=== PATIENT | female | born 1955 | race Caucasian/White ===

== ENCOUNTER 2017-11-11 14:47 | Emergency (ER) | payer MEDICARE, OTHER ==
[~2017-11-11] VITALS: Ht 172.7 cm; Wt 92.0 kg
[2017-11-11 14:53] VITALS: BP 141/62; PULSE 76; RESP 16; TEMP 98.4; O2SAT 98
--- NOTE | 2017-11-11 15:15 | PD ---
HPI . Ear foreign body Chief Complaint: Foreign Body Time Seen by Provider: 15:10 Travel History International Travel<30 days: No Contact w/Intl Traveler<30days: No Traveled to known affect area: No History of Present Illness HPI Patient presents with chief complaint of a bug in her left ear. This started just prior to presentation. She states that she was swimming in the pool when the bug flew in her ear. Symptoms are moderate to severe. PFSH Social History Tobacco Use: No Allergies-Medications (Allergen,Severity, Reaction): Coded Allergies: No Known Allergies (Unverified , 11/11/17) Review of Systems Except as stated in HPI: all other systems reviewed are Neg Physical Exam Narrative GENERAL: Awake and alert and in no acute distress. SKIN: Warm and dry. Normal color and turgor. HEAD: Normocephalic/atraumatic. EYES: Pupils are equal. Extraocular movements are intact. ENT: The bulb was successfully removed by the triage nurse. The patient's TMs are shiny blank with good light reflexes bilaterally. NECK: Normal range of motion. Supple. CARDIOVASCULAR: Regular rate and rhythm. RESPIRATORY: Nonlabored respirations. Normal sats. MUSCULOSKELETAL: Atraumatic. Normal muscle tone. NEUROLOGICAL: A and O 3. Nonfocal. PSYCHIATRIC: Appropriate mood and affect. Data Data Last Documented VS Vital Signs Date Time Temp Pulse Resp B/P (MAP) Pulse Ox O2 Delivery O2 Flow Rate FiO2 11/11/17 14:53 98.4 76 16 141/62 (88) 98 Orders Orders Ed Discharge Order (11/11/17 15:11) [facility] Medical Decision Making Medical Screen Exam Complete: Yes Emergency Medical Condition: Yes Differential Diagnosis Differential diagnosis includes foreign body, ruptured TM, cerumen impaction Narrative Course This patient presents with a bug in her left ear. The back has been successfully removed. Diagnosis Primary Impression: Foreign body of ear, left Qualified Codes: T16.2XXA - Foreign body in left ear, initial encounter Patient Instructions: General Instructions, Ear Foreign Body (ED) Departure Forms: Tests/Procedures Disposition: 01 DISCHARGE HOME Condition: Stable Hilary Bejarano MD Nov 11, 2017 15:15
== END 2017-11-11 15:33 | disposition home or self-care (01) ==
LOC: NEPD 14:47
DX: T16.2XXA Foreign body in left ear, initial encounter (principal)
CPT/HCPCS: 99282

== ENCOUNTER 2017-11-24 17:53 | Observation (INO) | payer MEDICARE, OTHER ==
[~2017-11-24] VITALS: Ht 172.7 cm; Wt 91.0 kg
[2017-11-24 17:56] VITALS: BP 168/67; PULSE 67; RESP 17; TEMP 97.9; O2SAT 99
[2017-11-24] MEDS ORDERED: SODIUM CHLORID 0.9% 500 ML INJ 500 ML IV ONE (18:15)
[2017-11-24] MEDS ORDERED: ASPIRIN 325 MG TAB PO ONE (18:15)
[2017-11-24] MEDS ORDERED: NITROGLYCERIN 0.4 MG SL 25 TABS/BTL SL ONE (18:15)
[2017-11-24] MEDS ORDERED: METOCLOPRAMIDE HCL 10 MG/2 ML VIAL IV PUSH ONE (18:15)
[2017-11-24] MEDS ORDERED: MORPHINE SULFATE 4 MG/ML INJ IV PUSH ONE (18:15)
[2017-11-24 18:19] VITALS: RESP 18; O2SAT 99
[2017-11-24 18:20] VITALS: BP_SYST 124; BP_SYST 168; BP_DIAS 59; BP_DIAS 67; PULSE 56; RESP 18; O2SAT 99
[2017-11-24] MEDS ORDERED: LEVO.1 PO (18:22)
[2017-11-24] MEDS ORDERED: OMEP20TA93 PO (18:22)
[2017-11-24 18:43] LABS: AUTOMATED NEUTROPHIL # 4.4 TH/MM3 (1.8-7.7); BASOPHIL % 0.3 % (0.0-2.0); EOSINOPHIL # 0.1 TH/MM3 (0-0.4); EOSINOPHIL % 1.5 % (0.0-4.0); HEMATOCRIT 37.6 % (35.0-46.0); HEMOGLOBIN 12.1 GM/DL (11.6-15.3); LYMPH % 17.3 % (9.0-44.0); LYMPHOCYTE # 1.1 TH/MM3 (1.0-4.8); MEAN CELL VOLUME 82.4 FL (80.0-100.0); MEAN CORPUSCULAR HEMOGLOBIN 26.5 PG (27.0-34.0); MEAN CORPUSCULAR HGB CONC 32.1 % (32.0-36.0); MEAN PLATELET VOLUME 10.7 FL (7.0-11.0); MONO % 9.7 % (0.0-8.0); MONOCYTE # 0.6 TH/MM3 (0-0.9); NEUT % 71.2 % (16.0-70.0); PLATELET COUNT 170 TH/MM3 (150-450); RED BLOOD COUNT 4.56 MIL/MM3 (4.00-5.30); RED CELL DISTRIBUTION WIDTH 14.3 % (11.6-17.2); WHITE BLOOD COUNT 6.1 TH/MM3 (4.0-11.0)
[2017-11-24 19:01] LABS: PROTHROMBIN TIME - PATIENT 10.1 SEC (9.8-11.6)
[2017-11-24 19:11] LABS: ALT (GPT) 174 U/L (10-53)
--- NOTE | 2017-11-24 19:11 | RADRPT ---
EXAM DATE: 11/24/2017 6:41 PM EDT AGE/SEX: 62 years / Female INDICATIONS: Chest pain. CLINICAL DATA: This is the patient's initial encounter. Patient reports that signs and symptoms have been present for 1 day and indicates a pain score of 9/10. MEDICAL/SURGICAL HISTORY: None. None. COMPARISON: No prior exams available for comparison. FINDINGS: A single AP view of the chest demonstrates the lungs to be symmetrically aerated without evidence of mass, infiltrate or effusion. Mild basilar atelectasis. The cardiomediastinal contours are unremarka ble. Osseous structures are intact. CONCLUSION: Mild basilar atelectasis. No effusion or pneumothorax. Electronically signed by: Kirill Guerra MD 11/24/2017 7:09 PM EDT
[2017-11-24 19:20] LABS: ALBUMIN 3.7 GM/DL (3.4-5.0); ALKALINE PHOSPHATASE 242 U/L (45-117); AST (GOT) 299 U/L (15-37); BICARBONATE 22.7 MEQ/L (21.0-32.0); BLOOD UREA NITROGEN 12 MG/DL (7-18); CALCIUM 8.6 MG/DL (8.5-10.1); CHLORIDE 110 MEQ/L (98-107); GLOMERULAR FILTRATION RATE 50 ML/MIN (>89); GLUCOSE,RANDOM 118 MG/DL (74-106); SODIUM (NA) 142 MEQ/L (136-145); TOTAL BILIRUBIN ADULT 1.1 MG/DL (0.2-1.0); TOTAL PROTEIN 6.8 GM/DL (6.4-8.2); TROPONIN I LESS THAN 0.02 NG/ML (0.02-0.05)
--- NOTE | 2017-11-24 19:28 | PD ---
Physical Exam Date Seen by Provider: Nov 24, 2017 Time Seen by Provider: 18:40 Narrative I, Dr. Izaguirre, have reviewed the advance practice practitioner's documentation and am in agreement, met with the patient face to face, made the diagnosis, and the medical decision making was done by me. *My assessment and Findings: Patient seen and evaluated with PA, please see PA notes for further details. She is here with chest pains that started on its own , accompanied by nausea. She has not had any shortness of breath, vomiting, fevers, or other symptoms. Cardiac exam was fairly unremarkable. Abdomen is fairly nontender without guarding or rebound. EKG shows NSR, no ST elevation or depression, and no arrhythmias. No significant T-wave inversions. Laboratory Tests Test 11/24/17 18:20 Mean Corpuscular Hemoglobin 26.5 PG (27.0-34.0) Neutrophils (%) (Auto) 71.2 % (16.0-70.0) Monocytes (%) (Auto) 9.7 % (0.0-8.0) Activated Partial Thromboplast Time 23.8 SEC (24.3-30.1) Creatinine 1.10 MG/DL (0.50-1.00) Random Glucose 118 MG/DL (74-106) Alkaline Phosphatase 242 U/L (45-117) Aspartate Amino Transf (AST/SGOT) 299 U/L (15-37) Alanine Aminotransferase (ALT/SGPT) 174 U/L (10-53) Total Bilirubin 1.1 MG/DL (0.2-1.0) Chloride Level 110 MEQ/L (98-107) Estimat Glomerular Filtration Rate 50 ML/MIN (>89) Troponin I LESS THAN 0.02 NG/ML Initial chest x-ray and cardiac enzymes were unremarkable. EKG did not show any signs of dysrhythmias. Her lab work did show elevated liver enzymes and ultrasound was ordered for further evaluation. At this point, we are awaiting ultrasound for further disposition. Data Data Last Documented VS Vital Signs Date Time Temp Pulse Resp B/P (MAP) Pulse Ox O2 Delivery O2 Flow Rate FiO2 11/24/17 18:29 18 11/24/17 18:20 56 168/67 (100) 99 Room Air 124/59 (80) 11/24/17 17:56 97.9 Orders Orders Electrocardiogram (11/24/17 18:15) Ckmb (Isoenzyme) Profile (11/24/17 18:15) Complete Blood Count With Diff (11/24/17 18:15) Comprehensive Metabolic Panel (11/24/17 18:15) Magnesium (Mg) (11/24/17 18:15) Prothrombin Time / Inr (Pt) (11/24/17 18:15) Act Partial Throm Time (Ptt) (11/24/17 18:15) Troponin I (11/24/17 18:15) Lipase (11/24/17 18:15) Chest, Single Ap (11/24/17 18:15) Ecg Monitoring (11/24/17 18:15) Bilateral Bp Monitoring (11/24/17 18:15) Iv Access Insert/Monitor (11/24/17 18:15) Oximetry (11/24/17 18:15) Oxygen Administration (11/24/17 18:15) Aspirin (Aspirin) (11/24/17 18:15) Morphine Inj (Morphine Inj) (11/24/17 18:15) Nitroglycerin Sl (Nitrostat Sl) (11/24/17 18:15) Sodium Chlorid 0.9% 500 Ml Inj (Ns 500 M (11/24/17 18:15) Metoclopramide Inj (Reglan Inj) (11/24/17 18:15) CKMB (11/24/17 18:20) CKMB% (11/24/17 18:20) Us Abdomen Gallbladder (11/24/17 ) Labs Laboratory Tests Test 11/24/17 18:20 White Blood Count 6.1 TH/MM3 Red Blood Count 4.56 MIL/MM3 Hemoglobin 12.1 GM/DL Hematocrit 37.6 % Mean Corpuscular Volume 82.4 FL Mean Corpuscular Hemoglobin 26.5 PG Mean Corpuscular Hemoglobin Concent 32.1 % Red Cell Distribution Width 14.3 % Platelet Count 170 TH/MM3 Mean Platelet Volume 10.7 FL Neutrophils (%) (Auto) 71.2 % Lymphocytes (%) (Auto) 17.3 % Monocytes (%) (Auto) 9.7 % Eosinophils (%) (Auto) 1.5 % Basophils (%) (Auto) 0.3 % Neutrophils # (Auto) 4.4 TH/MM3 Lymphocytes # (Auto) 1.1 TH/MM3 Monocytes # (Auto) 0.6 TH/MM3 Eosinophils # (Auto) 0.1 TH/MM3 Basophils # (Auto) 0.0 TH/MM3 CBC Comment DIFF FINAL Differential Comment Prothrombin Time 10.1 SEC Prothromb Time International Ratio 1.0 RATIO Activated Partial Thromboplast Time 23.8 SEC Blood Urea Nitrogen 12 MG/DL Creatinine 1.10 MG/DL Random Glucose 118 MG/DL Total Protein 6.8 GM/DL Albumin 3.7 GM/DL Calcium Level 8.6 MG/DL Magnesium Level 2.0 MG/DL Alkaline Phosphatase 242 U/L Aspartate Amino Transf (AST/SGOT) 299 U/L Alanine Aminotransferase (ALT/SGPT) 174 U/L Total Bilirubin 1.1 MG/DL Sodium Level 142 MEQ/L Potassium Level 4.2 MEQ/L Chloride Level 110 MEQ/L Carbon Dioxide Level 22.7 MEQ/L Anion Gap 9 MEQ/L Estimat Glomerular Filtration Rate 50 ML/MIN Total Creatine Kinase 109 U/L Troponin I LESS THAN 0.02 NG/ML Lipase 248 U/L [facility] Medical Record Reviewed: Yes Supervised Visit with ELVER: Yes Diagnosis Primary Impression: Atypical chest pain Condition: Stable Samson Izaguirre MD Nov 24, 2017 19:28
--- NOTE | 2017-11-24 21:39 | RADRPT ---
EXAM DATE: 11/24/2017 9:08 PM EDT AGE/SEX: 62 years / Female INDICATIONS: RUQ pain. CLINICAL DATA: This is the patient's initial encounter. Patient reports that signs and/or symptoms h ave been present for 1 day and indicates a pain score of 7/10. MEDICAL/SURGICAL HISTORY: Gastroesophageal reflux disease. RUQ pain. Thyroid disease. Hysterectomy . Gastric bypass. COMPARISON: No prior exams available for comparison. MEASUREMENTS (cm x cm x cm): Liver:__ 20.2 cm length Common Bile Duct:__ 5mm FINDINGS: Liver: Increased echotexture without focal lesion or ductal dilation. Portal Vein: Hepatopedal flow seen in portal vein. Common Duct: No intraluminal mass or stone visualized. Gallbladder: Demonstrates no wall thickening or pericholecystic fluid. Stones visualized. Pancreas: Not well visualized. Right Kidney: Normal echotexture and cortical thickness. No mass or hydronephrosis. Other: None. CONCLUSION: 1. Positive for gallstones. No biliary ductal dilatation. Fatty liver, mildly enlarged to 20 cm. Electronically signed by: Kirill Guerra MD 11/24/2017 9:38 PM EDT
[2017-11-24 22:00] VITALS: BP 141/64; PULSE 84; RESP 16; O2SAT 100
[2017-11-24] MEDS ORDERED: ONDANSETRON HCL 4 MG/2 ML VIAL IV PUSH PRN (22:00)
[2017-11-24] MEDS ORDERED: SODIUM CHLORIDE 0.9% FLUSH 10 ML FLUSH IV FLUSH PRN (22:00)
[2017-11-24] MEDS ORDERED: ACETAMINOPHEN 500 MG CPLT PO PRN (22:00)
[2017-11-24 22:46] VITALS: BP 141/71; PULSE 86; RESP 18; TEMP 98.6; O2SAT 99
[2017-11-24] MEDS: ACETAMINOPHEN/HYDROcodone 325 MG/7.5 MG TAB PO PRN (23:17)
[2017-11-24 23:19] LABS: TROPONIN I LESS THAN 0.02 NG/ML (0.02-0.05)
[2017-11-25 00:53] VITALS: PULSE 87
[2017-11-25 01:27] LABS: TROPONIN I LESS THAN 0.02 NG/ML (0.02-0.05)
[2017-11-25 03:20] VITALS: BP 137/60; PULSE 97; RESP 17; TEMP 97.9; O2SAT 97
[2017-11-25] MEDS: ACETAMINOPHEN/HYDROcodone 325 MG/7.5 MG TAB PO PRN ×2 (03:26→08:24)
[2017-11-25 07:37] VITALS: O2SAT 97
[2017-11-25 08:27] VITALS: BP 154/65; PULSE 76; RESP 20; TEMP 98.6; O2SAT 98
[2017-11-25] MEDS ORDERED: SODIUM CHLORIDE 0.9% FLUSH 10 ML FLUSH IV FLUSH SCH (09:00)
--- NOTE | 2017-11-25 09:29 | HHI.HP ---
HPI Service Chest pain center Primary Care Physician Scheduled to see a new primary care physician Sunday a.m. but does not remember the name Chief Complaint Epigastric and chest pain History of Present Illness Very pleasant 62-year-old lady recently retired here from [place] with a history of systemic lupus Anny's thyroiditis fibromyalgia gastric bypass and spinal stenosis. Yesterday after visiting her who has been in the hospital here for several weeks she went home had a hamburger and within a couple of hours developed excruciating pain in the subxiphoid area radiating up into her chest and through into her back. This pain was the most severe she has ever experienced. It was so severe that it precipitated vomiting with no nausea. This began about 3 in the afternoon was described as greater than 10 out of 10 and was relieved only after she came to the hospital at about 730 or 8 :30 at night. She had no other associated symptoms. Review of Systems Cardiovascular: COMPLAINS OF: See HPI Gastrointestinal: COMPLAINS OF: Vomiting Psychiatric: COMPLAINS OF: Anxiety, Depression, Sleep disturbances Endocrine: COMPLAINS OF: Thyroid disease Past Family Social History Allergies: Coded Allergies: No Known Allergies (Unverified , 11/11/17) Past Medical History Systemic lupus treated with Plaquenil but in remission for the last 8 years Anny's thyroiditis in remission Spinal stenosis Fibromyalgia Past Surgical History Hysterectomy in 1990 Gastric bypass in 2009 Reported Medications Reported Meds & Active Scripts Active Reported Synthroid (Levothyroxine Sodium) 100 Mcg Tab 100 Mcg PO DAILY Omeprazole 20 Mg Tab 40 Mg PO DAILY Active Ordered Medications Current Medications Medications (Trade) Dose Ordered Sig/Bert Route Start Time Stop Time Status Last Admin (NS Flush) 2 ml UNSCH PRN IV FLUSH 11/24/17 22:00 (NS Flush) 2 ml BID IV FLUSH 11/25/17 09:00 11/25/17 08:24 (Tylenol) 500 mg Q4H PRN PO 11/24/17 22:00 ([place] 7.5-325 Mg) 1 tab Q4H PRN PO 11/24/17 22:00 11/25/17 08:24 (Zofran Inj) 4 mg Q6H PRN IV PUSH 11/24/17 22:00 Family History Mother age 69 complications from a fall Father age 77 of cancer of the pancreas liver Social History No alcohol or tobacco Retired living here with her who is currently in the hospital in quite ill precipitating considerable stress Physical Exam Vital Signs Vital Signs Date Time Temp Pulse Resp B/P (MAP) Pulse Ox O2 Delivery O2 Flow Rate FiO2 11/25/17 08:27 98.6 76 20 154/65 (94) 98 11/25/17 07:37 97 21 11/25/17 03:20 97.9 97 17 137/60 (85) 97 11/25/17 00:53 87 11/25/17 00:45 21 11/24/17 22:46 98.6 86 18 141/71 (94) 99 11/24/17 22:30 11/24/17 22:00 84 16 141/64 (89) 100 Room Air 11/24/17 18:29 18 11/24/17 18:29 18 11/24/17 18:20 56 18 168/67 (100) 99 Room Air 124/59 (80) 11/24/17 18:19 99 Room Air 11/24/17 18:19 18 99 Room Air 11/24/17 17:57 69 18 99 Room Air 11/24/17 17:56 97.9 67 17 168/67 (100) 99 Physical Exam Alert cooperative lady in minimal pain at the time of this exam she is obese Skin warm and dry and Head normocephalic atraumatic care short but normal distribution Eyes PERRLA EOMI sclera clear Mouth mucous membranes moist and well papillated no lesions Neck supple no JVD masses nodes or bruits thyroid is not palpable Chest tender at the subxiphoid process with good breath sounds no rales wheezes or rhonchi Cardiovascular regular sinus rhythm no gallops or rubs a very soft 1/6 murmur is noted Abdomen tender in the epigastric area but no masses no guarding or rebound Extremities no clubbing cyanosis or edema Neurologic cranial nerves are intact gross motor movements are intact all 4 extremities Laboratory Laboratory Tests Test 11/24/17 18:20 11/24/17 22:14 11/25/17 00:40 White Blood Count 6.1 Red Blood Count 4.56 Hemoglobin 12.1 Hematocrit 37.6 Mean Corpuscular Volume 82.4 Mean Corpuscular Hemoglobin 26.5 Mean Corpuscular Hemoglobin Concent 32.1 Red Cell Distribution Width 14.3 Platelet Count 170 Mean Platelet Volume 10.7 Neutrophils (%) (Auto) 71.2 Lymphocytes (%) (Auto) 17.3 Monocytes (%) (Auto) 9.7 Eosinophils (%) (Auto) 1.5 Basophils (%) (Auto) 0.3 Neutrophils # (Auto) 4.4 Lymphocytes # (Auto) 1.1 Monocytes # (Auto) 0.6 Eosinophils # (Auto) 0.1 Basophils # (Auto) 0.0 CBC Comment DIFF FINAL Differential Comment Prothrombin Time 10.1 Prothromb Time International Ratio 1.0 Activated Partial Thromboplast Time 23.8 Blood Urea Nitrogen 12 Creatinine 1.10 Random Glucose 118 Total Protein 6.8 Albumin 3.7 Calcium Level 8.6 Magnesium Level 2.0 Alkaline Phosphatase 242 Aspartate Amino Transf (AST/SGOT) 299 Alanine Aminotransferase (ALT/SGPT) 174 Total Bilirubin 1.1 Sodium Level 142 Potassium Level 4.2 Chloride Level 110 Carbon Dioxide Level 22.7 Anion Gap 9 Estimat Glomerular Filtration Rate 50 Total Creatine Kinase 109 77 71 Creatine Kinase MB 0.6 Troponin I LESS THAN 0.02 LESS THAN 0.02 LESS THAN 0.02 Lipase 248 Result Diagram: 11/24/17 18211/24/17 182 Imaging Chest x-ray unremarkable Gallbladder shows gallstones Course Patient is ruled out for ACS with negative enzymes and EKGs. However she has mildly elevated liver functions and alk phos set for TACE with documented gallstones. Her episode is most likely related to an attack of cholecystitis. She is stable at this time and scheduled to see her new primary care physician in the morning. She strongly declines either a walking stress test or a nuclear stress test and therefore is discharged with information regarding her hospitalization to discuss with her primary care physician in the morning. Caprini VTE Risk Assessment Caprini VTE Risk Assessment: No/Low Risk (score <= 1) Caprini Risk Assessment Model Point Value = 1 Point Value = 2 Point Value = 3 Point Value = 5 Age 41-60 Minor surgery BMI > 25 kg/m2 Swollen legs Varicose veins or History of unexplained or recurrent spontaneous Oral contraceptives or hormone replacement Sepsis (< 1 month) Serious lung disease, including pneumonia (< 1 month) Abnormal pulmonary function Acute myocardial infarction Congestive heart failure (< 1 month) History of inflammatory bowel disease Medical patient at bed rest Age 61-74 Arthroscopic surgery Major open surgery (> 45 min) Laparoscopic surgery (> 45 min) Malignancy Confined to bed (> 72 hours) Immobilizing plaster cast Central venous access Age >= 75 History of VTE Family history of VTE Factor V Leiden Prothrombin [id number] Lupus anticoagulant Anticardiolipin antibodies Elevated serum homocysteine Heparin-induced thrombocytopenia Other congenital or acquired thrombophilia Stroke (< 1 month) Elective arthroplasty Hip, pelvis, or leg fracture Acute spinal cord injury (< 1 month) Prophylaxis Regimen Total Risk Factor Score Risk Level Prophylaxis Regimen 0-1 Low Early ambulation 2 Moderate Order ONE of the following: *Sequential Compression Device (SCD) *Heparin 5000 units SQ BID 3-4 Higher Order ONE of the following medications: *Heparin 5000 units SQ TID *Enoxaparin/Lovenox 40 mg SQ daily (WT < 150 kg, CrCl > 30 mL/min) *Enoxaparin/Lovenox 30 mg SQ daily (WT < 150 kg, CrCl > 10-29 mL/min) *Enoxaparin/Lovenox 30 mg SQ BID (WT < 150 kg, CrCl > 30 mL/min) AND/OR *Sequential Compression Device (SCD) 5 or more Highest Order ONE of the following medications: *Heparin 5000 units SQ TID (Preferred with Epidurals) *Enoxaparin/Lovenox 40 mg SQ daily (WT < 150 kg, CrCl > 30 mL/min) *Enoxaparin/Lovenox 30 mg SQ daily (WT < 150 kg, CrCl > 10-29 mL/min) *Enoxaparin/Lovenox 30 mg SQ BID (WT < 150 kg, CrCl > 30 mL/min) AND *Sequential Compression Device (SCD) Assessment and Plan Problem List: (1) Gastric bypass status for obesity ICD Codes: Z98.84 - Bariatric surgery status Status: Chronic (2) Gall bladder disease ICD Codes: K82.9 - Disease of gallbladder, unspecified Status: Acute Plan: Patient has a positive scan for gallstones with positive alk phos slightly elevated LFTs. She is referred to follow-up with her primary care physician in the morning (3) Chest pain of uncertain etiology ICD Codes: R07.89 - Other chest pain Status: Acute Plan: Patient ruled out for ACS by chest pain center protocol. She declined further stress testing either by exercise or nuclear scan (4) Lupus (systemic lupus erythematosus) ICD Codes: M32.9 - Systemic lupus erythematosus, unspecified Status: Chronic (5) Thyroiditis, chronic ICD Codes: E06.5 - Other chronic thyroiditis Status: Resolved (6) Fibromyalgia ICD Codes: M79.7 - Fibromyalgia Status: Chronic Problem Qualifiers (1) Lupus (systemic lupus erythematosus): Wilian Eisenberg MD Nov 25, 2017 09:29
--- NOTE | 2017-11-25 09:44 | HHI.DCPOC ---
Discharge Care Plan Diagnosis: (1) Chest pain of uncertain etiology (2) Gall bladder disease (3) Lupus (systemic lupus erythematosus) (4) Thyroiditis, chronic (5) Fibromyalgia (6) Gastric bypass status for obesity Goals to Promote Your Health * To prevent worsening of your condition and complications * To maintain your health at the optimal level Directions to Meet Your Goals Take your medications as prescribed Follow your dietary instruction Follow activity as directed Keep your appointments as scheduled Take your immunizations and boosters as scheduled If your symptoms worsen call your PCP, if no PCP go to Urgent Care Center or Emergency Room Smoking is Dangerous to Your Health. Avoid second hand smoke Call the 24-hour hour crisis hotline for domestic abuse at [facility] Nov 25, 2017 09:44
--- NOTE | 2017-11-25 13:47 | EKG ---
Date Performed: 11/24/2017 Time Performed: 22:04:57 PTAGE: 62 years EKG: Sinus rhythm POSSIBLE LEFT ATRIAL ENLARGEMENT LOW QRS VOLTAGE IN PRECORDIAL LEADS BORDERLINE ECG PREVIOUS TRACING : 11/24/2017 17.56 Since the previous tracing, no significant change noted DOCTOR: Wilian Eisenberg Interpretating Date/Time 11/25/2017 13:44:11
--- NOTE | 2017-11-25 13:58 | EKG ---
Date Performed: 11/24/2017 Time Performed: 17:56:51 PTAGE: 62 years EKG: Sinus rhythm POSSIBLE LEFT ATRIAL ENLARGEMENT BORDERLINE ECG NO PREVIOUS TRACING DOCTOR: Wilian Eisenberg Interpretating Date/Time 11/25/2017 13:48:53
--- NOTE | 2017-11-26 13:24 | EKG ---
Date Performed: 11/25/2017 Time Performed: 00:25:39 PTAGE: 62 years EKG: Sinus rhythm WITH FIRST DEGREE AV BLOCK LOW QRS VOLTAGE IN PRECORDIAL LEADS ABNORMAL ECG PREVIOUS TRACING : 11/24/2017 22.04 Since the previous tracing, no significant change noted DOCTOR: Wilian Eisenberg Interpretating Date/Time 11/26/2017 13:22:58
--- NOTE | 2017-11-29 11:16 | PD ---
HPI Chief Complaint: Chest Pain Time Seen by Provider: 19:28 Travel History International Travel<30 days: No Contact w/Intl Traveler<30days: No Traveled to known affect area: No History of Present Illness HPI 62-year-old female that presents to the ED for evaluation of chest pain with nausea and vomiting. Patient started with pain for about 3 hours before coming. Patient apparently developed this pain will trying to visit her significant other. Apparently her is recently admitted to the hospital here. Patient has been having this pain since it feels like a pressure. She states that the pain stays in the mid chest and causes nausea. Feels like a pressure. Does not radiate. She does state that she has a history of ACS as well as Anny thyroiditis, fibromyalgia, lupus, as well as spinal stenosis. Has no allergies to medication. No other medical issues. No urinary or bowel movement issues. Pain per patient is 7 out of 10. She did not took anything for this. No recent injury. PFSH Past Medical History Heart Rhythm Problems: No (heart murmur) Cardiac Catheterization: Yes High Cholesterol: No Congestive Heart Failure: No Diabetes: No Patient Takes Glucophage: No Diminished Hearing: No GERD: Yes Genitourinary: Yes Medical other: Yes Thyroid Disease: Yes Tetanus Vaccination: > 5 Years Influenza Vaccination: No ?: Not : 2 Para: 2 Past Surgical History Abdominal Surgery: Yes Coronary Artery Bypass Graft: No Gynecologic Surgery: Yes Hysterectomy: Yes Social History Alcohol Use: Yes (ocassionally) Tobacco Use: No Substance Use: Yes (marianna) Allergies-Medications (Allergen,Severity, Reaction): Coded Allergies: No Known Allergies (Unverified , 11/26/17) Reported Meds & Prescriptions Reported Meds & Active Scripts Active Reported Synthroid (Levothyroxine Sodium) 100 Mcg Tab 100 Mcg PO DAILY Omeprazole 20 Mg Tab 40 Mg PO DAILY Review of Systems Except as stated in HPI: all other systems reviewed are Neg Physical Exam Narrative GENERAL: SKIN: Warm and dry. HEAD: Atraumatic. Normocephalic. EYES: Pupils equal and round. No scleral icterus. No injection or drainage. ENT: No nasal bleeding or discharge. Mucous membranes pink and moist. Tongue is midline. No uvula deviation NECK: Trachea midline. No JVD. CARDIOVASCULAR: Regular rate and rhythm. No murmurs, S3, S4. RESPIRATORY: No accessory muscle use. Clear to auscultation. Breath sounds equal bilaterally. GASTROINTESTINAL: Abdomen soft, non-tender, nondistended. Hepatic and splenic margins not palpable. MUSCULOSKELETAL: Extremities without clubbing, cyanosis, or edema. No obvious deformities. Full range of motion of the upper and lower extremities bilaterally. 2+ pulses bilaterally. NEUROLOGICAL: Awake and alert. No obvious cranial nerve deficits. Motor grossly within normal limits. Five out of 5 muscle strength in the arms and legs. Normal speech. PSYCHIATRIC: Appropriate mood and affect; insight and judgment normal. Data Data Orders Orders Electrocardiogram (11/24/17 18:15) Ckmb (Isoenzyme) Profile (11/24/17 18:15) Complete Blood Count With Diff (11/24/17 18:15) Comprehensive Metabolic Panel (11/24/17 18:15) Magnesium (Mg) (11/24/17 18:15) Prothrombin Time / Inr (Pt) (11/24/17 18:15) Act Partial Throm Time (Ptt) (11/24/17 18:15) Troponin I (11/24/17 18:15) Lipase (11/24/17 18:15) Chest, Single Ap (11/24/17 18:15) Ecg Monitoring (11/24/17 18:15) Bilateral Bp Monitoring (11/24/17 18:15) Iv Access Insert/Monitor (11/24/17 18:15) Oximetry (11/24/17 18:15) Oxygen Administration (11/24/17 18:15) Aspirin (Aspirin) (11/24/17 18:15) Morphine Inj (Morphine Inj) (11/24/17 18:15) Nitroglycerin Sl (Nitrostat Sl) (11/24/17 18:15) Sodium Chlorid 0.9% 500 Ml Inj (Ns 500 M (11/24/17 18:15) Metoclopramide Inj (Reglan Inj) (11/24/17 18:15) CKMB (11/24/17 18:20) CKMB% (11/24/17 18:20) Us Abdomen Gallbladder (11/24/17 ) Admit Order (Ed Use Only) (11/24/17 21:47) Activity Bed Rest With Brp (11/24/17 21:47) Vital Signs (Adult) Q4H (11/24/17 21:47) Cardiac Rhythm .As Directed (11/24/17 21:47) Notify Dr: Other .PRN (11/24/17 21:47) Notify Dr. Parameters (11/24/17 21:47) Resp Oxygen Nasal Cannula (11/24/17 ) Ckmb (Isoenzyme) Profile (11/24/17 21:47) Ckmb (Isoenzyme) Profile (11/25/17 00:47) Troponin I (11/24/17 21:47) Troponin I (11/25/17 00:47) Electrocardiogram (11/24/17 21:47) Electrocardiogram (11/25/17 00:47) ^ Obtain (11/24/17 21:47) Sodium Chloride 0.9% Flush (Ns Flush) (11/24/17 22:00) Sodium Chloride 0.9% Flush (Ns Flush) (11/25/17 09:00) Acetaminophen (Tylenol) (11/24/17 22:00) Acetamin-Hydrocod 325-7.5 Mg ([place]isle 7.5 (11/24/17 22:00) Ondansetron Inj (Zofran Inj) (11/24/17 22:00) Fiberglass Model Maker / Telemetry ADINA.Q8H (11/24/17 21:47) Labs Laboratory Tests Test 11/24/17 18:20 White Blood Count 6.1 TH/MM3 Red Blood Count 4.56 MIL/MM3 Hemoglobin 12.1 GM/DL Hematocrit 37.6 % Mean Corpuscular Volume 82.4 FL Mean Corpuscular Hemoglobin 26.5 PG Mean Corpuscular Hemoglobin Concent 32.1 % Red Cell Distribution Width 14.3 % Platelet Count 170 TH/MM3 Mean Platelet Volume 10.7 FL Neutrophils (%) (Auto) 71.2 % Lymphocytes (%) (Auto) 17.3 % Monocytes (%) (Auto) 9.7 % Eosinophils (%) (Auto) 1.5 % Basophils (%) (Auto) 0.3 % Neutrophils # (Auto) 4.4 TH/MM3 Lymphocytes # (Auto) 1.1 TH/MM3 Monocytes # (Auto) 0.6 TH/MM3 Eosinophils # (Auto) 0.1 TH/MM3 Basophils # (Auto) 0.0 TH/MM3 CBC Comment DIFF FINAL Differential Comment Prothrombin Time 10.1 SEC Prothromb Time International Ratio 1.0 RATIO Activated Partial Thromboplast Time 23.8 SEC Blood Urea Nitrogen 12 MG/DL Creatinine 1.10 MG/DL Random Glucose 118 MG/DL Total Protein 6.8 GM/DL Albumin 3.7 GM/DL Calcium Level 8.6 MG/DL Magnesium Level 2.0 MG/DL Alkaline Phosphatase 242 U/L Aspartate Amino Transf (AST/SGOT) 299 U/L Alanine Aminotransferase (ALT/SGPT) 174 U/L Total Bilirubin 1.1 MG/DL Sodium Level 142 MEQ/L Potassium Level 4.2 MEQ/L Chloride Level 110 MEQ/L Carbon Dioxide Level 22.7 MEQ/L Anion Gap 9 MEQ/L Estimat Glomerular Filtration Rate 50 ML/MIN Total Creatine Kinase 109 U/L Creatine Kinase MB 0.6 NG/ML Troponin I LESS THAN 0.02 NG/ML Lipase 248 U/L MDM Medical Decision Making Medical Screen Exam Complete: Yes Emergency Medical Condition: Yes Medical Record Reviewed: Yes Interpretation(s) CBC & BMP Diagram 11/24/17 18:20 Total Protein 6.8, Albumin 3.7, Calcium Level 8.6, Magnesium Level 2.0, Alkaline Phosphatase 242 H, Aspartate Amino Transf (AST/SGOT) 299 H, Alanine Aminotransferase (ALT/SGPT) 174 H, Total Bilirubin 1.1 H Last Impressions Chest X-Ray 11/24/17 1815 Signed Impressions: CONCLUSION: Mild basilar atelectasis. No effusion or pneumothorax. Gall Bladder Ultrasound 11/24/17 0000 Signed Impressions: CONCLUSION: 1. Positive for gallstones. No biliary ductal dilatation. Fatty liver, mildly enlarged to 20 cm. EKG showed sinus rhythm with no sign of acute ischemia or arrythmia read by me and attending. troponin and CKMB negative Differential Diagnosis Chest pain versus a typical chest pain versus chronic pain versus gallbladder disease Narrative Course 62-year-old female that presents to the ED for evaluation of chest pain. Patient was properly examined and was found to have signs and symptoms consistent with appears to be chest pain. Unclear etiology at this time. She does have risk factors for ACS. Labs and imaging order. Labs and imaging unremarcable other than elevated liver enzymes. US ordered and showed gallstones but no sign of cholecystitis. My attending Dr. Contreras evaluated the patient and recommends admission to the chest pain center. Patient agrees with this. Patient was admitted to the chest pain center by me. Diagnosis Primary Impression: Atypical chest pain Admitting Information Admitting Physician Requests: Observation Patient Instructions: Chest Pain (DC), Heart Healthy Diet (DC) Condition: Stable Simone Connolly Nov 29, 2017 11:16
== END 2017-11-25 13:14 | disposition home or self-care (01) ==
LOC: NEPE 17:53 → NEDA 21:49 → NEPHCDU 22:36
PROVIDERS: ADMIT Internal Medicine Interventional Cardiology; ATTEND Internal Medicine Interventional Cardiology
DX: R07.89 Other chest pain (principal); K82.9 Disease of gallbladder, unspecified; M32.9 Systemic lupus erythematosus, unspecified; E06.5 Other chronic thyroiditis; M79.7 Fibromyalgia; Z98.84 Bariatric surgery status; E06.3 Autoimmune thyroiditis; R11.2 Nausea with vomiting, unspecified; R94.31 Abnormal electrocardiogram [ECG] [EKG]
CPT/HCPCS: 71045; 76705; 80053; 82550; 82552; 83690; 83735; 84484; 85025; 85610; 85730; 93005; 96361; 96374; 96375; 99285; G0378; J2270; J2765; J7040

== ENCOUNTER 2017-11-26 17:00 | Inpatient (IN) | payer MEDICARE, OTHER ==
[~2017-11-26] VITALS: Ht 172.7 cm; Wt 90.0 kg
[~2017-11-26 17:00] MED LIST: LEVO.1 PO; OMEP20TA93 PO
[2017-11-26 17:30] VITALS: BP 140/64; PULSE 79; RESP 16; TEMP 99.5; O2SAT 99
[2017-11-26] MEDS ORDERED: SODIUM CHLOR 0.9% 1000 ML INJ 1,000 ML IV SCH (19:40)
--- NOTE | 2017-11-26 19:44 | PD ---
HPI Chief Complaint: GI Complaint Time Seen by Provider: 19:32 Travel History International Travel<30 days: No Contact w/Intl Traveler<30days: No Traveled to known affect area: No History of Present Illness HPI 62-year-old female presents for evaluation of abdominal pain, nausea and vomiting. Symptoms initially started 4-5 days ago after eating hamburger. Initially the pain radiated into the chest and into her back. She was seen here and admitted him to the chest pain center. She was ruled out for ACS. She had a right upper quadrant ultrasound which was positive for gallstones and the metals analyst felt that her pain was related to her gallbladder. She followed up with the primary care physician today who is trying to refer her to a surgeon but cannot get an appointment until January. In meanwhile she has been having persistent and worsening abdominal pain as well as persistent nausea and vomiting which prompted reevaluation today. The pain is an aching pain in the right upper and left upper quadrants, constant, currently no aggravating or relieving factors. She reports that she has been able to keep down a little bit of fluid intermittently but has not had any solid foods 3 days. She reports that she has had chills and myalgias but no objective fevers. Denies dysuria, flank pain, chest pain, shortness of breath. No other complaints at this time. PFSH Past Medical History Heart Rhythm Problems: No (heart murmur) Cardiac Catheterization: Yes High Cholesterol: No Congestive Heart Failure: No Diabetes: No Diminished Hearing: No GERD: Yes Genitourinary: Yes Heparin Induced Thrombocytopen: No Hypertension: No Immunizations Current: Yes Thyroid Disease: Yes Tetanus Vaccination: Unknown Influenza Vaccination: No ?: Not : 2 Para: 2 Past Surgical History Abdominal Surgery: Yes Coronary Artery Bypass Graft: No Gynecologic Surgery: Yes Hysterectomy: Yes Family History Family Myocardial Infarction: Yes (grandfathers: both of [place]) Social History Alcohol Use: Yes (ocassionally) Tobacco Use: No Substance Use: Yes ([facility]) Allergies-Medications (Allergen,Severity, Reaction): Coded Allergies: No Known Allergies (Unverified , 11/26/17) Reported Meds & Prescriptions Reported Meds & Active Scripts Active Reported Synthroid (Levothyroxine Sodium) 100 Mcg Tab 100 Mcg PO DAILY Omeprazole 20 Mg Tab 40 Mg PO DAILY Review of Systems Except as stated in HPI: all other systems reviewed are Neg Physical Exam Narrative GENERAL: Well-developed well-nourished female no acute distress vital signs reviewed SKIN: Warm and dry. HEAD: Atraumatic. Normocephalic. EYES: Pupils equal and round. No scleral icterus. No injection or drainage. ENT: No nasal bleeding or discharge. Mucous membranes pink and moist. NECK: Trachea midline. No JVD. CARDIOVASCULAR: Regular rate and rhythm. No murmur appreciated. RESPIRATORY: No accessory muscle use. Clear to auscultation. Breath sounds equal bilaterally. GASTROINTESTINAL: Abdomen soft, tender to palpation right upper quadrant left upper quadrant without guarding. MUSCULOSKELETAL: No obvious deformities. No clubbing. No cyanosis. No edema. NEUROLOGICAL: Awake and alert. No obvious cranial nerve deficits. Motor grossly within normal limits. Normal speech. PSYCHIATRIC: Appropriate mood and affect; insight and judgment normal. Data Data Last Documented VS Vital Signs Date Time Temp Pulse Resp B/P (MAP) Pulse Ox O2 Delivery O2 Flow Rate FiO2 11/26/17 21:24 16 11/26/17 17:30 99.5 79 140/64 (89) 99 Orders Orders Complete Blood Count With Diff (11/26/17 19:40) Comprehensive Metabolic Panel (11/26/17 19:40) Lipase (11/26/17 19:40) Prothrombin Time / Inr (Pt) (11/26/17 19:40) Act Partial Throm Time (Ptt) (11/26/17 19:40) Urinalysis - C+S If Indicated (11/26/17 19:40) Us Abdomen Gallbladder (11/26/17 ) Iv Access Insert/Monitor (11/26/17 19:40) Morphine Inj (Morphine Inj) (11/26/17 19:45) Pantoprazole Inj (Protonix Inj) (11/26/17 19:45) Sodium Chlor 0.9% 1000 Ml Inj (Ns 1000 M (11/26/17 19:40) Metoclopramide Inj (Reglan Inj) (11/26/17 19:45) Lactic Acid (11/26/17 19:40) Electrocardiogram (11/26/17 19:40) Piperacil-Tazo 3.375 Gm Premix (Zosyn 3. (11/26/17 21:00) Admit Order (Ed Use Only) (11/26/17 ) Labs Laboratory Tests Test 11/26/17 20:00 White Blood Count 5.2 TH/MM3 Red Blood Count 4.78 MIL/MM3 Hemoglobin 12.5 GM/DL Hematocrit 38.7 % Mean Corpuscular Volume 80.9 FL Mean Corpuscular Hemoglobin 26.2 PG Mean Corpuscular Hemoglobin Concent 32.4 % Red Cell Distribution Width 14.2 % Platelet Count 186 TH/MM3 Mean Platelet Volume 10.6 FL Neutrophils (%) (Auto) 77.1 % Lymphocytes (%) (Auto) 11.7 % Monocytes (%) (Auto) 8.7 % Eosinophils (%) (Auto) 2.2 % Basophils (%) (Auto) 0.3 % Neutrophils # (Auto) 4.0 TH/MM3 Lymphocytes # (Auto) 0.6 TH/MM3 Monocytes # (Auto) 0.5 TH/MM3 Eosinophils # (Auto) 0.1 TH/MM3 Basophils # (Auto) 0.0 TH/MM3 CBC Comment DIFF FINAL Differential Comment Prothrombin Time 10.2 SEC Prothromb Time International Ratio 1.0 RATIO Activated Partial Thromboplast Time 21.5 SEC Urine Color Dolores Urine Turbidity CLEAR Urine pH 5.0 Urine Specific Keeler 1.027 Urine Protein 30 mg/dL Urine Glucose (UA) NEG mg/dL Urine Ketones NEG mg/dL Urine Occult Blood LARGE Urine Nitrite NEG Urine Bilirubin MOD Urine Urobilinogen 4.0 OR GREATER mg/dL Urine Leukocyte Esterase TRACE Urine RBC 169 /hpf Urine WBC 7 /hpf Urine Squamous Epithelial Cells 2 /hpf Urine Bacteria RARE /hpf Urine Mucus FEW /lpf Urine Yeast (Budding) RARE Microscopic Urinalysis Comment CULT NOT INDICATED Blood Urea Nitrogen 10 MG/DL Creatinine 1.13 MG/DL Random Glucose 89 MG/DL Total Protein 7.5 GM/DL Albumin 3.7 GM/DL Calcium Level 9.1 MG/DL Alkaline Phosphatase 248 U/L Aspartate Amino Transf (AST/SGOT) 267 U/L Alanine Aminotransferase (ALT/SGPT) 472 U/L Total Bilirubin 4.1 MG/DL Sodium Level 139 MEQ/L Potassium Level 3.7 MEQ/L Chloride Level 107 MEQ/L Carbon Dioxide Level 22.8 MEQ/L Anion Gap 9 MEQ/L Estimat Glomerular Filtration Rate 49 ML/MIN Lactic Acid Level 0.7 mmol/L Lipase 205 U/L [facility] Medical Decision Making Medical Screen Exam Complete: Yes Emergency Medical Condition: Yes Medical Record Reviewed: Yes Differential Diagnosis Biliary colic, cholecystitis, choledocholithiasis, gastritis, peptic ulcer disease, pancreatitis, colitis Narrative Course The patient was placed on ECG monitoring pulse oximetry. A 12 EKG was ordered. Lab work, right upper quadrant ultrasound has been ordered. I reviewed her lab work from her recent visit. She had elevated bilirubin, AST, ALT, ALP and her gallbladder ultrasound was positive for stones. Since her discharge she has had constant unrelenting right upper quadrant pain. The patient's total bilirubin, AST and ALT are increased from previous visit. Ultrasound is consistent with cholecystitis. Dr. Woodson discussed with the on- call general surgeon who would like the patient to be admitted, he will consult , gastroenterology will consult. IV Zosyn ordered. Diagnosis Primary Impression: Cholecystitis Admitting Information Admitting Physician Requests: it Herminio Samayoa Nov 26, 2017 19:44
[2017-11-26] MEDS ORDERED: MORPHINE SULFATE 4 MG/ML INJ IV PUSH ONE (19:45)
[2017-11-26] MEDS ORDERED: PANTOPRAZOLE SODIUM 40 MG VIAL IVP ONE (19:45)
[2017-11-26] MEDS ORDERED: METOCLOPRAMIDE HCL 10 MG/2 ML VIAL IV PUSH ONE (19:45)
[2017-11-26 20:10] LABS: BASOPHIL % 0.3 % (0.0-2.0); EOSINOPHIL # 0.1 TH/MM3 (0-0.4); EOSINOPHIL % 2.2 % (0.0-4.0); HEMATOCRIT 38.7 % (35.0-46.0); HEMOGLOBIN 12.5 GM/DL (11.6-15.3); LYMPH % 11.7 % (9.0-44.0); LYMPHOCYTE # 0.6 TH/MM3 (1.0-4.8); MEAN CELL VOLUME 80.9 FL (80.0-100.0); MEAN CORPUSCULAR HEMOGLOBIN 26.2 PG (27.0-34.0); MEAN CORPUSCULAR HGB CONC 32.4 % (32.0-36.0); MEAN PLATELET VOLUME 10.6 FL (7.0-11.0); MONO % 8.7 % (0.0-8.0); MONOCYTE # 0.5 TH/MM3 (0-0.9); NEUT % 77.1 % (16.0-70.0); PLATELET COUNT 186 TH/MM3 (150-450); RED BLOOD COUNT 4.78 MIL/MM3 (4.00-5.30); RED CELL DISTRIBUTION WIDTH 14.2 % (11.6-17.2); WHITE BLOOD COUNT 5.2 TH/MM3 (4.0-11.0)
[2017-11-26 20:21] LABS: PROTHROMBIN TIME - PATIENT 10.2 SEC (9.8-11.6)
[2017-11-26 20:30] LABS: BACTERIA, URINE RARE /hpf; BILIRUBIN, URINE MOD (NEG); BLOOD, URINE LARGE (NEG); GLUCOSE,URINE NEG (NEG); KETONE, URINE NEG (NEG); MUCUS URINE FEW /lpf (OCC); NITRITE,URINE NEG (NEG); SQUAMOUS EPITHELIAL CELL URINE 2 /hpf (0-5); URINE COLOR Amber (YELLW/STRAW); URINE LEUKOCYTE ESTERASE TRACE (NEG)
[2017-11-26 20:46] LABS: ALBUMIN 3.7 GM/DL (3.4-5.0); ALKALINE PHOSPHATASE 248 U/L (45-117); ALT (GPT) 472 U/L (10-53); AST (GOT) 267 U/L (15-37); BICARBONATE 22.8 MEQ/L (21.0-32.0); BLOOD UREA NITROGEN 10 MG/DL (7-18); CALCIUM 9.1 MG/DL (8.5-10.1); CHLORIDE 107 MEQ/L (98-107); CREATININE 1.13 MG/DL (0.50-1.00); GLOMERULAR FILTRATION RATE 49 ML/MIN (>89); GLUCOSE,RANDOM 89 MG/DL (74-106); SODIUM (NA) 139 MEQ/L (136-145); TOTAL BILIRUBIN ADULT 4.1 MG/DL (0.2-1.0); TOTAL PROTEIN 7.5 GM/DL (6.4-8.2)
[2017-11-26] MEDS ORDERED: PIPERACIL-TAZO 3.375 GM PREMIX 50 ML IV ONE (21:00)
--- NOTE | 2017-11-26 21:01 | RADRPT ---
EXAM DATE: 11/26/2017 8:58 PM EDT AGE/SEX: 62 years / Female INDICATIONS: Increasing right upper quadrant pain. CLINICAL DATA: This is the patient's subsequent encounter. Patient reports that signs and/or symptom s have been present for 3 days and indicates a pain score of 10/10. MEDICAL/SURGICAL HISTORY: Gastroesophageal reflux disease. RUQ pain. Hysterectomy. Gastric bypass . COMPARISON: [facility] [place], US ABDOMEN - GALLBLADDER, 11/24/2017. . MEASUREMENTS (cm x cm x cm): Liver:__ 18.0 cm length Common Bile Duct:__ 6mm FINDINGS: Liver: Normal echotexture without focal lesion or ductal dilatation. Portal Vein: Hepatopedal flow seen in portal vein. Common Duct: No intraluminal mass or stone visualized. Gallbladder: Positive for gallstones with gallbladder sludge. Gallbladder wall thickened to 5 mm. Pancreas: The visualized portions are within normal limits Right Kidney: Normal echotexture and cortical thickness. No mass or hydronephrosis. Other: None. CONCLUSION: 1. Examination positive for gallstones with gallbladder sludge and gallbladder wall thickening which has developed over the last 2 days. No evidence for choledocholithiasis on ultrasound. Electronically signed by: Kirill Guerra MD 11/26/2017 9:00 PM EDT
[2017-11-26] MEDS ORDERED: SENNOSIDES 8.6 MG TAB PO PRN (22:15)
[2017-11-26] MEDS ORDERED: MAGNESIUM HYDROXIDE SUSP 30 ML CUP PO PRN (22:15)
[2017-11-26] MEDS ORDERED: MORPHINE SULFATE 4 MG/ML INJ IV PUSH PRN (22:15)
[2017-11-26] MEDS ORDERED: ACETAMINOPHEN 325 MG TAB PO PRN (22:15)
[2017-11-26] MEDS ORDERED: BISACODYL 10 MG SUPP RECTAL PRN (22:15)
[2017-11-26] MEDS ORDERED: SODIUM CHLORIDE 0.9% FLUSH 10 ML FLUSH IV FLUSH PRN (22:15)
[2017-11-26] MEDS ORDERED: NALOXONE HCL 0.4 MG/ML AMP IV PUSH PRN (22:15)
[2017-11-26] MEDS ORDERED: LACTULOSE SYRUP 20 GM/30 ML CUP PO PRN (22:15)
--- NOTE | 2017-11-26 22:33 | HHI.HP ---
[facility] Service Family Medicine Primary Care Physician Hemalatha Arriaza MD Admission Diagnosis Cholecystitis, choledocholithiasis Diagnoses: International Travel<30 Days: No Contact w/Intl Traveler<30days: No Known Affected Area: No History of Present Illness 62 yo female with history of gastric bypass, lupus, marika's thyroiditis presenting with a 2 day history of upper abdominal pain worsened with food intake. Episode first started on Sunday about half an hour after eating a burger from [employer]. She developed upper abdominal pain and came to ER. She was admitted to chest pain center to R/o ACS (which was negative). She was discharged home on 11/25, but her pain recurred and so she came back to ER. Of note, she has been avoiding food since Sunday due to it worsening her pain. Pain is aching/cramping and moderate-severe when present. Review of Systems Constitutional: COMPLAINS OF: Fever (Tmax 99.5), DENIES: Chills Endocrine: DENIES: Heat/cold intolerance Eyes: DENIES: Eye pain Ears, nose, mouth, throat: DENIES: Throat pain, Ear Pain, Sinus Pain Respiratory: DENIES: Cough, Wheezing, Shortness of breath Cardiovascular: COMPLAINS OF: Chest pain, DENIES: Palpitations Gastrointestinal: COMPLAINS OF: Abdominal pain, Nausea, DENIES: Constipation, Diarrhea, Vomiting (dry heaving) Genitourinary: DENIES: Dysuria Musculoskeletal: DENIES: Joint pain, Muscle aches Integumentary: DENIES: Rash Hematologic/lymphatic: DENIES: Bruising Immunologic/allergic: DENIES: Urticaria Neurologic: DENIES: Headache Psychiatric: DENIES: Anxiety, Depression Past Family Social History Past Medical History Gastric bypass Reflux Marika's thyroiditis Lupus - in remission, hasn't had treatment in 15 years Past Surgical History Hysterectomy for heavy menstrual bleeding Palmira-en-Y gastric bypass 2009 - complicated with liver laceration and renal failure requiring temporary dialysis Reported Medications Reported Meds & Active Scripts Active Reported Synthroid (Levothyroxine Sodium) 100 Mcg Tab 100 Mcg PO DAILY Omeprazole 20 Mg Tab 40 Mg PO DAILY Allergies: Coded Allergies: No Known Allergies (Unverified , 11/26/17) Active Ordered Medications Current Medications Medications (Trade) Dose Ordered Sig/Bert Route Start Time Stop Time Status Last Admin (Synthroid) 100 mcg DAILY@0600 PO 11/27/17 06:00 (Protonix) 40 mg DAILY PO 11/27/17 09:00 Sodium Chloride 1,000 ml @ 125 mls/hr Q8H IV 11/26/17 22:04 (NS Flush) 2 ml UNSCH PRN IV FLUSH 11/26/17 22:15 (NS Flush) 2 ml BID IV FLUSH 11/27/17 09:00 (Tylenol) 650 mg Q4H PRN PO 11/26/17 22:15 (Lovenox Inj) 40 mg Q24H SQ 11/26/17 23:00 (Narcan Inj) 0.4 mg UNSCH PRN IV PUSH 11/26/17 22:15 (Maria G-Colace) 1 tab BID PO 11/27/17 09:00 (Milk Of Magnesia Liq) 30 ml Q12H PRN PO 11/26/17 22:15 (Senokot) 17.2 mg Q12H PRN PO 11/26/17 22:15 (Dulcolax Supp) 10 mg DAILY PRN RECTAL 11/26/17 22:15 (Lactulose Liq) 30 ml DAILY PRN PO 11/26/17 22:15 (Morphine Inj) 2 mg Q4H PRN IV PUSH 11/26/17 22:15 (Morphine Inj) 4 mg Q4HR PRN IV PUSH 11/26/17 22:15 Family History Grandmother and an aunt had breast cancer. Other family members all healthy. Social History Recently moved from [place] Tob - Never smoker Alc - A glass of wine a few times a week Drugs - none Physical Exam Vital Signs Vital Signs Date Time Temp Pulse Resp B/P (MAP) Pulse Ox O2 Delivery O2 Flow Rate FiO2 11/26/17 21:24 16 11/26/17 17:30 99.5 79 16 140/64 (89) 99 Physical Exam GENERAL: WDWN late middle aged white female sitting up in bed, pleasant, NAD SKIN: No rashes, ecchymoses or lesions. Cool and dry. Tanned, no jaundice. HEAD: NC/AT EYES: PERRL. EOMI. No conjunctival injection or drainage. ENT: MMM, OP without erythema, tonsillar swelling, or exudate. NECK: Supple. No JVD. CARDIOVASCULAR: NRRR. Normal S1/S2. No MRG RESPIRATORY: CTAB. No crackles or wheezes. GASTROINTESTINAL: Midline vertical scar from gastric bypass. Abdomen soft, non- distended, mildly tender to palpation in epigastric area and RUQ. Schaefer's sign positive. No hepato-splenomegaly or palpable masses. No guarding, no peritoneal signs. MUSCULOSKELETAL: Extremities without clubbing, cyanosis, or edema. NEUROLOGICAL: Awake and alert. Cranial nerves II through XII grossly intact. Moves all extremities without difficulty. Normal speech. Laboratory Laboratory Tests Test 11/26/17 20:00 White Blood Count 5.2 Red Blood Count 4.78 Hemoglobin 12.5 Hematocrit 38.7 Mean Corpuscular Volume 80.9 Mean Corpuscular Hemoglobin 26.2 Mean Corpuscular Hemoglobin Concent 32.4 Red Cell Distribution Width 14.2 Platelet Count 186 Mean Platelet Volume 10.6 Neutrophils (%) (Auto) 77.1 Lymphocytes (%) (Auto) 11.7 Monocytes (%) (Auto) 8.7 Eosinophils (%) (Auto) 2.2 Basophils (%) (Auto) 0.3 Neutrophils # (Auto) 4.0 Lymphocytes # (Auto) 0.6 Monocytes # (Auto) 0.5 Eosinophils # (Auto) 0.1 Basophils # (Auto) 0.0 CBC Comment DIFF FINAL Differential Comment Prothrombin Time 10.2 Prothromb Time International Ratio 1.0 Activated Partial Thromboplast Time 21.5 Urine Color Dolores Urine Turbidity CLEAR Urine pH 5.0 Urine Specific Oliver 1.027 Urine Protein 30 Urine Glucose (UA) NEG Urine Ketones NEG Urine Occult Blood LARGE Urine Nitrite NEG Urine Bilirubin MOD Urine Urobilinogen 4.0 OR GREATER Urine Leukocyte Esterase TRACE Urine RBC 169 Urine WBC 7 Urine Squamous Epithelial Cells 2 Urine Bacteria RARE Urine Mucus FEW Urine Yeast (Budding) RARE Microscopic Urinalysis Comment CULT NOT INDICATED Blood Urea Nitrogen 10 Creatinine 1.13 Random Glucose 89 Total Protein 7.5 Albumin 3.7 Calcium Level 9.1 Alkaline Phosphatase 248 Aspartate Amino Transf (AST/SGOT) 267 Alanine Aminotransferase (ALT/SGPT) 472 Total Bilirubin 4.1 Sodium Level 139 Potassium Level 3.7 Chloride Level 107 Carbon Dioxide Level 22.8 Anion Gap 9 Estimat Glomerular Filtration Rate 49 Lactic Acid Level 0.7 Lipase 205 Result Diagram: 11/26/17199911/26/171999 Imaging Last Impressions Gall Bladder Ultrasound 11/26/17 0000 Signed Impressions: CONCLUSION: 1. Examination positive for gallstones with gallbladder sludge and gallbladder wall thickening which has developed over the last 2 days. No evidence for chol edocholithiasis on ultrasound. Cholangiopancreatography MRI 11/26/17 0000 Signed Impressions: CONCLUSION: 1. Gallstones with no evidence of intra or extrahepatic biliary tree dilatatio n. Candelario VTE Risk Assessment Caprini VTE Risk Assessment: Mod/High Risk (score >= 2) Assessment and Plan Assessment and Plan 62 yo female with h/o gastric bypass, lupus in remission, and hypothyroidism presenting with: Problem List: (1) Cholecystitis ICD Codes: K81.9 - Cholecystitis, unspecified Status: Acute Plan: Clinical picture and ultrasound consistent with cholecystitis WBC wnl Associated mild transaminitis MRCP without biliary duct dilation UA with significant bilirubin consistent with biliary disease - Continue Zosyn Q6H - Consult surgery and gastroenterology (will likely need either cholecystecomy or ERCP; ER physician spoke to Dr. Mace who recommended GI consult) - Trend CMP - NPO (2) Thyroiditis, chronic ICD Codes: E06.5 - Other chronic thyroiditis Status: Resolved Plan: Continue home Synthroid (3) FEN/PPX Plan: Fluids: NS at 125 cc/hr Elecs: Monitor, replete PRN Nutrition: NPO DVT: Lovenox Code status: Full code Dispo: Admit to inpatient, anticipate 2-3 day LOS Physician Certification 2 Midnight Certification Type: Admission for Inpatient Services Order for Inpatient Services The services are ordered in accordance with Medicare regulations or non- Medicare payer requirements, as applicable. In the case of services not specified as inpatient-only, they are appropriately provided as inpatient services in accordance with the 2-midnight benchmark. Estimated LOS (days): 3 days is the estimated time the patient will need to remain in the hospital, assuming treatment plan goals are met and no additional complications. Post-Hospital Plan: Home Prasanna Card MD R2 Nov 26, 2017 22:32
[2017-11-26] MEDS ORDERED: ENOXAPARIN SODIUM 40 MG/0.4 ML SYRINGE SQ SCH (23:00)
[2017-11-26 23:09] VITALS: BP 154/67; PULSE 85; RESP 16; O2SAT 98
--- NOTE | 2017-11-26 23:24 | RADRPT ---
EXAM DATE: 11/26/2017 11:14 PM EDT AGE/SEX: 62 years / Female INDICATIONS: Obstruction. Abdomen pain for five days. CLINICAL DATA: This is the patient's initial encounter. Patient reports that signs and symptoms have been present for 4 - 6 days and indicates a pain score of 8/10. MEDICAL/SURGICAL HISTORY: . Thyroid, Hushimotos, Fibromyagia. Gastric bypass. Hysterectomy. COMPARISON: No prior exams available for comparison. TECHNIQUE: Multiplanar, multisequence images of the abdomen were obtained without contrast including dedicated cholangiographic images. FINDINGS: Liver: The liver is homogeneous and normal in signal intensity with no focal defects. Intrahepatic Bile Ducts: There is no intrahepatic biliary ductal dilatation. Common Bile Duct: The common bile duct is normal in caliber No filling defects or obstructing lesio ns are identified. Gallbladder: Numerous gallstones identified without evidence of pericholecystic fluid or surrounding inflammation Pancreas: The pancreas appears normal in signal with no focal parenchymal abnormalities. The pancrea tic duct is normal in caliber with no filling defects, or obstructing lesions identified. CONCLUSION: 1. Gallstones with no evidence of intra or extrahepatic biliary tree dilatation. Electronically signed by: Heri Brady MD 11/26/2017 11:23 PM EDT
[2017-11-27] MEDS: SODIUM CHLOR 0.9% 1000 ML INJ 1,000 ML IV SCH ×4 (00:21→20:21)
[2017-11-27] MEDS: MORPHINE SULFATE 4 MG/ML INJ IV PUSH PRN ×6 (00:54→22:31)
[2017-11-27 01:10] VITALS: BP 130/60; PULSE 80; RESP 16; TEMP 99.4; O2SAT 98
[2017-11-27] MEDS: PIPERACIL-TAZO 3.375 GM PREMIX 50 ML IV SCH ×4 (02:57→20:20)
[2017-11-27 05:21] VITALS: BP 115/60; PULSE 72; RESP 16; TEMP 98.3; O2SAT 96
[2017-11-27] MEDS: LEVOTHYROXINE SODIUM 100 MCG TAB PO SCH (05:52)
[2017-11-27 07:29] LABS: AUTOMATED NEUTROPHIL # 2.1 TH/MM3 (1.8-7.7); BASOPHIL % 0.5 % (0.0-2.0); EOSINOPHIL # 0.1 TH/MM3 (0-0.4); EOSINOPHIL % 3.1 % (0.0-4.0); HEMATOCRIT 32.4 % (35.0-46.0); HEMOGLOBIN 10.3 GM/DL (11.6-15.3); LYMPH % 20.4 % (9.0-44.0); LYMPHOCYTE # 0.7 TH/MM3 (1.0-4.8); MEAN CELL VOLUME 81.9 FL (80.0-100.0); MEAN CORPUSCULAR HEMOGLOBIN 26.1 PG (27.0-34.0); MEAN CORPUSCULAR HGB CONC 31.9 % (32.0-36.0); MEAN PLATELET VOLUME 10.9 FL (7.0-11.0); MONO % 15.6 % (0.0-8.0); MONOCYTE # 0.5 TH/MM3 (0-0.9); NEUT % 60.4 % (16.0-70.0); PLATELET COUNT 138 TH/MM3 (150-450); RED BLOOD COUNT 3.96 MIL/MM3 (4.00-5.30); RED CELL DISTRIBUTION WIDTH 14.1 % (11.6-17.2); WHITE BLOOD COUNT 3.4 TH/MM3 (4.0-11.0)
--- NOTE | 2017-11-27 08:14 | PD.CONS ---
cc: Saravanan Mace MD [facility] Service General Surgery Consult Requested By Dr. Card Reason for Consult Acute cholecystitis Primary Care Physician Hemalatha Arriaza MD History of Present Illness This is a 62 year old female with past medical history of gastric bypass surgery complicated by an intraoperative liver laceration, Anny's thyroiditis, acid reflex and lupus. The patient came to the ED on Sunday evening with complaints of abdominal pain after eating a hamburger. She reports nausea, vomiting and diarrhea. She was worked up for ACS but workup was negative. A gallbladder ultrasound was completed which showed gallstones. The patient was sent home. She arrived back to the ED with continued abdominal pain. A gallbladder was obtained which shows gallstones with gallbladder wall thickening and sludge. Her WBC is normal. Her total bilirubin is 4. An MRCP was completed which does not show any ductal dilatation. Her abdominal pain is much better now. A General Surgery consultation has been requested. Review of Systems Constitutional: DENIES: Fatigue, Weight gain, Dizziness Endocrine: DENIES: Polydipsia, Polyuria, Polyphagia Eyes: DENIES: Diplopia, Eye inflammation Ears, nose, mouth, throat: DENIES: Hearing loss Respiratory: DENIES: Cough Cardiovascular: DENIES: Chest pain Gastrointestinal: COMPLAINS OF: Abdominal pain, Diarrhea, Nausea, Vomiting Genitourinary: DENIES: Urinary frequency Musculoskeletal: DENIES: Joint pain Integumentary: DENIES: Abnormal pigmentation Hematologic/lymphatic: DENIES: Bruising Immunologic/allergic: DENIES: Eczema Neurologic: DENIES: Abnormal gait, Headache, Localized weakness Psychiatric: DENIES: Confusion, Mood changes, Depression Past Family Social History Past Medical History Anny's thyroiditis Acid reflux Lupus Past Surgical History Gastric bypass in 2009 in [place]--- this was complicated by an intraoperative liver laceration which was repaired; post operatively she had ARF that required 6 weeks of hemodialysis Hysterectomy Reported Medications Omeprazole Levothyroxine Allergies: Coded Allergies: No Known Allergies (Unverified , 11/26/17) Active Ordered Medications Current Medications Medications (Trade) Dose Ordered Sig/Bert Route Start Time Stop Time Status Last Admin (Synthroid) 100 mcg DAILY@0600 PO 11/27/17 06:00 11/27/17 05:52 (Protonix) 40 mg DAILY PO 11/27/17 09:00 Sodium Chloride 1,000 ml @ 125 mls/hr Q8H IV 11/26/17 22:04 11/27/17 00:21 (NS Flush) 2 ml UNSCH PRN IV FLUSH 11/26/17 22:15 (NS Flush) 2 ml BID IV FLUSH 11/27/17 09:00 (Tylenol) 650 mg Q4H PRN PO 11/26/17 22:15 (Lovenox Inj) 40 mg Q24H SQ 11/26/17 23:00 11/27/17 00:21 (Narcan Inj) 0.4 mg UNSCH PRN IV PUSH 11/26/17 22:15 (Maria G-Colace) 1 tab BID PO 11/27/17 09:00 (Milk Of Magnesia Liq) 30 ml Q12H PRN PO 11/26/17 22:15 (Senokot) 17.2 mg Q12H PRN PO 11/26/17 22:15 (Dulcolax Supp) 10 mg DAILY PRN RECTAL 11/26/17 22:15 (Lactulose Liq) 30 ml DAILY PRN PO 11/26/17 22:15 (Morphine Inj) 2 mg Q4H PRN IV PUSH 11/26/17 22:15 (Morphine Inj) 4 mg Q4HR PRN IV PUSH 11/26/17 22:15 11/27/17 05:54 Piperacillin Sod/ Tazobactam Sod 50 ml @ 100 mls/hr Q6H IV 11/27/17 03:00 11/27/17 02:57 Family History Non contributory Social History Denies tobacco use Occasional glass of wine; not daily From [place]; moved to [place] in September. She is retired from [employer] where she worked in the [employer] department. Physical Exam Vital Signs Vital Signs Date Time Temp Pulse Resp B/P (MAP) Pulse Ox O2 Delivery O2 Flow Rate FiO2 11/27/17 05:21 98.3 72 16 115/60 (78) 96 11/27/17 01:10 99.4 80 16 130/60 (83) 98 11/26/17 23:25 11/26/17 23:09 85 16 154/67 (96) 98 Room Air 11/26/17 21:24 16 11/26/17 17:30 99.5 79 16 140/64 (89) 99 Physical Exam GENERAL: 62 year old female resting in bed in no acute distress. SKIN: Warm and dry. HEAD: Atraumatic. Normocephalic. EYES: Pupils equal and round. No scleral icterus. No injection or drainage. ENT: No nasal bleeding or discharge. Mucous membranes pink and moist. NECK: Trachea midline. CARDIOVASCULAR: Regular rate and rhythm. RESPIRATORY: No accessory muscle use. Clear to auscultation. Breath sounds equal bilaterally. GASTROINTESTINAL: Abdomen soft, nondistended. Epigastric tenderness and mild RUQ tenderness. Well healed laparoscopic incisions. Well healed midline incision. Sunburned. MUSCULOSKELETAL: Extremities without clubbing, cyanosis, or edema. No obvious deformities. NEUROLOGICAL: Awake and alert. No obvious cranial nerve deficits. Motor grossly within normal limits. Five out of 5 muscle strength in the arms and legs. Normal speech. PSYCHIATRIC: Appropriate mood and affect; insight and judgment normal. Laboratory Laboratory Tests Test 11/26/17 20:00 11/27/17 06:50 White Blood Count 5.2 3.4 Red Blood Count 4.78 3.96 Hemoglobin 12.5 10.3 Hematocrit 38.7 32.4 Mean Corpuscular Volume 80.9 81.9 Mean Corpuscular Hemoglobin 26.2 26.1 Mean Corpuscular Hemoglobin Concent 32.4 31.9 Red Cell Distribution Width 14.2 14.1 Platelet Count 186 138 Mean Platelet Volume 10.6 10.9 Neutrophils (%) (Auto) 77.1 60.4 Lymphocytes (%) (Auto) 11.7 20.4 Monocytes (%) (Auto) 8.7 15.6 Eosinophils (%) (Auto) 2.2 3.1 Basophils (%) (Auto) 0.3 0.5 Neutrophils # (Auto) 4.0 2.1 Lymphocytes # (Auto) 0.6 0.7 Monocytes # (Auto) 0.5 0.5 Eosinophils # (Auto) 0.1 0.1 Basophils # (Auto) 0.0 0.0 CBC Comment DIFF FINAL DIFF FINAL Differential Comment Prothrombin Time 10.2 Prothromb Time International Ratio 1.0 Activated Partial Thromboplast Time 21.5 Urine Color Dolores Urine Turbidity CLEAR Urine pH 5.0 Urine Specific [place] 1.027 Urine Protein 30 Urine Glucose (UA) NEG Urine Ketones NEG Urine Occult Blood LARGE Urine Nitrite NEG Urine Bilirubin MOD Urine Urobilinogen 4.0 OR GREATER Urine Leukocyte Esterase TRACE Urine RBC 169 Urine WBC 7 Urine Squamous Epithelial Cells 2 Urine Bacteria RARE Urine Mucus FEW Urine Yeast (Budding) RARE Microscopic Urinalysis Comment CULT NOT INDICATED Blood Urea Nitrogen 10 Creatinine 1.13 Random Glucose 89 Total Protein 7.5 Albumin 3.7 Calcium Level 9.1 Alkaline Phosphatase 248 Aspartate Amino Transf (AST/SGOT) 267 Alanine Aminotransferase (ALT/SGPT) 472 Total Bilirubin 4.1 Sodium Level 139 Potassium Level 3.7 Chloride Level 107 Carbon Dioxide Level 22.8 Anion Gap 9 Estimat Glomerular Filtration Rate 49 Lactic Acid Level 0.7 Lipase 205 Result Diagram: 11/27/17 0650 11/26/171999 Imaging Last 48 hours Impressions Gall Bladder Ultrasound 11/26/17 0000 Signed Impressions: CONCLUSION: 1. Examination positive for gallstones with gallbladder sludge and gallbladder wall thickening which has developed over the last 2 days. No evidence for chol edocholithiasis on ultrasound. Cholangiopancreatography MRI 11/26/17 0000 Signed Impressions: CONCLUSION: 1. Gallstones with no evidence of intra or extrahepatic biliary tree dilatatio n. Assessment and Plan Assessment and Plan 62 year old female with cholecystitis -Likely passed stone--- total bilirubin coming down now -NPO -Plan for OR this afternoon -Obtain consents -Explained procedure in detail and all questions answered -Thank you for this consult; We will continue to follow laparoscopic cholecystectomy; possible open procedure; possible intraoperative cholangiogram Discussed Condition With Nicolette Emanuel Ms./Lithographing Machine Operator WIL Nov 27, 2017 08:14
[2017-11-27] MEDS: SODIUM CHLORIDE 0.9% FLUSH 10 ML FLUSH IV FLUSH SCH ×2 (08:15→20:21)
[2017-11-27] MEDS: DOCUSATE SODIUM 50 MG/SENNA 8.6 MG TAB PO SCH ×2 (08:16→20:20)
[2017-11-27] MEDS: PANTOPRAZOLE SOD 40 MG DELAYED RELEASE TAB PO SCH (08:17)
[2017-11-27 08:22] LABS: ALBUMIN 2.7 GM/DL (3.4-5.0); ALKALINE PHOSPHATASE 192 U/L (45-117); ALT (GPT) 295 U/L (10-53); AST (GOT) 148 U/L (15-37); BICARBONATE 20.9 MEQ/L (21.0-32.0); BLOOD UREA NITROGEN 6 MG/DL (7-18); CHLORIDE 113 MEQ/L (98-107); CREATININE 0.75 MG/DL (0.50-1.00); GLOMERULAR FILTRATION RATE 79 ML/MIN (>89); GLUCOSE,RANDOM 85 MG/DL (74-106); SODIUM (NA) 144 MEQ/L (136-145); TOTAL BILIRUBIN ADULT 2.3 MG/DL (0.2-1.0); TOTAL PROTEIN 5.4 GM/DL (6.4-8.2)
--- NOTE | 2017-11-27 08:48 | PD.CONS ---
HPI History of Present Illness This is a 62 year old F with PMH significant for GERD, Anny's thyroiditis, lupus - in remission, hasn't had treatment in 15 years who presented to the ER yesterday with complaints of abdominal pain that has been intermittent for the past two days, worse after eating meals. Associated with nausea and vomiting, denies hematemesis and coffee ground emesis. States acid reflux has been well controlled with daily Omeprazole at home. Pts LFTs elevated on admission, however MRCP negative for intra and extrahepatic biliary tree dilatation and labs are trending down today. General surgery at bedside and planning on cholecystectomy this afternoon, no ERCP is indicated at this time. Also pt has history of Palmira-en Y gastric bypass so ERCP would not be possible at this facility. Pt reports last EGD and colonoscopy were 10 years ago and she believes both exams to be normal. (Ayah Ross) PFSH Past Medical History GERD, Anny's thyroiditis Lupus Past Surgical History Palmira-en Y gastric bypass EGD Colonoscopy Hysterectomy (Ayah Ross) Coded Allergies: No Known Allergies (Unverified , 11/26/17) Review of Systems Gastrointestinal: COMPLAINS OF: Abdominal pain, Nausea, Vomiting, DENIES: Black stools, Bloody stools, Constipation, Diarrhea, Difficulty Swallowing, Odynophagia, Swelling of Abdomen, Heartburn, Hematemesis (Ayah Ross) GI Exam Vitals I&O Vital Signs Date Time Temp Pulse Resp B/P (MAP) Pulse Ox O2 Delivery O2 Flow Rate FiO2 11/27/17 05:21 98.3 72 16 115/60 (78) 96 11/27/17 01:10 99.4 80 16 130/60 (83) 98 11/26/17 23:25 11/26/17 23:09 85 16 154/67 (96) 98 Room Air 11/26/17 21:24 16 11/26/17 17:30 99.5 79 16 140/64 (89) 99 Imaging Last Impressions Gall Bladder Ultrasound 11/26/17 0000 Signed Impressions: CONCLUSION: 1. Examination positive for gallstones with gallbladder sludge and gallbladder wall thickening which has developed over the last 2 days. No evidence for chol edocholithiasis on ultrasound. Cholangiopancreatography MRI 11/26/17 0000 Signed Impressions: CONCLUSION: 1. Gallstones with no evidence of intra or extrahepatic biliary tree dilatatio n. Laboratory Test 11/26/17 20:00 11/27/17 06:50 White Blood Count 5.2 TH/MM3 3.4 TH/MM3 Red Blood Count 4.78 MIL/MM3 3.96 MIL/MM3 Hemoglobin 12.5 GM/DL 10.3 GM/DL Hematocrit 38.7 % 32.4 % Mean Corpuscular Volume 80.9 FL 81.9 FL Mean Corpuscular Hemoglobin 26.2 PG 26.1 PG Mean Corpuscular Hemoglobin Concent 32.4 % 31.9 % Red Cell Distribution Width 14.2 % 14.1 % Platelet Count 186 TH/MM3 138 TH/MM3 Mean Platelet Volume 10.6 FL 10.9 FL Neutrophils (%) (Auto) 77.1 % 60.4 % Lymphocytes (%) (Auto) 11.7 % 20.4 % Monocytes (%) (Auto) 8.7 % 15.6 % Eosinophils (%) (Auto) 2.2 % 3.1 % Basophils (%) (Auto) 0.3 % 0.5 % Neutrophils # (Auto) 4.0 TH/MM3 2.1 TH/MM3 Lymphocytes # (Auto) 0.6 TH/MM3 0.7 TH/MM3 Monocytes # (Auto) 0.5 TH/MM3 0.5 TH/MM3 Eosinophils # (Auto) 0.1 TH/MM3 0.1 TH/MM3 Basophils # (Auto) 0.0 TH/MM3 0.0 TH/MM3 CBC Comment DIFF FINAL DIFF FINAL Differential Comment Prothrombin Time 10.2 SEC Prothromb Time International Ratio 1.0 RATIO Activated Partial Thromboplast Time 21.5 SEC Urine Color Dolores Urine Turbidity CLEAR Urine pH 5.0 Urine Specific [place] 1.027 Urine Protein 30 mg/dL Urine Glucose (UA) NEG mg/dL Urine Ketones NEG mg/dL Urine Occult Blood LARGE Urine Nitrite NEG Urine Bilirubin MOD Urine Urobilinogen 4.0 OR GREATER mg/dL Urine Leukocyte Esterase TRACE Urine RBC 169 /hpf Urine WBC 7 /hpf Urine Squamous Epithelial Cells 2 /hpf Urine Bacteria RARE /hpf Urine Mucus FEW /lpf Urine Yeast (Budding) RARE Microscopic Urinalysis Comment CULT NOT INDICATED Blood Urea Nitrogen 10 MG/DL 6 MG/DL Creatinine 1.13 MG/DL 0.75 MG/DL Random Glucose 89 MG/DL 85 MG/DL Total Protein 7.5 GM/DL 5.4 GM/DL Albumin 3.7 GM/DL 2.7 GM/DL Calcium Level 9.1 MG/DL 8.0 MG/DL Alkaline Phosphatase 248 U/L 192 U/L Aspartate Amino Transf (AST/SGOT) 267 U/L 148 U/L Alanine Aminotransferase (ALT/SGPT) 472 U/L 295 U/L Total Bilirubin 4.1 MG/DL 2.3 MG/DL Sodium Level 139 MEQ/L 144 MEQ/L Potassium Level 3.7 MEQ/L 3.3 MEQ/L Chloride Level 107 MEQ/L 113 MEQ/L Carbon Dioxide Level 22.8 MEQ/L 20.9 MEQ/L Anion Gap 9 MEQ/L 10 MEQ/L Estimat Glomerular Filtration Rate 49 ML/MIN 79 ML/MIN Lactic Acid Level 0.7 mmol/L Lipase 205 U/L Physical Examination HEENT: Normocephalic; atraumatic CHEST: Even/unlabored CARDIAC: RRR ABDOMEN: Soft, nondistended, upper abdominal tenderness, bowel sounds active EXTREMITIES: No clubbing, cyanosis, or edema. SKIN: Normal; no rash; no jaundice. [employer]QUEFIED NAT[employer] PLANT OPERATOR: Alert and oriented times three. (Ayah Ross [facility]) Assessment and Plan Plan Assessment: - Elevated LFTs T bili-4.1 AST-267 ALT-472 Alk phos-248 Pt denies history of liver issues except a liver laceration after Palmira-en Y gastric bypass years ago LFTs trending down today, seen by GS who is planning for cholecystectomy this afternoon. Labs are trending down today so likely stone has passed and imaging negative for choledocholithiasis, no ERCP indicated at this time. Also ERCP would not be possible at this facility given history of Palmira-en Y MRCP --> Gallstones with no evidence of intra or extrahepatic biliary tree dilatation. Gallbladder US --> Examination positive for gallstones with gallbladder sludge and gallbladder wall thickening which has developed over the last 2 days. No evidence for choledocholithiasis on ultrasound. Plan: GS planning on cholecystectomy today No ERCP indicated at this time, also not possible at this facility Our service will sign off, please reconsult as needed Pt has been seen and examined by myself and Dr. Huffman and this note is written on his behalf (Ayah Ross) Physician Comments Seen and examined with WIL, cholecystectomy planned for today with IOC. IF cholidocholithiasis will need PTC. MOnitor labs. GI will sign off, reconsult as needed. Thank you (Maldonado Huffman MD) Ayah Ross Nov 27, 2017 08:48 Maldonado Huffman MD Nov 27, 2017 17:15
[2017-11-27 08:52] VITALS: BP 138/64; PULSE 67; RESP 18; TEMP 97.3; O2SAT 97
[2017-11-27 12:29] VITALS: BP 139/65; PULSE 67; RESP 18; TEMP 98.8; O2SAT 97
--- NOTE | 2017-11-27 13:32 | HHI.FPPN ---
Subjective Remarks Patient was seen, examined and discussed with the medicine team. This morning, she is feeling much better. This is 62-year-old female with history of Palmira-en-Y gastric bypass for obesity. She ate a hamburger at a fast food restaurant and had significant GI upset thereafter. This was initially treated after 2 days of abdominal and epigastric pain and pain in the right upper quadrant as the chest pain center admission and was sent home on because her troponins were negative. Her pain persisted, and she presented to the emergency department on 618 for her pain. Ultrasound was done which showed a thickened gallbladder wall and stones. For history is positive for lupus which seems to have been in remission for a number of years, and Anny's thyroiditis for which she takes thyroid supplement. Please see H&P for this admission for additional historical details including past, family, social history and review of systems at the time of her initial admission. Objective Vitals Vital Signs Date Time Temp Pulse Resp B/P (MAP) Pulse Ox O2 Delivery O2 Flow Rate FiO2 11/27/17 12:29 98.8 67 18 139/65 (89) 97 11/27/17 10:57 18 11/27/17 08:52 97.3 67 18 138/64 (88) 97 11/27/17 05:21 98.3 72 16 115/60 (78) 96 11/27/17 01:10 99.4 80 16 130/60 (83) 98 11/26/17 23:25 11/26/17 23:09 85 16 154/67 (96) 98 Room Air 11/26/17 21:24 16 11/26/17 17:30 99.5 79 16 140/64 (89) 99 I/O 11/26/17 11/26/17 11/26/17 11/27/17 11/27/17 11/27/17 07:00 15:00 23:00 07:00 15:00 23:00 Intake Total 50 ml Balance 50 ml Intake IV Total 50 ml # Voids 1 Result Diagram: 11/27/17 0650 11/27/17 0650 Imaging Last Impressions Gall Bladder Ultrasound 11/26/17 0000 Signed Impressions: CONCLUSION: 1. Examination positive for gallstones with gallbladder sludge and gallbladder wall thickening which has developed over the last 2 days. No evidence for chol edocholithiasis on ultrasound. Cholangiopancreatography MRI 11/26/17 0000 Signed Impressions: CONCLUSION: 1. Gallstones with no evidence of intra or extrahepatic biliary tree dilatatio n. Objective Remarks O. CONSTITUTIONAL/GEN: normally nourished, in NAD. Sitting up in bed. EYES: conjunctiva normal, PERRLA, EOMI. no scleral icterus NECK: Supple LUNGS: clear A-P, respiratory effort is normal. CARDIOVASCULAR: RR without murmur or gallop. No significant edema. GI/ABD: soft without masses, without organomegaly. No tenderness to palpation today. Active bowel sounds NEURO: No focal deficits. SKIN: color normal, no rashes noted. HEME/LYMPH: no bruising, petechia or significant adenopathy MUSC: back is normal in appearance. Extremities are normal in appearance. PSYCH/MENTAL STATUS: Alert and oriented x 3. A/P Assessment and Plan 62 yo female with h/o gastric bypass, lupus in remission, and hypothyroidism presenting with: Discharge Planning Anticipate discharge home this afternoon or tomorrow depending on the type of cholecystectomy procedure that needs to be performed. Attending Attestation Patient seen, examined and discussed with the medicine team. I agree with the plan as documented. Problem List: (1) Cholecystitis ICD Codes: K81.9 - Cholecystitis, unspecified Status: Acute Plan: Clinical picture and ultrasound consistent with cholecystitis WBC wnl Associated mild transaminitis MRCP without biliary duct dilation UA with significant bilirubin consistent with biliary disease - Continue Zosyn Q6H cholecystectomy today consult surgery and gastroenterology (will likely need either cholecystecomy or ERCP; ER physician spoke to Dr. Mace who recommended GI consult) - Trend CMP - NPO for procedure. (2) Thyroiditis, chronic ICD Codes: E06.5 - Other chronic thyroiditis Status: Chronic Plan: Continue home Synthroid (3) FEN/PPX Plan: Fluids: NS at 125 cc/hr Elecs: Monitor, replete PRN Nutrition: NPO DVT: Lovenox Code status: Full code Dispo: Admit to inpatient, anticipate 2-3 day Gilda Harper MD Nov 27, 2017 13:32
[2017-11-27 16:48] VITALS: BP 119/56; PULSE 74; RESP 18; TEMP 99.3; O2SAT 99
--- NOTE | 2017-11-27 16:58 | EKG ---
Date Performed: 11/26/2017 Time Performed: 20:06:15 PTAGE: 62 years EKG: Sinus rhythm LOW QRS VOLTAGE IN PRECORDIAL LEADS BORDERLINE ECG PREVIOUS TRACING : 11/25/2017 00.25 Since the previous tracing, no significant change noted DOCTOR: Imelda Walton Interpretating Date/Time 11/27/2017 16:55:48
[2017-11-27] MEDS ORDERED: POTASSIUM CHLORIDE 20 MEQ CONTROLLED RELEASE TAB PO ONE (18:00)
[2017-11-27] MEDS: ONDANSETRON ODT 4 MG TAB PO PRN (20:20)
[2017-11-27 21:18] VITALS: BP 128/60; PULSE 98; RESP 16; TEMP 98.3; O2SAT 97
[2017-11-28 00:51] VITALS: BP 109/71; PULSE 62; RESP 16; TEMP 98.3; O2SAT 97
[2017-11-28] MEDS: PIPERACIL-TAZO 3.375 GM PREMIX 50 ML IV SCH ×4 (03:59→21:00)
[2017-11-28 04:18] VITALS: BP 120/56; PULSE 65; RESP 16; TEMP 97.9; O2SAT 97
[2017-11-28] MEDS: LEVOTHYROXINE SODIUM 100 MCG TAB PO SCH (05:50)
[2017-11-28] MEDS: SODIUM CHLOR 0.9% 1000 ML INJ 1,000 ML IV SCH ×3 (05:52→22:04)
[2017-11-28 07:53] LABS: ALBUMIN 2.5 GM/DL (3.4-5.0); ALKALINE PHOSPHATASE 196 U/L (45-117); ALT (GPT) 248 U/L (10-53); AST (GOT) 115 U/L (15-37); BLOOD UREA NITROGEN 4 MG/DL (7-18); CALCIUM 7.9 MG/DL (8.5-10.1); CHLORIDE 114 MEQ/L (98-107); CREATININE 0.74 MG/DL (0.50-1.00); GLOMERULAR FILTRATION RATE 80 ML/MIN (>89); GLUCOSE,RANDOM 88 MG/DL (74-106); SODIUM (NA) 148 MEQ/L (136-145); TOTAL BILIRUBIN ADULT 1.7 MG/DL (0.2-1.0)
[2017-11-28 08:00] VITALS: BP 142/69; PULSE 63; RESP 13; TEMP 98.7; O2SAT 97
[2017-11-28] MEDS: PANTOPRAZOLE SOD 40 MG DELAYED RELEASE TAB PO SCH (08:00)
[2017-11-28] MEDS: SODIUM CHLORIDE 0.9% FLUSH 10 ML FLUSH IV FLUSH SCH ×2 (08:00→19:57)
[2017-11-28] MEDS: DOCUSATE SODIUM 50 MG/SENNA 8.6 MG TAB PO SCH ×2 (08:00→19:57)
[2017-11-28 09:43] LABS: AUTOMATED NEUTROPHIL # 1.8 TH/MM3 (1.8-7.7); BASOPHIL % 0.4 % (0.0-2.0); EOSINOPHIL # 0.1 TH/MM3 (0-0.4); EOSINOPHIL % 4.5 % (0.0-4.0); HEMATOCRIT 33.5 % (35.0-46.0); HEMOGLOBIN 10.6 GM/DL (11.6-15.3); LYMPH % 18.2 % (9.0-44.0); LYMPHOCYTE # 0.6 TH/MM3 (1.0-4.8); MEAN CELL VOLUME 82.3 FL (80.0-100.0); MEAN CORPUSCULAR HEMOGLOBIN 26.1 PG (27.0-34.0); MEAN CORPUSCULAR HGB CONC 31.6 % (32.0-36.0); MEAN PLATELET VOLUME 10.7 FL (7.0-11.0); MONO % 18.4 % (0.0-8.0); MONOCYTE # 0.6 TH/MM3 (0-0.9); NEUT % 58.5 % (16.0-70.0); PLATELET COUNT 147 TH/MM3 (150-450); RED BLOOD COUNT 4.07 MIL/MM3 (4.00-5.30); RED CELL DISTRIBUTION WIDTH 14.3 % (11.6-17.2); WHITE BLOOD COUNT 3.1 TH/MM3 (4.0-11.0)
[2017-11-28] MEDS ORDERED: BUPIVACAINE/EPINEPHRINE 0.5% PF 30 ML VIAL ONE (10:49)
--- NOTE | 2017-11-28 10:58 | HHI.FPPN ---
Subjective Remarks Vitals stable overnight. Patient is doing well, is n.p.o. currently for cholecystectomy today. Denies any chest pain, shortness of breath. Pain in abdomen is improved. (Arlyn Vogt MD R1) Objective Vitals Vital Signs Date Time Temp Pulse Resp B/P (MAP) Pulse Ox O2 Delivery O2 Flow Rate FiO2 11/28/17 08:00 98.7 63 13 142/69 (93) 97 11/28/17 04:18 97.9 65 16 120/56 (77) 97 11/28/17 00:51 98.3 62 16 109/71 (84) 97 11/27/17 21:18 98.3 98 16 128/60 (82) 97 11/27/17 18:06 18 11/27/17 16:48 99.3 74 18 119/56 (77) 99 11/27/17 12:29 98.8 67 18 139/65 (89) 97 I/O 11/27/17 11/27/17 11/27/17 11/28/17 11/28/17 11/28/17 07:00 15:00 23:00 07:00 15:00 23:00 Intake Total 50 ml Balance 50 ml Intake IV Total 50 ml # Voids 1 1 (Arlyn Vogt MD R1) Result Diagram: 11/28/17 0910 11/28/17 0655 Objective Remarks O. CONSTITUTIONAL/GEN: normally nourished, in NAD. Sitting up in bed. EYES: conjunctiva normal, PERRLA, EOMI. no scleral icterus NECK: Supple LUNGS: clear A-P, respiratory effort is normal. CARDIOVASCULAR: RR without murmur or gallop. No significant edema. GI/ABD: soft without masses, without organomegaly. No tenderness to palpation. Decreased bowel sounds NEURO: No focal deficits. SKIN: color normal, no rashes noted. HEME/LYMPH: no bruising, petechia or significant adenopathy MUSC: back is normal in appearance. Extremities are normal in appearance. PSYCH/MENTAL STATUS: Alert and oriented x 3. (Arlyn Vogt MD R1) A/P Assessment and Plan 62 yo female with h/o gastric bypass, lupus in remission, and hypothyroidism presenting with: Discharge Planning Anticipate discharge after cholecystectomy procedure. Will await general surgery recommendations (Arlyn Vogt MD R1) Attending Attestation Patient seen and examined. Case reviewed and discussed with the resident team. Agree with plan of care as discussed with me and documented in the resident note. (Gilda Sauer MD) Problem List: (1) Cholecystitis ICD Codes: K81.9 - Cholecystitis, unspecified Status: Acute Plan: Clinical picture and ultrasound consistent with cholecystitis Associated mild transaminitis MRCP without biliary duct dilation UA with significant bilirubin consistent with biliary disease - NPO for procedure today -On day 2 IV Zosyn every 6 hours -Tonics 40 mg daily -On IV fluids maintenance -Morphine for pain control, has not requested since yesterday afternoon (2) Thyroiditis, chronic ICD Codes: E06.5 - Other chronic thyroiditis Status: Chronic Plan: Continue home Synthroid (3) Anemia ICD Codes: D64.9 - Anemia, unspecified Status: Acute Plan: Hemoglobin on admission 12.5 Hemoglobin 10.6 today, 10.3 yesterday May be dilutional due to it being associated with slightly decreased platelet count. ANC is above 18,000 therefore no neutropenia CBC daily to monitor May require further outpatient workup, plan to correlate clinically (4) FEN/PPX Plan: Fluids: NS at 125 cc/hr Elecs: Monitor, replete PRN Nutrition: NPO DVT: Lovenox Code status: Full code Dispo: Admit to inpatient, anticipate 2-3 day LOS (Arlyn Vogt MD R1) Problem Qualifiers (1) Anemia: Qualified Codes: D64.89 - Other specified anemias Arlyn Vogt MD R1 Nov 28, 2017 10:58 Gilda Sauer MD Nov 28, 2017 11:19
[2017-11-28] MEDS ORDERED: PROPOFOL 200 MG/20 ML AMP IV ONE (12:00)
[2017-11-28] MEDS ORDERED: LIDOCAINE HCL 1% PF 5 ML SYRINGE OTHER ONE (12:00)
[2017-11-28] MEDS ORDERED: DEXAMETHASONE SOD PHOS 4 MG/ML VIAL IV ONE (12:00)
[2017-11-28] MEDS ORDERED: GLYCOPYRROLATE 1 MG/5 ML SYRINGE IV PUSH ONE (12:00)
[2017-11-28] MEDS ORDERED: ONDANSETRON HCL 4 MG/2 ML VIAL IV ONE (12:00)
[2017-11-28] MEDS ORDERED: NEOSTIGMINE 5 MG/5 ML SYRINGE IV PUSH ONE (12:00)
[2017-11-28] MEDS ORDERED: ROCURONIUM INJ 50 MG/5 ML SYRINGE IV PUSH ONE (12:00)
[2017-11-28] MEDS ORDERED: KETOROLAC TROMETHAMINE 30 MG/ML (IVP) VIAL IV PUSH ONE (12:00)
[2017-11-28] MEDS ORDERED: DO NOT ADM ANY ANTICOAGULANT DRUGS PRN (13:01)
[2017-11-28] MEDS ORDERED: *PROMETHAZINE 25 MG/ML VIAL PERIprocedural use ONLY ONE (13:04)
[2017-11-28] MEDS ORDERED: *MEPERIDINE 25 MG INJ VIAL PERIprocedural Use ONLY ONE (13:13)
[2017-11-28] MEDS ORDERED: MIDAZOLAM HCL 2 MG/2 ML VIAL ONE (13:16)
[2017-11-28] MEDS ORDERED: *morphine SULFATE 8 MG/ML PERIprocedure ONLY ONE ×2 (13:27→13:33)
[2017-11-28] MEDS ORDERED: HYDROmorphone HCL PF 2 MG/ML VIAL ONE (13:56)
--- NOTE | 2017-11-28 14:01 | MP ---
cc: Saravanan Mace MD DATE OF OPERATION: PREOPERATIVE DIAGNOSES: 1. Acute cholecystitis. 2. Status post exploratory laparotomy for liver laceration secondary to complications during a laparoscopic gastric bypass. POSTOPERATIVE DIAGNOSIS: 1. Acute cholecystitis. 2. Status post exploratory laparotomy for liver laceration secondary to complications during a laparoscopic gastric bypass. PROCEDURE PERFORMED: Laparoscopic cholecystectomy. SURGEON: Saravanan Mace MD ANESTHESIA: General endotracheal. COMPLICATIONS: None. ESTIMATED BLOOD LOSS: 50 mL INDICATIONS FOR PROCEDURE: Ms. Cosme is a very pleasant 62-year-old female who presented with severe epigastric right upper quadrant abdominal pain. She was initially seen at the chest pain center, ruled out for an DE and sent home. Her right upper quadrant pain persisted. When she returned, she was noted to have significant elevation of her LFTs. She underwent MRCP, which showed no evidence of common duct stone and no ductal dilatation. Her LFTs gradually trended down. She was offered elective cholecystectomy. Initially, she was scheduled for yesterday, but there was no operating room time available, so she was rescheduled for today. Risks and benefits of the procedure were reviewed with her in detail and she was agreeable. DETAILS OF PROCEDURE: The patient was identified, brought to the operating room, placed supine on the operating table. After adequate general endotracheal anesthesia was achieved, the abdomen was prepped and draped in standard surgical fashion. Because the patient had a previous midline incision from her exploratory laparotomy, I elected to perform a right upper quadrant incision to gain entry to the abdominal cavity. A 0.25% Marcaine was injected in the skin and subcutaneous tissue in the subcostal region in the right upper quadrant. A transverse incision was made. Dissection was carried down through subcutaneous tissue to the anterior abdominal wall fascia. Anterior abdominal wall fascia was then incised transversely. The abdominal wall musculature was then spread along the course of its fibers. Peritoneum was then grasped, elevated, and divided sharply with scissors. The finger was then placed in the peritoneal cavity without difficulty. Blunt balloon trocar was inserted, and the abdomen was insufflated to 15 mmHg using CO2 gas. Next, a 30-degree laparoscope was inserted. The patient was noted to have a moderate amount of adhesions in the left upper quadrant from her previous gastric bypass and subsequent liver laceration. She had no midline adhesions. Therefore, a 5 mm trocar was placed in the supraumbilical region along the patient's previous incision. Once this was placed, an additional 5 mm trocar was placed in the subxiphoid region after anesthetizing the skin and subcutaneous tissue with 0.25% Marcaine. Attention was directed to the right upper quadrant where the patient was noted to have some omental adhesions wrapping up the gallbladder. These were carefully taken down with blunt and electrocautery dissection. Once we were able do this, we could identify the gallbladder, which was noted to be fairly edematous. Gallbladder was then retracted cephalad. Attention was then directed to the gallbladder dissection. The gallbladder was carefully dissected free from the omentum down to the level of the neck. At the level of the neck, the patient was noted to have some filmy adhesions between the gallbladder and the duodenum. These were taken down with sharp dissection, freeing up the neck of the gallbladder. The patient's cystic duct was noted to be fairly large, likely indicating the fact that she had probably passed many stones in the past. Her common bile duct was also clearly visualized. She had a very short thick cystic duct. Using meticulous dissection, the cystic duct was clearly dissected out and seen entering the neck of the gallbladder. The patient's cystic artery was clearly seen entering the neck of the gallbladder. Right hepatic artery was noted to course behind the cystic duct and back toward the liver. We therefore dissected the cystic artery away from the right hepatic artery and then clipped it twice proximally and once distally and then divided it. Once we did this, it freed the gallbladder up even more. As stated, the patient had a very short, wide cystic duct going directly into the common bile duct. The short segment was dissected out. A clip balloon pilot was brought in and the clips were seen to completely go across the cystic duct. Two clips were placed proximal right adjacent to the common duct and one was placed distal at the neck of the gallbladder. The cystic duct was then transected. No bile was noted to be spilling from either side and the clips appeared to be completely across. Next, the gallbladder neck was dissected up off the liver using electrocautery Bovie. Care was taken to identify and preserve the right hepatic artery, which coursed directly behind the neck of the gallbladder. Once we freed the neck of the gallbladder up, we were able to dissect the gallbladder out of the hepatic fossa using electrocautery Bovie. This was a very meticulous dissection due to the intense inflammatory nature of the patient's gallbladder. A few bleeding points in the liver were encountered and these were controlled with electrocautery Bovie. Once we freed the gallbladder off completely, we then placed it into the Endopouch bag in the right upper quadrant and brought it out. Gallbladder was inspected. No obvious stones were found. As expected, the gallbladder was clipped right on the neck at the cystic duct junction. There was no spillage of bile noted from the clip. Gallbladder was sent to pathology for analysis. Next, the liver bed was inspected. Several bleeding points were identified and these were controlled with electrocautery Bovie. Suction environmental aide was used to wash out the right upper quadrant until the effluent was noted to be clear. Liver bed was reinspected and found to be completely hemostatic. We again inspected the cystic artery and cystic duct clips and they were intact. There was no evidence of leakage of bile and no bleeding. 0.25% Marcaine was injected in the operative field. Omentum was then placed in the liver bed. All ports were then removed under direct vision. Anterior abdominal fascia was repaired with 0 Vicryl in a [id number] fashion. Skin was closed with 4-0 Vicryl. Please note, this case took an extra amount of time due to the patient's previous gastric bypass and subsequent liver laceration, her adhesions and the acute inflammatory nature of the gallbladder. We had to open up additional instrumentation, had to place an additional 5 mm port in order to safely perform the surgery laparoscopically. Saravanan MD NIXON Negro/SCAR , 01:36 PM , 01:59 PM
[2017-11-28 16:00] VITALS: BP 132/62; PULSE 76; RESP 16; TEMP 97.8; O2SAT 92
[2017-11-28] MEDS: KETOROLAC TROMETHAMINE 30 MG/ML (IVP) VIAL IV PUSH PRN (18:14)
[2017-11-28] MEDS: MORPHINE SULFATE 4 MG/ML INJ IV PUSH PRN ×2 (19:58→23:41)
[2017-11-28 20:00] VITALS: BP 148/66; PULSE 68; RESP 16; TEMP 98.5; O2SAT 95
[2017-11-28] MEDS: ONDANSETRON ODT 4 MG TAB PO PRN (20:03)
[2017-11-29] VITALS: BP 125/82; PULSE 71; RESP 18; TEMP 98.1; O2SAT 95
[2017-11-29] MEDS: KETOROLAC TROMETHAMINE 30 MG/ML (IVP) VIAL IV PUSH PRN ×2 (00:59→08:12)
[2017-11-29] MEDS: PIPERACIL-TAZO 3.375 GM PREMIX 50 ML IV SCH ×2 (02:44→08:12)
[2017-11-29] MEDS: LEVOTHYROXINE SODIUM 100 MCG TAB PO SCH (04:32)
[2017-11-29] MEDS: ONDANSETRON ODT 4 MG TAB PO PRN (04:32)
[2017-11-29] MEDS: MORPHINE SULFATE 4 MG/ML INJ IV PUSH PRN ×2 (04:33→10:09)
[2017-11-29] MEDS: SODIUM CHLOR 0.9% 1000 ML INJ 1,000 ML IV SCH ×2 (06:04→08:12)
[2017-11-29 08:00] VITALS: BP 156/67; PULSE 74; RESP 16; TEMP 98.2; O2SAT 95
[2017-11-29] MEDS: PANTOPRAZOLE SOD 40 MG DELAYED RELEASE TAB PO SCH (08:12)
[2017-11-29] MEDS: DOCUSATE SODIUM 50 MG/SENNA 8.6 MG TAB PO SCH (08:12)
[2017-11-29] MEDS: SODIUM CHLORIDE 0.9% FLUSH 10 ML FLUSH IV FLUSH SCH (08:18)
[2017-11-29 10:13] LABS: AUTOMATED NEUTROPHIL # 2.4 TH/MM3 (1.8-7.7); BASOPHIL % 0.3 % (0.0-2.0); EOSINOPHIL # 0.1 TH/MM3 (0-0.4); EOSINOPHIL % 2.9 % (0.0-4.0); HEMATOCRIT 33.6 % (35.0-46.0); HEMOGLOBIN 10.5 GM/DL (11.6-15.3); LYMPH % 27.8 % (9.0-44.0); LYMPHOCYTE # 1.2 TH/MM3 (1.0-4.8); MEAN CELL VOLUME 82.4 FL (80.0-100.0); MEAN CORPUSCULAR HEMOGLOBIN 25.8 PG (27.0-34.0); MEAN CORPUSCULAR HGB CONC 31.3 % (32.0-36.0); MEAN PLATELET VOLUME 10.4 FL (7.0-11.0); MONO % 12.8 % (0.0-8.0); MONOCYTE # 0.6 TH/MM3 (0-0.9); NEUT % 56.2 % (16.0-70.0); PLATELET COUNT 156 TH/MM3 (150-450); RED BLOOD COUNT 4.07 MIL/MM3 (4.00-5.30); RED CELL DISTRIBUTION WIDTH 14.7 % (11.6-17.2); WHITE BLOOD COUNT 4.4 TH/MM3 (4.0-11.0)
--- NOTE | 2017-11-29 10:30 | HHI.FPPN ---
Subjective Remarks Vitals stable overnight. Patient is anxious, worried about complications. She is consolable though. States that she has not been passing gas since before her surgery. No bowel movement since then either. Good appetite. Has been walking around. States she has not urinated very much since yesterday. Soreness at the sites of incision. Pain controlled. (Arlyn Vogt MD R1) Objective Vitals Vital Signs Date Time Temp Pulse Resp B/P (MAP) Pulse Ox O2 Delivery O2 Flow Rate FiO2 11/29/17 08:00 98.2 74 16 156/67 (96) 95 11/29/17 04:38 18 11/29/17 01:59 18 11/29/17 00:00 98.1 71 18 125/82 (96) 95 11/28/17 20:00 98.5 68 16 148/66 (93) 95 11/28/17 16:00 97.8 76 16 132/62 (85) 92 11/28/17 14:30 65 15 133/61 (85) 97 Room Air 11/28/17 14:00 63 12 122/56 (78) 93 Room Air 11/28/17 13:45 88 17 114/56 (75) 96 Room Air 11/28/17 13:30 65 14 122/57 (78) 95 Room Air 11/28/17 13:15 62 12 140/66 (90) 97 Room Air 11/28/17 13:03 98.8 65 13 137/58 (84) 100 Room Air I/O 11/28/17 11/28/17 11/28/17 11/29/17 11/29/17 11/29/17 07:00 15:00 23:00 07:00 15:00 23:00 Intake Total 800 ml 1530 ml 1050 ml Output Total 25 ml Balance 775 ml 1530 ml 1050 ml Intake Oral 480 ml IV Total 1050 ml 1050 ml Other 800 ml Output Estimated Blood Loss 25 ml # Voids 1 1 1 (Arlyn Vogt MD R1) Result Diagram: 11/29/17 0901 11/28/17 0655 Objective Remarks O. CONSTITUTIONAL/GEN: normally nourished, in NAD. Sitting up in bed. EYES: conjunctiva normal, PERRLA, EOMI. no scleral icterus NECK: Supple LUNGS: clear A-P, respiratory effort is normal. CARDIOVASCULAR: RR without murmur or gallop. No significant edema. GI/ABD: soft without masses, without organomegaly. No tenderness to palpation. +BS. Bandages at incision site clean, dry, and intact NEURO: No focal deficits. SKIN: color normal, no rashes noted. HEME/LYMPH: no bruising, petechia or significant adenopathy MUSC: Extremities are normal in appearance. PSYCH/MENTAL STATUS: Alert, anxious. Procedures Cholecystectomy 11/29/17 (Arlyn Vogt MD R1) A/P Assessment and Plan 62 yo female with h/o gastric bypass, lupus in remission, and hypothyroidism presenting with: Discharge Planning DC pending general surgery recommendation (Arlyn Vogt MD R1) Attending Attestation Patient seen and examined. Case reviewed and discussed with the resident team. Agree with plan of care as discussed with me and documented in the resident note. (Gilda Sauer MD) Problem List: (1) Cholecystitis ICD Codes: K81.9 - Cholecystitis, unspecified Status: Resolved Plan: Associated mild transaminitis and elevated bilirubin, non-septic S/P cholecystecomy POD 1 - DC'd Zosyn and IVF - Protonix 40 mg daily - Stool softeners - [facility] general surgery recs (2) Thyroiditis, chronic ICD Codes: E06.5 - Other chronic thyroiditis Status: Chronic Plan: Continue home Synthroid (3) Anemia ICD Codes: D64.9 - Anemia, unspecified Status: Acute Plan: Hemoglobin on admission 12.5 Hemoglobin stable since yesterday May be dilutional due to it being associated with slightly decreased platelet count. ANC is above 18,000 therefore no neutropenia May require further outpatient workup (4) FEN/PPX Plan: Fluids: PO Elecs: Monitor, replete PRN Nutrition: NPO DVT: Lovenox (Arlyn Vogt MD R1) Problem Qualifiers (1) Anemia: Qualified Codes: D64.89 - Other specified anemias Arlyn Vogt MD R1 Nov 29, 2017 10:30 Gilda Sauer MD Nov 29, 2017 15:21
[2017-11-29 10:49] LABS: ALBUMIN 2.7 GM/DL (3.4-5.0); ALKALINE PHOSPHATASE 218 U/L (45-117); ALT (GPT) 269 U/L (10-53); AST (GOT) 155 U/L (15-37); BLOOD UREA NITROGEN 6 MG/DL (7-18); CALCIUM 8.9 MG/DL (8.5-10.1); CHLORIDE 109 MEQ/L (98-107); CREATININE 0.87 MG/DL (0.50-1.00); GLOMERULAR FILTRATION RATE 66 ML/MIN (>89); GLUCOSE,RANDOM 92 MG/DL (74-106); SODIUM (NA) 142 MEQ/L (136-145); TOTAL BILIRUBIN ADULT 1.3 MG/DL (0.2-1.0); TOTAL PROTEIN 5.8 GM/DL (6.4-8.2)
[2017-11-29] MEDS ORDERED: ACETAMINOPHEN/HYDROcodone 325 MG/5 MG TAB PO PRN ×2 (11:45)
--- NOTE | 2017-11-29 11:45 | HHI.PR ---
Subjective Subjective Notes Resting in bed Wants to make sure labs look okay today Objective Vitals/I&O Vital Signs Date Time Temp Pulse Resp B/P (MAP) Pulse Ox O2 Delivery O2 Flow Rate FiO2 11/29/17 08:00 98.2 74 16 156/67 (96) 95 11/28/17 14:30 Room Air Labs Laboratory Tests Test 11/29/17 09:01 White Blood Count 4.4 Red Blood Count 4.07 Hemoglobin 10.5 Hematocrit 33.6 Mean Corpuscular Volume 82.4 Mean Corpuscular Hemoglobin 25.8 Mean Corpuscular Hemoglobin Concent 31.3 Red Cell Distribution Width 14.7 Platelet Count 156 Mean Platelet Volume 10.4 Neutrophils (%) (Auto) 56.2 Lymphocytes (%) (Auto) 27.8 Monocytes (%) (Auto) 12.8 Eosinophils (%) (Auto) 2.9 Basophils (%) (Auto) 0.3 Neutrophils # (Auto) 2.4 Lymphocytes # (Auto) 1.2 Monocytes # (Auto) 0.6 Eosinophils # (Auto) 0.1 Basophils # (Auto) 0.0 CBC Comment DIFF FINAL Differential Comment Blood Urea Nitrogen 6 Creatinine 0.87 Random Glucose 92 Total Protein 5.8 Albumin 2.7 Calcium Level 8.9 Alkaline Phosphatase 218 Aspartate Amino Transf (AST/SGOT) 155 Alanine Aminotransferase (ALT/SGPT) 269 Total Bilirubin 1.3 Sodium Level 142 Potassium Level 3.7 Chloride Level 109 Carbon Dioxide Level 22.0 Anion Gap 11 Estimat Glomerular Filtration Rate 66 Radiology Last 48 hours Impressions Gall Bladder Ultrasound 11/26/17 0000 Signed Impressions: CONCLUSION: 1. Examination positive for gallstones with gallbladder sludge and gallbladder wall thickening which has developed over the last 2 days. No evidence for chol edocholithiasis on ultrasound. Cholangiopancreatography MRI 11/26/17 0000 Signed Impressions: CONCLUSION: 1. Gallstones with no evidence of intra or extrahepatic biliary tree dilatatio n. Cardiovascular: Regular Lungs: Clear Abdomen: Other (lap sites c/d/i), Post-op tenderness Extremities: No edema A/P Assessment and Plan 62 year old female POD1 lap mitchel -Pain controlled -Milk of mag today -Renal function normal -Small increase in liver enzymes --- not unexpected Nicolette Saunders/Scratch Brusher ALIGNMENT SPECIALIST Nov 29, 2017 11:45
[2017-11-29 12:00] VITALS: BP 119/78; PULSE 85; RESP 17; TEMP 98.5; O2SAT 97
[2017-11-29] MEDS ORDERED: HYDR-3516 PO (12:24)
[2017-11-29] MEDS ORDERED: MAGNESIUM HYDROXIDE SUSP 30 ML CUP PO ONE (12:45)
--- NOTE | 2017-11-29 13:18 | HHI.DCPOC ---
Discharge Care Plan Diagnosis: (1) Cholecystitis Goals to Promote Your Health * To prevent worsening of your condition and complications * To maintain your health at the optimal level Directions to Meet Your Goals Take your medications as prescribed Follow your dietary instruction Follow activity as directed Keep your appointments as scheduled Take your immunizations and boosters as scheduled If your symptoms worsen call your PCP, if no PCP go to Urgent Care Center or Emergency Room Smoking is Dangerous to Your Health. Avoid second hand smoke Call the 24-hour hour crisis hotline for domestic abuse at Arlyn Vogt MD R1 Nov 29, 2017 13:18
== END 2017-11-29 14:31 | disposition home or self-care (01) | DRG 418 ==
LOC: NEPD 17:00 → NEDA 21:30 → NEPHCDU 23:27 → N07B 11-28 13:54
PROVIDERS: ADMIT Family Medicine; ATTEND Family Medicine
PROC: 0W3J4ZZ Control Bleeding in Pelvic Cavity, Percutaneous Endoscopic Approach (ICD-10-PCS; 2017-11-28)
PROC: 0FT44ZZ Resection of Gallbladder, Percutaneous Endoscopic Approach (ICD-10-PCS; principal; 2017-11-28 11:20)
DX: K80.62 Calculus of gallbladder and bile duct with acute cholecystitis without obstruction (principal); K91.71 Accidental puncture and laceration of a digestive system organ or structure during a digestive system procedure; K95.89 Other complications of other bariatric procedure; S36.113D Laceration of liver, unspecified degree, subsequent encounter; E06.3 Autoimmune thyroiditis; E07.9 Disorder of thyroid, unspecified; K21.9 Gastro-esophageal reflux disease without esophagitis; E06.5 Other chronic thyroiditis; M79.1 Myalgia; D64.9 Anemia, unspecified; R74.0 Nonspecific elevation of levels of transaminase and lactic acid dehydrogenase [LDH]; Z90.710 Acquired absence of both cervix and uterus; Z98.84 Bariatric surgery status; Z80.3 Family history of malignant neoplasm of breast
CPT/HCPCS: 74181; 76377; 76705; 80053; 81001; 83605; 83690; 85025; 85610; 85730; 88304; 93005; C9113; J1100; J1170; J1650; J1885; J2175; J2250; J2270; J2405; J2543; J2550; J2710; J2765; J3010; J7030

== ENCOUNTER 2018-04-24 06:51 | Observation (INO) ==
--- NOTE | 2018-04-24 07:17 | ED ---
HPI General Chief Complaint: Chest Pain Stated Complaint: Chest pains, left arm, shoulder pain, diff breath Time Seen by Provider: 04/24/18 06:59 Source: patient Mode of arrival: ambulatory Limitations: no limitations History of Present Illness HPI narrative: Patient is a 63-year-old female with history of hypertension and fibromyalgia, presents to the ER with complaint of chest pain. Patient reports that she woke up from sleep about 2 hours ago with chest pain. Patient reports that the chest pain is located substernally - reports that it radiates up to her left jaw as well as her left shoulder. Reports diaphoresis with nausea with her symptoms. Patient reports that she has never had pain like this in the past. Patient does not follow-up with a clinical trial manager, she has never had a heart attack, denies any history of coronary artery disease. She is a non smoker. Related Data Home Medications Medication Instructions Recorded Confirmed levothyroxine 100 mcg PO DAILY 12/08/17 04/24/18 omeprazole 40 mg PO DAILY 12/08/17 04/24/18 sertraline [Zoloft] 100 mg PO DAILY 04/24/18 04/24/18 Allergies Allergy/AdvReac Type Severity Reaction Status Date / Time No Known Allergies Allergy Verified 04/24/18 06:54 Review of Systems ROS: all other systems reviewed are negative PMFSH History History Provided By: Patient Medical History Medical History Back pain (Acute) Degenerative disc disease (Acute) H/O: hysterectomy (Acute) Anny's thyroiditis (Acute) Spinal stenosis (Acute) Surgical History Surgical History H/O breast augmentation (Acute) H/O gastric bypass (Acute) H/O knee surgery (Acute) Hx of cholecystectomy (Acute) Social History Social History Substance History: No History of Abuse Second Hand Smoke Exposure: No Smoking Status: Never smoker How Often Do You Have a Drink Containing Alcohol: 4 or more times a week Exam Narrative Exam Narrative: GENERAL: mild distress SKIN: Focused skin assessment warm/dry. HEAD: Atraumatic. Normocephalic. EYES: Pupils equal and round. No scleral icterus. No injection or drainage. ENT: No nasal bleeding or discharge. Mucous membranes pink and moist. NECK: Trachea midline. No JVD. CARDIOVASCULAR: Regular rate and rhythm. No murmur appreciated. RESPIRATORY: No accessory muscle use. Clear to auscultation. Breath sounds equal bilaterally. GASTROINTESTINAL: Abdomen soft, non-tender, nondistended. Hepatic and splenic margins not palpable. MUSCULOSKELETAL: No obvious deformities. No clubbing. No cyanosis. No edema. NEUROLOGICAL: Awake and alert. No obvious cranial nerve deficits. Motor grossly within normal limits. Normal speech. PSYCHIATRIC: Appropriate mood and affect; insight and judgment normal. Course Initial Documented Vital Signs Temperature 98.4 F 04/24/18 06:54 Pulse Rate 83 04/24/18 06:54 Respiratory Rate 16 04/24/18 06:54 Blood Pressure 171/81 H 04/24/18 06:54 Pulse Oximetry 98 04/24/18 06:54 Last Documented Vital Signs Temperature 98.4 F 04/24/18 06:54 Pulse Rate 80 04/24/18 07:18 Respiratory Rate 18 04/24/18 07:18 Blood Pressure 159/75 H 04/24/18 07:18 Pulse Oximetry 97 04/24/18 07:18 Medical Decision Making MDM Narrative Medical decision making narrative: During the course of the patients emergency department visit, the patients history, examination, and differential diagnosis were reviewed with the patient. The patient was placed on a user experience designer with oximetry and frequent blood pressure monitoring. The patient had an IV access obtained and blood work sent for analysis. The patient was initially provided sl nitro - she has already taken 2 baby asa prior to arrival to [facility] ER. The patients laboratory studies were reviewed and remarkable for: cbc: wnl bmp: sodium 139, chloride 108, bun 17, cr 1.08, glucose 104 trop less than 0.02, total ck 330, ckmb 2.3 Radiology studies were reviewed and remarkable for: chest xray: negative Patient with relief of chest pain after 1 sublingual nitroglycerin, plan to observe her in the chest pain unit. Medical Screen Exam Complete: Yes Emergency Medical Condition: Yes Differential Diagnosis Differential Diagnosis: acs, arrythmia, anxiety, pneumothorax Lab Data Lab results reviewed: Yes I reviewed the patient's lab results. Result diagrams: 04/24/18 07:25 04/24/18 07:25 Lab Results 04/24/18 04/24/18 04/24/18 Range/Units 07:25 07:25 07:25 WBC 5.3 (4.0-11.0) th/mm3 RBC 4.83 (4.00-5.30) mil/mm3 Hgb 13.0 (11.6-15.3) gm/dL Hct 40.4 (35.0-46.0) % MCV 83.7 (80.0-100.0) fL MCH 26.9 L (27.0-34.0) pg MCHC 32.1 (32.0-36.0) % RDW 14.7 (11.6-17.2) % Plt Count 218 (150-450) th/mm3 MPV 9.4 (7.0-11.0) fL Neut % (Auto) 57.7 (16.0-70.0) % Lymph % (Auto) 26.7 (9.0-44.0) % [place] % (Auto) 9.9 H (0.0-8.0) % Eos % (Auto) 5.3 H (0.0-4.0) % Baso % (Auto) 0.4 (0.0-2.0) % Neut # (Auto) 3.0 (1.8-7.7) th/mm3 Lymph # (Auto) 1.4 (1.0-4.8) th/mm3 [place] # (Auto) 0.5 (0.0-0.9) th/mm3 Eos # (Auto) 0.3 (0.0-0.4) th/mm3 Baso # (Auto) 0.0 (0.0-0.2) th/mm3 WBC Differential . Differential Comment Auto diff final PT 9.7 L (9.8-11.6) sec INR 1.0 Ratio APTT 25.2 (23.4-31.7) sec Sodium (136-145) meq/L Potassium (3.5-5.1) meq/L Chloride (98-107) meq/L Carbon Dioxide (21.0-32.0) meq/L Anion Gap (5-15) meq/L BUN (7-18) mg/dL Creatinine (0.50-1.00) mg/dL Estimated GFR (>89) mL/min Random Glucose (74-106) mg/dL Calcium (8.5-10.1) mg/dL Total Bilirubin (0.2-1.0) mg/dL AST (15-37) U/L ALT (10-53) U/L Alkaline Phosphatase (45-117) U/L Total Creatine Kinase (26-192) U/L CK-MB (CK-2) (0.5-3.6) ng/mL CK-MB (CK-2) % (0.0-4.0) % Troponin I (0.02-0.05) ng/mL B-Natriuretic Peptide 41 (0-100) pg/mL Total Protein (6.4-8.2) g/dL Albumin (3.4-5.0) g/dL 04/24/18 Range/Units 07:25 WBC (4.0-11.0) th/mm3 RBC (4.00-5.30) mil/mm3 Hgb (11.6-15.3) gm/dL Hct (35.0-46.0) % MCV (80.0-100.0) fL MCH (27.0-34.0) pg MCHC (32.0-36.0) % RDW (11.6-17.2) % Plt Count (150-450) th/mm3 MPV (7.0-11.0) fL Neut % (Auto) (16.0-70.0) % Lymph % (Auto) (9.0-44.0) % [place] % (Auto) (0.0-8.0) % Eos % (Auto) (0.0-4.0) % Baso % (Auto) (0.0-2.0) % Neut # (Auto) (1.8-7.7) th/mm3 Lymph # (Auto) (1.0-4.8) th/mm3 [place] # (Auto) (0.0-0.9) th/mm3 Eos # (Auto) (0.0-0.4) th/mm3 Baso # (Auto) (0.0-0.2) th/mm3 WBC Differential Differential Comment PT (9.8-11.6) sec INR Ratio APTT (23.4-31.7) sec Sodium 139 (136-145) meq/L Potassium 5.0 (3.5-5.1) meq/L Chloride 108 H (98-107) meq/L Carbon Dioxide 24.4 (21.0-32.0) meq/L Anion Gap 7 (5-15) meq/L BUN 17 (7-18) mg/dL Creatinine 1.08 H (0.50-1.00) mg/dL Estimated GFR 51 L (>89) mL/min Random Glucose 104 (74-106) mg/dL Calcium 8.4 L (8.5-10.1) mg/dL Total Bilirubin 0.3 (0.2-1.0) mg/dL AST 39 H (15-37) U/L ALT 38 (10-53) U/L Alkaline Phosphatase 105 (45-117) U/L Total Creatine Kinase 330 H (26-192) U/L CK-MB (CK-2) 2.3 (0.5-3.6) ng/mL CK-MB (CK-2) % 0.7 (0.0-4.0) % Troponin I Less than 0.02 L (0.02-0.05) ng/mL B-Natriuretic Peptide (0-100) pg/mL Total Protein 7.5 (6.4-8.2) g/dL Albumin 3.7 (3.4-5.0) g/dL Imaging Data Attestation: I personally reviewed and interpreted this imaging study as follows : Radiologist's impression: Chest X-Ray 04/24/18 07:09 CONCLUSION: Negative chest ECG Data EKG Prior to Arrival: Yes Attestation: I personally reviewed and interpreted this ECG as follows: Interpretation: EKG at 0706: NSR at 79bpm, qt/qtc: 395/430, no acute st or t wave changes Discharge Plan Discharge Disposition Patient Disposition: 30 Still Patient Discharge Condition Condition: Fair Discharge Details Diagnosis: Chest pain Physicians Team ED Provider: Susan Rubi Primary Care Provider: Cammie Christian Rxs /Orders / Referrals /Forms Prescriptions: No Action levothyroxine 100 mcg Tablet 100 mcg PO DAILY RF: 0 omeprazole 20 mg Tablet,Delayed Release (Dr/Ec) 40 mg PO DAILY RF: 0 sertraline [Zoloft] 100 mg Tablet 100 mg PO DAILY RF: 0 Discharge Instructions Patient Printed Instructions: Chest Pain (ED) Status ED Status: With Doctor
[2018-04-24 07:42] LABS: Baso % (Auto) 0.4 % (0.0-2.0); Eos # (Auto) 0.3 th/mm3 (0.0-0.4); Eos % (Auto) 5.3 % (0.0-4.0); Hematocrit 40.4 % (35.0-46.0); Lymph # (Auto) 1.4 th/mm3 (1.0-4.8); Lymph % (Auto) 26.7 % (9.0-44.0); Mean Corpuscular HGB Conc 32.1 % (32.0-36.0); Mean Corpuscular Hemoglobin 26.9 pg (27.0-34.0); Mean Corpuscular Volume 83.7 fL (80.0-100.0); Mean Platelet Volume 9.4 fL (7.0-11.0); Mono # (Auto) 0.5 th/mm3 (0.0-0.9); Mono % (Auto) 9.9 % (0.0-8.0); Neut % (Auto) 57.7 % (16.0-70.0); Platelet Count 218 th/mm3 (150-450); Red Blood Count 4.83 mil/mm3 (4.00-5.30); Red Cell Distribution Width 14.7 % (11.6-17.2); White Blood Count 5.3 th/mm3 (4.0-11.0)
--- NOTE | 2018-04-24 07:52 | XR ---
EXAM DATE: 04/24/2018 7:37 AM EST AGE/SEX: 63 years / Female INDICATIONS: Mid sternal chest pains with pressure. CLINICAL DATA: This is the patient's initial encounter. Patient reports that signs and symptoms have been present for 1 day and indicates a pain score of 5/10. MEDICAL/SURGICAL HISTORY: Hypertension. None. COMPARISON: [facility] [place] 1[place] SINGLE AP, 12/10/2017. . FINDINGS: A single AP view of the chest demonstrates the lungs to be symmetrically aerated without evidence of mass, infiltrate or effusion. The cardiomediastinal contours are unremarkable. Osseous structures a re intact. CONCLUSION: Negative chest Electronically signed by: Rob Duran MD 04/24/2018 7:50 AM EST
[2018-04-24 07:55] LABS: Activated Partial Thrombo Time 25.2 sec (23.4-31.7); Prothrombin Time 9.7 sec (9.8-11.6)
[2018-04-24 08:13] LABS: Alanine Aminotransferase 38 U/L (10-53); Albumin 3.7 g/dL (3.4-5.0); Alkaline Phosphatase 105 U/L (45-117); Anion Gap 7 meq/L (5-15); Aspartate Aminotransferase 39 U/L (15-37); Blood Urea Nitrogen 17 mg/dL (7-18); Calcium 8.4 mg/dL (8.5-10.1); Carbon Dioxide 24.4 meq/L (21.0-32.0); Chloride 108 meq/L (98-107); Creatine Kinase 330 U/L (26-192); Glomerular Filtration Rate 51 mL/min (>89); Glucose,Random 104 mg/dL (74-106); Sodium 139 meq/L (136-145); Total Protein 7.5 g/dL (6.4-8.2)
[2018-04-24 08:26] LABS: CKMB Percent 0.7 % (0.0-4.0); Creatine Kinase MB 2.3 ng/mL (0.5-3.6)
[2018-04-24] MEDS ORDERED: Acetaminophen 500 MG Tablet PO PRN (10:35)
--- NOTE | 2018-04-24 10:44 | P.HPCA ---
History of Present Illness Primary Care Physician: Cammie Christian MD Chief Complaint: Chest pain History of Present Illness: This is a 63-year-old female history of lupus, Anny's thyroiditis, fibromyalgia, spinal stenosis, laparoscopic cholecystectomy November 2017, history of gastric bypass presents to ED with complaint of chest discomfort. First episode began 2 evenings ago. It woke her up. Describes a central heaviness lasting 2 hours. She was short of breath and diaphoretic. Was a 6 out of 10. She took some baby aspirin and walked around and the discomfort resolved and she went back to sleep. Last night around 7 in the morning she was awoken again with a heaviness in the center of her chest and radiating towards her neck. She was diaphoretic and short of breath. Symptoms are still present about 8 hours later. Nothing really to worsen. She was given sublingual nitroglycerin in the ED which helped a little bit but is still present. She states it was tender when the ER doctor pressed on the area. She has had cardiac evaluation in the past and states she had a stress test about 10 years ago that was okay. Has never had a cardiac catheterization. Denies family history of coronary disease. She states a brother has valvular heart disease. Patient has history of lupus, Anny's thyroiditis, 5 myalgia, spinal stenosis, laparoscopic cholecystectomy November 2017 and gastric bypass. Denies hypertension, hyperlipidemia, diabetes, and known CAD. Denies family history of CAD. Brother has valvular heart disease. Lifetime non-smoker. - Diagnosis (1) Chest pain Review of Systems General: Patient denies fevers, chills, and recent travel. HEENT: Patient denies headache, sore throat, difficulty swallowing. Cardiovascular: Has the chest discomfort as mentioned above. Denies sensation of heart beating rapidly or irregularly. No syncope. She was diaphoretic. Respiratory: She was short of breath. Denies inspirational chest discomfort. Denies coughing wheezing or hemoptysis. GI: Patient denies nausea, vomiting, diarrhea, abdominal pain, bloody stools. Musculoskeletal: Patient denies joint pain or edema. Denies calf pain or edema. Neurovascular: Patient denies numbness, tingling, weakness in extremities. Denies headache. Endocrine: Denies polyuria and polydipsia. Hematologic: Denies easy bruising. Skin: Denies rash or itching. PMFSH - History History Provided By: Patient - Medical History Medical History: Medical History (Last Updated 04/24/18 @ 07:19 by Tiffani Echols) Back pain Degenerative disc disease H/O: hysterectomy Anny's thyroiditis Spinal stenosis - Surgical History Surgical History: Surgical History (Last Updated 04/24/18 @ 07:19 by Tiffani Echols) H/O breast augmentation H/O gastric bypass H/O knee surgery Hx of cholecystectomy - Tobacco History Second Hand Smoke Exposure: No Smoking Status: Never smoker - Alcohol History How Often Do You Have a Drink Containing Alcohol: 4 or more times a week - Substance Use History Substance History: No History of Abuse - Immunization History Tetanus Immunization: >5 Years Medications and Allergies Active Medications: Active Medications Acetaminophen (Tylenol) 500 mg PO Q6H PRN PRN Reason: pain scale 1-5 Hydrocodone Bitart/Acetaminophen ([place] 7.5/325) 1 tab PO Q6H PRN PRN Reason: pain scale 6-10 Aspirin (Aspirin) 325 mg PO DAILY JUAN R Clonidine HCl (Catapres) 0.1 mg PO Q6H PRN PRN Reason: SBP >165 OR DBP > 110 Ketorolac Tromethamine (Toradol Inj) 15 mg IV.PUSH ONCE ONE Stop: 04/24/18 10:36 Sodium Chloride (Ns Flush) 2 ml IV.FLUSH UNSCH PRN PRN Reason: FLUSH AFTER USING IV ACCESS Allergies Allergy/AdvReac Type Severity Reaction Status Date / Time No Known Allergies Allergy Verified 04/24/18 06:54 Home Medications Medication Instructions Recorded Confirmed Type levothyroxine 100 mcg PO DAILY 12/08/17 04/24/18 History omeprazole 40 mg PO DAILY 12/08/17 04/24/18 History sertraline [Zoloft] 100 mg PO DAILY 04/24/18 04/24/18 History Exam Vital signs: Vital Signs 04/24/18 06:54 04/24/18 07:18 Temperature 98.4 F Pulse Rate 83 80 Respiratory Rate 16 18 Blood Pressure 171/81 H 159/75 H Pulse Oximetry 98 97 Intake & Output 04/23/18 04/24/18 04/24/18 18:59 06:59 18:59 Weight 83.915 kg Narrative: GENERAL: This is a well-nourished, well-developed patient, in no apparent distress. Patient speaks in clear complete sentences. Patient is pleasant. HEENT: Head is atraumatic and normocephalic. Neck is supple without lymphadenopathy and trachea is midline. No JVD or carotid bruits. CARDIOVASCULAR: Grade 2 systolic murmur left sternal border. Regular rate and rhythm without gallops or rubs. RESPIRATORY: Clear to auscultation. Breath sounds equal bilaterally. No wheezes , rales, or rhonchi. Chest wall is tender and pressing on the area worsens the discomfort that brought her to the ED. No use of accessory muscles. GASTROINTESTINAL: Abdomen is nontender, nondistended. Abdomen soft. No obvious pulsatile mass or bruit. No CVA tenderness. Strong femoral pulses bilaterally. Normal bowel sounds in all quadrants. MUSCULOSKELETAL: Patient is moving upper and lower extremities freely. No calf tenderness or edema, no Homans sign. Strong pulses in upper and lower extremities. NEUROLOGICAL: Patient is alert and oriented. Cranial nerves 2-12 are grossly intact. No focal deficits and speech is clear. SKIN: No rash and turgor is normal. Results 04/24/18 07:25 04/24/18 07:25 Cardiac Enzymes 04/24/18 04/24/18 Range/Units 07:25 07:25 AST 39 H (15-37) U/L CK-MB (CK-2) 2.3 (0.5-3.6) ng/mL Troponin I Less than 0.02 L (0.02-0.05) ng/mL B-Natriuretic Peptide 41 (0-100) pg/mL Coagulation 04/24/18 04/24/18 Range/Units 07:25 07:25 PT 9.7 L (9.8-11.6) sec APTT 25.2 (23.4-31.7) sec B-Natriuretic Peptide 41 (0-100) pg/mL CBC 04/24/18 Range/Units 07:25 WBC 5.3 (4.0-11.0) th/mm3 RBC 4.83 (4.00-5.30) mil/mm3 Hgb 13.0 (11.6-15.3) gm/dL Hct 40.4 (35.0-46.0) % Plt Count 218 (150-450) th/mm3 Neut # (Auto) 3.0 (1.8-7.7) th/mm3 Lymph # (Auto) 1.4 (1.0-4.8) th/mm3 [place] # (Auto) 0.5 (0.0-0.9) th/mm3 Eos # (Auto) 0.3 (0.0-0.4) th/mm3 Baso # (Auto) 0.0 (0.0-0.2) th/mm3 Comprehensive Metabolic Panel 04/24/18 Range/Units 07:25 Sodium 139 (136-145) meq/L Potassium 5.0 (3.5-5.1) meq/L Chloride 108 H (98-107) meq/L Carbon Dioxide 24.4 (21.0-32.0) meq/L BUN 17 (7-18) mg/dL Creatinine 1.08 H (0.50-1.00) mg/dL Calcium 8.4 L (8.5-10.1) mg/dL AST 39 H (15-37) U/L ALT 38 (10-53) U/L Alkaline Phosphatase 105 (45-117) U/L Total Protein 7.5 (6.4-8.2) g/dL Albumin 3.7 (3.4-5.0) g/dL Intake and Output 04/23/18 04/24/18 04/24/18 22:59 06:59 14:59 Other: Weight 83.915 kg - Imaging and Cardiology Imaging: Impressions Chest X-Ray 04/24/18 07:09 CONCLUSION: Negative chest EKG interpretations - EKG EKG shows: sinus rhythm (Initial EKG is sinus rhythm without significant ST segment depressions or elevations.) Caprini VTE Risk Assessment Caprini VTE Risk Assessment: Moderate/High Risk (score >= 2) Caprini Risk Assessment Model: Point Value = 1 Point Value = 2 Point Value = 3 Point Value = 5 Age 41-60 Minor surgery BMI > 25 kg/m2 Swollen legs Varicose veins or History of unexplained or recurrent spontaneous Oral contraceptives or hormone replacement Sepsis (< 1 month) Serious lung disease, including pneumonia (< 1 month) Abnormal pulmonary function Acute myocardial infarction Congestive heart failure (< 1 month) History of inflammatory bowel disease Medical patient at bed rest Age 61-74 Arthroscopic surgery Major open surgery (> 45 min) Laparoscopic surgery (> 45 min) Malignancy Confined to bed (> 72 hours) Immobilizing plaster cast Central venous access Age >= 75 History of VTE Family history of VTE Factor V Leiden Prothrombin [id number] Lupus anticoagulant Anticardiolipin antibodies Elevated serum homocysteine Heparin-induced thrombocytopenia Other congenital or acquired thrombophilia Stroke (< 1 month) Elective arthroplasty Hip, pelvis, or leg fracture Acute spinal cord injury (< 1 month) Prophylaxis Regimen: Total Risk Factor Score Risk Level Prophylaxis Regimen 0-1 Low Early ambulation 2 Moderate Order ONE of the following: *Sequential Compression Device (SCD) *Heparin 5000 units SQ BID 3-4 Higher Order ONE of the following medications: *Heparin 5000 units SQ TID *Enoxaparin/Lovenox 40 mg SQ daily (WT < 150 kg, CrCl > 30 mL/min) *Enoxaparin/Lovenox 30 mg SQ daily (WT < 150 kg, CrCl > 10-29 mL/min) *Enoxaparin/Lovenox 30 mg SQ BID (WT < 150 kg, CrCl > 30 mL/min) AND/OR *Sequential Compression Device (SCD) 5 or more Highest Order ONE of the following medications: *Heparin 5000 units SQ TID (Preferred with Epidurals) *Enoxaparin/Lovenox 40 mg SQ daily (WT < 150 kg, CrCl > 30 mL/min) *Enoxaparin/Lovenox 30 mg SQ daily (WT < 150 kg, CrCl > 10-29 mL/min) *Enoxaparin/Lovenox 30 mg SQ BID (WT < 150 kg, CrCl > 30 mL/min) AND *Sequential Compression Device (SCD) Assessment and Plan - Assessment (1) Chest pain Code(s): R07.9 - Chest pain, unspecified Status: Acute - Plan * Chest pain: Patient has had first set of cardiac enzymes and EKGs for ruling out purposes. Will be seen by Dr. Ghulam Christian of cardiology and chest pain center. Will give a dose of Toradol as her chest wall was tender. Likely to proceed with Lexiscan and will be discharged home if stress test is nonischemic with instructions to follow-up with PCP. Return to ED for interval issues. She should resume all of her home medications. Patient is stable at this time. She is agreeable to this plan. (1) Chest pain Qualifiers: Chest pain type: unspecified Qualified Code(s): R07.9 - Chest pain, unspecified
[2018-04-24] MEDS ORDERED: Ketorolac Inj 30 MG/ML (IVP) Vial IV.PUSH ONE (10:50)
--- NOTE | 2018-04-24 11:37 | ECG ---
Date Performed: 04/24/2018 Time Performed: 07:06:31 PTAGE: 63 years EKG: Sinus rhythm NORMAL ECG INTERPRETATION BASED ON A DEFAULT AGE OF 40 YEARS PREVIOUS TRACING : 12/05/2017 12.04 DOCTOR: Heri Jones Interpretating Date/Time 04/24/2018 11:35:02
[2018-04-24 12:44] VITALS: BP 147/74; TEMP 98.5; O2SAT 96
[2018-04-24 13:02] LABS: Creatine Kinase 53 U/L (26-192)
[2018-04-24 13:09] VITALS: RESP 15
[2018-04-24 13:58] VITALS: PULSE 74
[2018-04-24] MEDS ORDERED: Regadenoson Inj 0.4 MG/5 ML Syringe IV.PUSH ONE (14:16)
--- NOTE | 2018-04-24 15:25 | NM ---
EXAM DATE: 04/24/2018 3:04 PM EST AGE/SEX: 63 years / Female INDICATIONS:Angina. . Substernal chest pain. CLINICAL DATA: This is the patient's initial encounter. Patient reports that signs and symptoms have been present for 1 day and indicates a pain score of 2/10. MEDICAL/SURGICAL HISTORY: Hyperthyroidism. Hysterectomy. Cholecystectomy. Gastric bypass. COMPARISON: No prior exams available for comparison. DOSE: 8.5 mCi Tc 99m Myoview at rest 25.4 mCi [id number] at stress 0.4 mg Lexiscan STRESS SYMPTOMS: Dyspnea. EJECTION FRACTION: 70 % TECHNIQUE: The patient underwent pharmacologic stress with infusion of prescribed dose. Continuous ECG tracing was monitored during stress. Gated SPECT imaging was performed after stress and conventi onal SPECT imaging was performed at rest. The examination was performed on a SPECT/CT scanner, both attenuation and non-corrected datasets were reviewed. FINDINGS: Distribution: The maximum perfused segment at stress is in the anterior septal region. Perfusion is better at stress than rest. Gated Study: There are intact wall motion and wall thickening without hypokinetic or dyskinetic segm ents. The ejection fraction is calculated at 70%. RISK CATEGORY: Low (<1% Annual Motality Rate) CONCLUSION: 1. Negative for stress-induced ischemia. Ejection fraction calculation 70%. Electronically signed by: Rob Duran MD 04/24/2018 3:24 PM EST
--- NOTE | 2018-04-24 15:30 | TR ---
Date Performed: 04/24/2018 Time Performed: 14:05:08 DOCTOR: Ghulam Christian DRUG LIST: CLINICAL HISTORY: REASON FOR TEST: REASON FOR ENDING: OBSERVATION: CONCLUSION: COMMENTS: Lexiscan stress test was performed under standard four minute protocol. Radionuclide was injected one minute prior to ending the test. No electrocardiographic abormalities were present t o suggest ischemia. Nuclear imaging and interpretation are pending.
[2018-04-24 16:39] LABS: Creatine Kinase 60 U/L (26-192)
[2018-04-25] MEDS ORDERED: Levothyroxine 100 MCG Tablet PO SCH (06:00)
[2018-04-25] MEDS ORDERED: Sertraline 100 MG Tablet PO SCH (09:00)
[2018-04-25] MEDS ORDERED: Aspirin 325 MG Tablet PO SCH (09:00)
--- NOTE | 2018-04-25 18:11 | ECG ---
Date Performed: 04/24/2018 Time Performed: 11:50:04 PTAGE: 63 years EKG: Sinus rhythm NORMAL ECG PREVIOUS TRACING : 04/24/2018 07.06 Since the previous tracing, no significant change noted DOCTOR: David Ramon Interpretating Date/Time 04/25/2018 18:10:13
== END 2018-04-24 16:04 | disposition home or self-care (01) ==
LOC: NEPE 06:51 → NEDA 06:51 → NEPGCP 12:02
PROVIDERS: ADMIT Internal Medicine Cardiovascular Disease; ATTEND Internal Medicine Cardiovascular Disease

== ENCOUNTER 2018-05-21 17:33 | Observation (INO) ==
[2018-05-21] MEDS ORDERED: Sod Chloride 0.9% Inj 1,000 ML IV.CONT SCH (19:00)
--- NOTE | 2018-05-21 19:09 | CT ---
EXAM DATE: 05/21/2018 7:05 PM EST AGE/SEX: 63 years / Female INDICATIONS: Stroke alert, left facial numbness and left lower extremity weakness. CLINICAL DATA: This is the patient's initial encounter. Patient reports that signs and symptoms have been present for 1 day and indicates a pain score of 0/10. MEDICAL/SURGICAL HISTORY: Non-responsive. Non-responsive. RADIATION DOSE: 35.53 CTDI (mGy) COMPARISON: [facility] – [place], [place] CEREBRAL PERF W CONTRAST W 3D, 05/21/2018. . TECHNIQUE: CT of the head without contrast. Using automated exposure control and adjustment of the mA and/or kV according to patient size, radiation dose was kept as low as reasonably achievable to ob tain optimal diagnostic quality images. DICOM format image data is available electronically for revi ew and comparison. FINDINGS: Cerebrum: The ventricles are normal for age. No evidence of midline shift, mass lesion, hemorrhage or acute infarction. No extraaxial fluid collections are seen. Posterior Fossa: The cerebellum and brainstem are intact. The 4th ventricle is midline. The cerebe llopontine angle is unremarkable. Extracranial: The visualized portion of the orbits is intact. Skull: The calvaria is intact. No evidence of skull fracture. CONCLUSION: 1. No acute intracranial abnormality. Report was called by [Dr Bentley to [facility]. ] Electronically signed by: Andrez Bentley MD 05/21/2018 7:08 PM EST
--- NOTE | 2018-05-21 19:12 | ED ---
HPI General Chief complaint: Chest Pain Stated complaint: BP Complaint Time Seen by Provider: 05/21/18 18:52 History of Present Illness HPI narrative: 63-year-old female with a history of hypertension, SLE, fibromyalgia, anxiety and depression is brought to the emergency department by EMS for evaluation of dizziness with paresthesias and weakness of the left arm and left leg. Patient states that this morning at 10 AM when she woke up she felt dizzy and off balance. States she also had paresthesias to the left side of her face around her eye since this morning. States that the symptoms have persisted throughout the day. States that at around noon she went to [facility] and checked her blood pressure and it was noted to be high around 190/100. Patient states that around 2 PM she started feeling weakness in her left arm and left leg as well as numbness and tingling in the left arm and left leg. States that the symptoms have persisted since then as well. She does admit to feeling anxious, states that her had a biopsy yesterday to determine whether he has cancer or not and this is causing her a lot of stress. She states that she ran out of her Prozac 2 days ago. States that she has also had soreness to her left anterior chest that began first thing this morning and has persisted all day, no aggravating or alleviating factors. States that she recently had a stress test that was unremarkable. She is also stating that she has urinated only once today, typically urinates frequently throughout the day. States she has been drinking fluids normally. Denies any other complaints. PCP Dr. Cammie Christian. Related Data Home Medications Medication Instructions Recorded Confirmed levothyroxine 100 mcg PO DAILY 12/08/17 05/21/18 omeprazole 40 mg PO DAILY 12/08/17 05/21/18 amlodipine 5 mg PO DAILY 05/21/18 05/21/18 fluoxetine [Prozac] 40 mg PO DAILY 05/21/18 05/21/18 gabapentin 300 mg PO DAILY 05/21/18 05/21/18 Allergies Allergy/AdvReac Type Severity Reaction Status Date / Time No Known Allergies Allergy Verified 04/24/18 06:54 Review of Systems ROS: all other systems reviewed are negative FOR[facility]LY [facility] Social History Social History Substance History: No History of Abuse Second Hand Smoke Exposure: No Smoking Status: Never smoker How Often Do You Have a Drink Containing Alcohol: Never Recent Travel in [facility] within the Last 8 Weeks: No Recent Out of Country Travel within the Last 8 Weeks: No Immunization History Tetanus Immunization: Unsure Exam Narrative Exam Narrative: GENERAL: Well-nourished and well-developed pleasant patient in no acute distress who is nontoxic appearing. SKIN: Warm and dry. HEAD: Normocephalic and atraumatic. EYES: No injection, drainage, or hyphema noted. PERRLA. EOMI. ENT: No nasal drainage noted. Oropharynx is clear and the TMs are normal with good landmarks. NECK: Supple and the trachea is midline. CARDIOVASCULAR: Regular rate and rhythm. RESPIRATORY: Breath sounds are equal bilaterally with no accessory muscle use, wheezing, rhonchi, or crackles. GASTROINTESTINAL: Abdomen is soft, non-tender, and nondistended. MUSCULOSKELETAL: No obvious deformities, swelling, cyanosis, or ecchymosis is present throughout the upper and lower extremities. Distal pulses are 2+ throughout. Strength upper extremities 5/5 and equal bilaterally. No drift of upper extremities. Strength 5/5 right lower extremity. Strength 3/5 left lower extremity with drift. NEUROLOGICAL: Awake, alert, and oriented. Normal speech and gait. Normal finger to nose testing. Normal heel to romero testing. Normal visual underwood by confrontation. Cranial nerves are grossly intact. Course Initial Documented Vital Signs Temperature 98.2 F 05/21/18 18:43 Pulse Rate 83 05/21/18 18:43 Respiratory Rate 18 05/21/18 18:43 Blood Pressure 173/79 H 05/21/18 18:43 Pulse Oximetry 100 05/21/18 18:43 Last Documented Vital Signs Temperature 98.2 F 05/21/18 18:43 Pulse Rate 78 05/21/18 19:37 Respiratory Rate 16 05/21/18 18:51 Blood Pressure 173/79 H 05/21/18 18:51 Pulse Oximetry 100 05/21/18 19:37 NIH Stroke Scale NIH Stroke Scale Level of Consciousness: 0-Alert Orientation Questions: 0-Answers both correct Responds to Commands: 0-Both tasks correct Gaze Eye Movement: 0-Horizontal movement WNL Visual Underwood: 0-No visual field defect Facial Movement: 0-Normal Motor Functions Arm LEFT: 0-No drift Motor Functions Arm RIGHT: 0-No drift Motor Functions Leg LEFT: 2-Falls before 5 seconds Motor Functions Leg RIGHT: 0-No drift Limb Ataxia: 0-No ataxia Sensory Loss: 1-Mild sensory loss Best Language: 0-Normal Articulation: 0-Normal Extinction or Inattention Sensory: 0-Absent Total: 3 Medical Decision Making ELVER Attestation ELVER supervised visit: Yes Attestation: I, Dr. Flores, have reviewed the advance practice practitioner's documentation and am in agreement, met with the patient face to face, made the diagnosis, and the medical decision making was done by me. The patient was initially evaluated by Angelina, the ELVER. Please see their complete history and physical. *My assessment and Findings: The patient presents with reported history of awakening at 6 AM with dizziness, and sensation of feeling intoxicated. The patient reports that later in the day she felt like her heart began to race. She went to a local pharmacy and checked her pulse and blood pressure. She reports that her blood pressure was noted to be high at 198/108. Ambulance services were then called. She reports that she did notice early in the day around 2 PM a sensation of numbness and tingling to the left upper and left lower extremity, left side of the face, and weakness of the left arm and left leg. She denies having any facial droop, double vision, vertigo, difficulty with word finding ability, or facial droop. The patient's his initial examination is remarked sensation on the left side of her body, weakness in the left lower extremity. A stroke alert was called upon the patient's initial arrival back into the room. The patient's blood sugar was noted to be 107. The patient had an EKG done on arrival that was a sinus rhythm. During the course of the patient's emergency department visit, the patient's history, examination, and differential diagnosis were reviewed with the patient. The patient was placed on a night monitor with oximetry and frequent blood pressure monitoring. The patient had IV access obtained and blood work sent for analysis. The patient's case was discussed with the neurologist on- call. Given the patient's onset of symptoms, the patient is not a candidate for TPA, however a CTA of the head and neck and CT perfusion have been ordered due to the vagueness of the exact time of onset of symptoms. The patient was initially provided normal saline at 70 mL/h. The patient was placed with the head of the bed flat. The patient's diagnostic studies were reviewed and remarkable for a white count of 5, hemoglobin 12.1, platelets 234 with 70.8 neutrophils, PT 10, PTT 25.8, fibrinogen is 247, chemistry is otherwise unremarkable, troponin I less than 0.02, CPK 96. The patient CT scan of the head, CTA of the head and neck, CT perfusion showed no acute abnormality. The patient was given aspirin 324 mg p.o. The patient reported feeling anxious was also given Ativan 0.5 mg IV. The patient will be admitted to the hospital for evaluation of possible TIA. The patient's results were discussed with the patient, including the plan of care. I explained that further testing and/ or monitoring is indicated based on the patient's history, examination, and/ or laboratory findings. Therefore, I recommended admission for additional evaluation. The patient expressed understanding and was agreeable with this plan. The patient was admitted to the hospital in guarded condition and sent to a bed under the care of service. MDM Narrative Medical decision making narrative: 63-year-old female is brought to the emergency department by EMS for evaluation of dizziness with left arm and leg weakness with paresthesias. Patient is afebrile, vital signs are stable. On physical examination the patient does have decreased sensation to the left arm, left leg and left side of her face. She also has weakness in the left leg with drift. Stroke alert was initiated. I spoke with neurologist Dr. Covington at 18:55 regarding patient's exam findings. He states since onset of symptoms was this morning when patient woke up approximately 10 am then she is no longer a TPA candidate. He does recommend CTA of head and neck if kidney function is appropriate. EKG shows sinus rhythm with no acute ST elevations or depressions. Head CT is negative. CBC is unremarkable. CMP is unremarkable. Troponin is less than 0.02. Head CTA is negative. Neck CTA is negative. CT cerebral perfusion is within normal limits. UA shows moderate blood but otherwise unremarkable. Patient reassessed after CT scans done. She now has increased strength in the left leg and is able to hold it up >5 seconds, strength is now 4/5 in left leg. She still has paresthesias in face, left arm and left leg. Patient complaining of significant anxiety and is administered ativan 0.5 mg IV. She is also administered aspirin 325 mg orally. Patient reassessed again at 21:15 and now has full strength in arms and legs equally. She reports her paresthesias in the left leg have resolved and the paresthesias in her right arm and face have improved. Patient states her anxiety has greatly improved with the medication as well. She will be admitted to observation for TIA. I discussed the case with my attending physician Dr. Flores who is aware of the patients history, physical examination findings, and treatment plan. Medical Screen Exam Complete: Yes Emergency Medical Condition: Yes Differential Diagnosis Differential Diagnosis: CVA versus TIA versus anxiety Lab Data Result diagrams: 05/21/18 19:00 Lab Results 05/21/18 05/21/18 05/21/18 Range/Units 18:56 19:00 19:00 WBC 5.0 (4.0-11.0) th/mm3 RBC 4.42 (4.00-5.30) mil/mm3 Hgb 12.1 (11.6-15.3) gm/dL POC Hgb (Calc) (11.6-15.3) g/dL Hct 37.4 (35.0-46.0) % POC Hct (35-46.0) % MCV 84.5 (80.0-100.0) fL MCH 27.3 (27.0-34.0) pg MCHC 32.3 (32.0-36.0) % RDW 15.3 (11.6-17.2) % Plt Count 234 (150-450) th/mm3 MPV 8.7 (7.0-11.0) fL Neut % (Auto) 70.8 H (16.0-70.0) % Lymph % (Auto) 18.0 (9.0-44.0) % Victoria % (Auto) 7.9 (0.0-8.0) % Eos % (Auto) 2.9 (0.0-4.0) % Baso % (Auto) 0.4 (0.0-2.0) % Neut # (Auto) 3.5 (1.8-7.7) th/mm3 Lymph # (Auto) 0.9 L (1.0-4.8) th/mm3 Victoria # (Auto) 0.4 (0.0-0.9) th/mm3 Eos # (Auto) 0.1 (0.0-0.4) th/mm3 Baso # (Auto) 0.0 (0.0-0.2) th/mm3 WBC Differential . Differential Comment Auto diff final PT 10.0 (9.8-11.6) sec INR 1.0 Ratio APTT 25.8 (23.4-31.7) sec Fibrinogen 247 (227-377) mg/dL POC Sodium (137-144) mmol/L POC Potassium (3.6-5.0) mmol/L POC Chloride (102-111) mmol/L POC BUN (5-21) mg/dL POC Creatinine (0.6-1.3) mg/dL POC Glucose (68-110) mg/dL Total Creatine Kinase (26-192) U/L Troponin I (0.02-0.05) ng/mL Urine Color (Yellw/Straw) Urine Clarity (Clear) Urine pH (5.0-8.5) Ur Specific [place] (1.002-1.035) Urine Protein (Neg-Trace) mg/dL Urine Glucose (UA) (Negative) mg/dL Urine Ketones (Negative) mg/dL Urine Occult Blood (Negative) Urine Nitrate (Negative) Urine Bilirubin (Negative) Urine Urobilinogen (Less than 2) mg/dL Ur Leukocyte Esterase (Negative) Urine RBC (0-3) /hpf Urine WBC (0-5) /hpf Ur Squamous Epith Cells (0-5) /hpf Micro UA Comment Ur Microscopic Review Urine Culture Comments Urine Opiates Screen (Neg) Ur Barbiturates Screen (Neg) Ur Amphetamines Screen (Neg) U Benzodiazepines Scrn (Neg) Urine Cocaine Screen (Neg) U Cannabinoids Screen (Neg) Blood Type O Positive Blood Type Recheck Required Antibody Screen Negative 05/21/18 05/21/18 05/21/18 Range/Units 19:00 19:45 19:45 WBC (4.0-11.0) th/mm3 RBC (4.00-5.30) mil/mm3 Hgb (11.6-15.3) gm/dL POC Hgb (Calc) 12.9 (11.6-15.3) g/dL Hct (35.0-46.0) % POC Hct 38.0 (35-46.0) % MCV (80.0-100.0) fL MCH (27.0-34.0) pg MCHC (32.0-36.0) % RDW (11.6-17.2) % Plt Count (150-450) th/mm3 MPV (7.0-11.0) fL Neut % (Auto) (16.0-70.0) % Lymph % (Auto) (9.0-44.0) % Victoria % (Auto) (0.0-8.0) % Eos % (Auto) (0.0-4.0) % Baso % (Auto) (0.0-2.0) % Neut # (Auto) (1.8-7.7) th/mm3 Lymph # (Auto) (1.0-4.8) th/mm3 Victoria # (Auto) (0.0-0.9) th/mm3 Eos # (Auto) (0.0-0.4) th/mm3 Baso # (Auto) (0.0-0.2) th/mm3 WBC Differential Differential Comment PT (9.8-11.6) sec INR Ratio APTT (23.4-31.7) sec Fibrinogen (227-377) mg/dL POC Sodium 143 (137-144) mmol/L POC Potassium 4.0 (3.6-5.0) mmol/L POC Chloride 107 (102-111) mmol/L POC BUN 13 (5-21) mg/dL POC Creatinine 0.9 (0.6-1.3) mg/dL POC Glucose 107 (68-110) mg/dL Total Creatine Kinase 96 (26-192) U/L Troponin I Less than 0.02 L (0.02-0.05) ng/mL Urine Color Yellow (Yellw/Straw) Urine Clarity Clear (Clear) Urine pH 5.0 (5.0-8.5) Ur Specific [place] 1.030 (1.002-1.035) Urine Protein Negative (Neg-Trace) mg/dL Urine Glucose (UA) Negative (Negative) mg/dL Urine Ketones Negative (Negative) mg/dL Urine Occult Blood Moderate H (Negative) Urine Nitrate Negative (Negative) Urine Bilirubin Negative (Negative) Urine Urobilinogen Less than 2 (Less than 2) mg/dL Ur Leukocyte Esterase Negative (Negative) Urine RBC 13 H (0-3) /hpf Urine WBC 1 (0-5) /hpf Ur Squamous Epith Cells 1 (0-5) /hpf Micro UA Comment Culture not ind Ur Microscopic Review Not Reportable Urine Culture Comments Culture not ind Urine Opiates Screen Neg (Neg) Ur Barbiturates Screen Neg (Neg) Ur Amphetamines Screen Neg (Neg) U Benzodiazepines Scrn Neg (Neg) Urine Cocaine Screen Neg (Neg) U Cannabinoids Screen Neg (Neg) Blood Type Blood Type Recheck Antibody Screen Imaging Data Radiologist's impression: Chest X-Ray 05/21/18 18:52 CONCLUSION: No acute cardiopulmonary disease Head CT 05/21/18 18:52 CONCLUSION: 1. No acute intracranial abnormality. Report was called by [Dr Bentley to [place]. ] Head CTA 05/21/18 18:52 CONCLUSION: 1. No large vessel stenosis, aneurysm or thrombosis. . Neck CTA 05/21/18 18:52 CONCLUSION: 1. Unremarkable CT of the neck. 2. Normal internal carotid arteries. CT CAD 05/21/18 18:58 CONCLUSION: Physiological brain perfusion parameters with RAPID analysis as above. The decision for consideration of therapy is multi factorial and multi disciplinary relying on subjective and objective clinical data. This data is not construed or intended to be the sole determinant of treatment eligibility. ECG Data Attestation: I personally reviewed and interpreted this ECG as follows: Interpretation: The patient had an EKG done on arrival. The patient's EKG reveals a sinus rhythm with a sinus arrhythmia heart rate is 77, QRS duration 81 ms, QTC 435 ms. T waves are inverted in V1, no acute ST segment elevation. Discharge Plan Discharge Disposition Patient Disposition: ED Admit(ED Internal Use Only) Discharge Details Diagnosis: TIA (transient ischemic attack) Physicians Team ED Provider: Morelia Flores ED Midlevel Provider: Angelina Fernando Primary Care Provider: Cammie Christian Rxs /Orders / Referrals /Forms Prescriptions: No Action levothyroxine 100 mcg Tablet 100 mcg PO DAILY RF: 0 omeprazole 20 mg Tablet,Delayed Release (Dr/Ec) 40 mg PO DAILY RF: 0 fluoxetine [Prozac] 40 mg Capsule 40 mg PO DAILY RF: 0 amlodipine 5 mg Tablet 5 mg PO DAILY RF: 0 gabapentin 100 mg Capsule 300 mg PO DAILY RF: 0 Discharge Instructions Patient Printed Instructions: Chest Pain (ED) Status ED Status: With Doctor
[2018-05-21 19:13] LABS: Baso % (Auto) 0.4 % (0.0-2.0); Eos # (Auto) 0.1 th/mm3 (0.0-0.4); Eos % (Auto) 2.9 % (0.0-4.0); Hematocrit 37.4 % (35.0-46.0); Hemoglobin 12.1 gm/dL (11.6-15.3); Lymph # (Auto) 0.9 th/mm3 (1.0-4.8); Mean Corpuscular HGB Conc 32.3 % (32.0-36.0); Mean Corpuscular Hemoglobin 27.3 pg (27.0-34.0); Mean Corpuscular Volume 84.5 fL (80.0-100.0); Mean Platelet Volume 8.7 fL (7.0-11.0); Mono # (Auto) 0.4 th/mm3 (0.0-0.9); Mono % (Auto) 7.9 % (0.0-8.0); Neut # (Auto) 3.5 th/mm3 (1.8-7.7); Neut % (Auto) 70.8 % (16.0-70.0); Platelet Count 234 th/mm3 (150-450); Red Blood Count 4.42 mil/mm3 (4.00-5.30); Red Cell Distribution Width 15.3 % (11.6-17.2)
[2018-05-21 19:23] LABS: Activated Partial Thrombo Time 25.8 sec (23.4-31.7)
--- NOTE | 2018-05-21 19:29 | XR ---
EXAM DATE: 05/21/2018 7:26 PM EST AGE/SEX: 63 years / Female INDICATIONS: Stroke alert. CLINICAL DATA: This is the patient's initial encounter. Patient reports that signs and symptoms have been present for 1 day and indicates a pain score of 0/10. MEDICAL/SURGICAL HISTORY: Hypertension. None. [place] [facility] [place]. . FINDINGS: A single AP view of the chest demonstrates the lungs to be symmetrically aerated without evidence of mass, infiltrate or effusion. The cardiomediastinal contours are unremarkable. Osseous structures a re intact. CONCLUSION: No acute cardiopulmonary disease Electronically signed by: Andrez Bentley MD 05/21/2018 7:27 PM EST
--- NOTE | 2018-05-21 19:35 | CT ---
EXAM DATE: 05/21/2018 7:27 PM EST AGE/SEX: 63 years / Female INDICATIONS: Stroke alert, left facial numbness and left lower extremity weakness. CLINICAL DATA: This is the patient's initial encounter. Patient reports that signs and symptoms have been present for 1 day and indicates a pain score of Nonresponsive. MEDICAL/SURGICAL HISTORY: Non-responsive. Non-responsive. RADIATION DOSE: 28.38 CTDI (mGy) ; Combined studies COMPARISON: [facility] – [place], [place] HEAD W/O CONTRAST, 05/21/2018. . TECHNIQUE: Volumetric scanning was performed using a multi-row detector CT scanner during bolus infu jefferson of 60 ml Visipaque 320 (iodixanol) nonionic water-soluble contrast as a cumulative dose for mul tiple exams. The data was post processed with a variety of visualization algorithms including full volume maximum intensity projection, multi-planar sliding thin slab reformation, curved planar reform ation, and surface rendering techniques. Using automated exposure control and adjustment of the mA a nd/or kV according to patient size, radiation dose was kept as low as reasonably achievable to obtain optimal diagnostic quality images. DICOM format image data is available electronically for review a nd comparison. FINDINGS: There is excellent visualization of the major intracranial arteries out to the second-order branch ve ssels. There is no evidence for aneurysm, vessel truncation or stenosis, and no evidence for vascula r malformation. Dominant right vertebral artery. There does appear to be an anterior communicating ar micaela. CONCLUSION: 1. No large vessel stenosis, aneurysm or thrombosis. . Electronically signed by: Andrez Bentley MD 05/21/2018 7:34 PM EST
[2018-05-21 19:36] LABS: Creatine Kinase 96 U/L (26-192)
--- NOTE | 2018-05-21 19:37 | CT ---
EXAM DATE: 05/21/2018 7:31 PM EST AGE/SEX: 63 years / Female INDICATIONS: Stroke alert, left facial numbness and left lower extremity weakness. CLINICAL DATA: This is the patient's initial encounter. Patient reports that signs and symptoms have been present for 1 day and indicates a pain score of Nonresponsive. MEDICAL/SURGICAL HISTORY: Non-responsive. Non-responsive. RADIATION DOSE: 28.38 CTDI (mGy) ; Combined studies COMPARISON: No prior exams available for comparison. TECHNIQUE: Volumetric scanning was performed using a multirow detector CT scanner during bolus infus ion of 60 ml Visipaque 320 (iodixanol) nonionic water-soluble contrast as a cumulative dose for mult iple exams. The data was postprocessed with a variety of visualization algorithms including full-vo lume maximum intensity projection, multiplanar sliding thin-slab reformation, curved-planar reformati on, and surface-rendering techniques. Using automated exposure control and adjustment of the mA and/ or kV according to patient size, radiation dose was kept as low as reasonably achievable to obtain op timal diagnostic quality images. DICOM format image data is available electronically for review and comparison. FINDINGS: Aortic Arch: There is a three-vessel origin of the great vessels from the aorta. No evidence of ost ial narrowing Right Carotid: The common carotid artery is intact. The carotid bulb has a normal configuration wit hout ulceration or narrowing. The internal carotid artery lumen is smooth without stenosis. The ext ernal carotid artery is intact. Left Carotid: The common carotid artery is intact. The carotid bulb has a normal configuration with out ulceration or narrowing. The internal carotid artery lumen is smooth without stenosis. The exte rnal carotid artery is intact. Vertebrals: The vertebral arteries have a symmetric diameter. No stenotic lesions are seen. Percent stenosis is calculated using the diameter of the stenotic region over the diameter of the nor mal distal internal carotid artery. CONCLUSION: 1. Unremarkable CT of the neck. 2. Normal internal carotid arteries. Electronically signed by: Andrez Bentley MD 05/21/2018 7:36 PM EST
--- NOTE | 2018-05-21 19:47 | CT ---
EXAM DATE: 05/21/2018 7:18 PM EST AGE/SEX: 63 years / Female INDICATIONS: Stroke alert, left facial numbness and left lower extremity weakness. CLINICAL DATA: This is the patient's initial encounter. Patient reports that signs and symptoms have been present for 1 day and indicates a pain score of Nonresponsive. MEDICAL/SURGICAL HISTORY: Non-responsive. Non-responsive. RADIATION DOSE: 314.22 CTDI (mGy) COMPARISON: No prior exams available for comparison. TECHNIQUE: CT of the head after intravenous administration of 40 ml Visipaque 320 (iodixanol) nonio nelda water-soluble contrast as a single exam dose. Using automated exposure control and adjustment of the mA and/or kV according to patient size, radiation dose was kept as low as reasonably achievable to obtain optimal diagnostic quality images. DICOM format image data is available electronically for review and comparison. FINDINGS: 1. CBF (<30%) Volume (ml): 0 2. Perfusion (Tmax>6.0s) Volume (ml): 0 3. Mismatch Volume (ml) (Tmax>6.0 - CBF): 0 CONCLUSION: Physiological brain perfusion parameters with RAPID analysis as above. The decision for consideration of therapy is multi factorial and multi disciplinary relying on subjec tive and objective clinical data. This data is not construed or intended to be the sole determinant of treatment eligibility. Electronically signed by: Kirill Guerra MD 05/21/2018 7:45 PM EST
[2018-05-21 20:38] LABS: Bilirubin,Urine Negative (Negative); Clarity,Urine Clear (Clear); Color,Urine Yellow (Yellw/Straw); Glucose,Urine (UA) Negative (Negative); Leukocyte Esterase,Urine Negative (Negative); Nitrite,Urine Negative (Negative); Squamous Epithelial Cell,Urine 1 /hpf (0-5)
[2018-05-21 20:41] LABS: Amphetamine Screen,Urine Neg (Neg); Barbiturate Screen,Urine Neg (Neg); Cannabinoid Screen,Urine Neg (Neg); Cocaine Screen,Urine Neg (Neg)
[2018-05-21 20:42] LABS: Opiate Screen,Urine Neg (Neg)
--- NOTE | 2018-05-21 21:58 | P.HPFP ---
History of Present Illness Primary Care Physician: Cammie Christian MD <Tegan Kasper R - 05/23/18 09:30> Cammie Christian MD <Andre Garcia - 05/21/18 21:58> Chief Complaint: Left sided weakness <Andre Garcia - 05/21/18 22:40> History of Present Illness: Patient is a 63 yo Female with significant PMHx of HTN, anxiety, panic attacks, SLE and Anny's thyroiditis presented to ED via EMS due to left facial and extremity weakness and blurry vision that started today around 3:30 PM in the setting of increased blood pressure. Patient reports that this morning she woke up and felt dizzy and confused. She was confused about day and time. Denies being confused about her location or self. She also reports that she felt her heart beating fast during this time. She later checked her blood pressure at a nearby [facility] and it was 198/108. She was able to ambulate but it felt "weird". She also reports she had mild shortness of breath however that improved when she stepped outside to get some fresh air. Denies slurred speech, seizure activity, similar events in the past, fever, chills, nuno, n/v, or dysuria. She also reports decreased urine output (urinated once at home and twice in the ED). Her left-sided weakness started around 1 PM however symptoms worsened around 3:30 PM and she decided to call the ambulance. Currently patient reports that all her symptoms have resolved except for mild left-sided weakness however this is improved from when she initially came to the ED. She reports that her panic attacks do not present in this manner. Endorses normal appetite and fluid intake. In the ED patient receive 1 dose of aspirin and multiple images were done that were negative for acute stroke (CTA neck and head, CT head, CT CAD) and neurology was consulted. Patient was out of the window for TPA. Of note patient has been out of Prozac for the past 2 days. Allergies: None Past medical history: panic attack, last panic attack was 2 wks ago SLE Fibromyalgia spinal stenosis herniated disc Anny's thyroiditis Past surgical history: gastric bypass cholecystectomy Social history: Patient lives with her Denies smoking or illicit drug use alcohol: Rarely <Andre Garcia 05/22/18 02:41> - Diagnosis (1) TIA (transient ischemic attack) (2) Hypertension (3) H/O Anny thyroiditis (4) Depression (5) Nutrition, metabolism, and development symptoms <Tegan Kasper 05/23/18 09:30> (1) TIA (transient ischemic attack) (2) Hypertension (3) H/O Anny thyroiditis (4) Depression (5) Nutrition, metabolism, and development symptoms <Andre Garcia 05/22/18 02:42> Review of Systems All other systems reviewed negative except as stated in HPI <Andre Garcia 05/22/18 02:41> PMFSH - History History Provided By: Patient <Andre Garcia 05/21/18 21:58> - Medical History Medical History: Medical History (Last Reviewed 05/21/18 @ 18:45 by Shoaib Thomas) Back pain Degenerative disc disease H/O: hysterectomy Anny's thyroiditis Spinal stenosis <Tegan Kasper 05/23/18 09:30> Medical History (Last Reviewed 05/21/18 @ 18:45 by Shoaib Thomas) Back pain Degenerative disc disease H/O: hysterectomy Anny's thyroiditis Spinal stenosis <Andre Garcia 05/21/18 21:58> - Surgical History Surgical History: Surgical History (Last Reviewed 05/21/18 @ 18:45 by Shoaib Thomas) H/O breast augmentation H/O gastric bypass H/O knee surgery Hx of cholecystectomy <Tegan Kasper 05/23/18 09:30> Surgical History (Last Reviewed 05/21/18 @ 18:45 by Shoaib Thomas) H/O breast augmentation H/O gastric bypass H/O knee surgery Hx of cholecystectomy <Andre Garcia 05/21/18 21:58> - Tobacco History Second Hand Smoke Exposure: No <Andre Garcia 05/21/18 21:58> Smoking Status: Never smoker <Andre Garcia 05/21/18 21:58> - Alcohol History How Often Do You Have a Drink Containing Alcohol: Never <Andre Garcia 04/28 21:58> - Substance Use History Substance History: No History of Abuse <Andre Garcia Angella - 05/21/18 21:58> - Travel History Recent Travel in the [place] Within the Last 8 Weeks: No <AvelchristoferAndre Angella - 21:58> Recent Travel Out of the Country Within the Last 8 Weeks: No <RadhaAndre Angella - 05/21/18 21:58> - Immunization History Tetanus Immunization: Unsure <AvelshashiAndre Perales 05/21/18 21:58> Medications and Allergies Allergies Allergy/AdvReac Type Severity Reaction Status Date / Time No Known Allergies Allergy Verified 04/24/18 06:54 <Tegan Kasper - 05/23/18 09:30> Home Medications Medication Instructions Recorded Confirmed Type levothyroxine 100 mcg PO DAILY 12/08/17 05/21/18 History omeprazole 40 mg PO DAILY 12/08/17 05/21/18 History fluoxetine [Prozac] 40 mg PO DAILY 05/21/18 05/21/18 History gabapentin 300 mg PO DAILY 05/21/18 05/21/18 History <Tegan Kasper - 05/23/18 09:30> Active Medications: Active Medications Sodium Chloride (Ns Inj) 1,000 mls @ 70 mls/hr IV.CONT .[id number] [facility] Last Admin: 05/21/18 19:54 Dose: 70 mls/hr <RadhaAndre D - 05/21/18 21:58> Exam Vital signs: Vital Signs 05/22/18 11:47 Temperature 98.9 F Pulse Rate 77 Respiratory Rate 16 Blood Pressure 137/67 Pulse Oximetry 99 Intake & Output 05/22/18 05/23/18 05/23/18 18:59 06:59 18:59 Intake Total 400 / 400 Balance 400 / 400 Intake: IV 400 / 400 NS Inj 1,000 ML @ 70 mls/hr IV. 400 / 400 CONT .[id number] [facility] Rx#:[id number] Other: Date of Last Bowel Movement 05/21/18 <Tegan Kasper 05/23/18 09:30> Vital Signs 05/21/18 18:43 05/21/18 18:51 05/21/18 19:37 Temperature 98.2 F Pulse Rate 83 81 78 Respiratory Rate 18 16 Blood Pressure 173/79 H 173/79 H Pulse Oximetry 100 99 100 Intake & Output 05/21/18 05/21/18 05/22/18 06:59 18:59 06:59 Weight 72.575 kg <Andre Garcia 05/21/18 21:58> - Constitutional no acute distress <Andre Garcia 05/22/18 02:41> - Routine HEENT Exam Head: Present: normocephalic <Andre Garcia 05/22/18 02:41> Eye: Present: EOMI, PERRL <Andre Garcia 05/22/18 02:41> ENT: Present: mucous membranes moist <Andre Garcia 05/22/18 02:41> - Routine Neck Exam Present: supple, full ROM. Absent: JVD <Andre Garcia 05/22/18 02:41> - Routine Chest/Breast/Axilla Exam Chest wall: Absent: tenderness <Andre Garcia 05/22/18 02:41> - Routine Respiratory Exam Present: CTA bilaterally. Absent: accessory muscle use, wheezes, crackles < Andre Garcia 05/22/18 02:41> - Routine Cardiovascular Exam Present: RRR, S1, S2. Absent: murmur, gallop, rubs <Andre Garcia 02:41> - Routine Abdominal Exam Present: soft, normoactive bowel sounds. Absent: tenderness, distended, rebound , guarding <Andre Garcia 05/22/18 02:41> - Routine Extremities Exam Present: full ROM, pulses intact, normal capillary refill. Absent: cyanosis, clubbing, edema, calf tenderness <Andre Garcia 05/22/18 02:41> - Routine Skin Exam Present: intact <Andre Garcia [facility] 05/22/18 02:41> - Routine Neurological Exam Present: alert, oriented X3, CN II-XII intact, normal reflexes, moving all extremities, vision grossly intact, hearing grossly intact. Absent: sensory deficit, motor deficit, pronator drift, altered mental status, hemineglect < Andre Garcia - 05/22/18 02:41> Results - Labs Result diagrams: 05/22/18 05:54 05/22/18 03:52 <Tegan Kasper - 05/23/18 09:30> Abnormal lab results 05/21/18 05/21/18 05/21/18 Range/Units 19:00 19:00 19:45 Neut % (Auto) 70.8 H (16.0-70.0) % Lymph # (Auto) 0.9 L (1.0-4.8) th/mm3 Troponin I Less than 0.02 L (0.02-0.05) ng/mL Urine Occult Blood Moderate H (Negative) Urine RBC 13 H (0-3) /hpf Short CBC 05/21/18 Range/Units 19:00 WBC 5.0 (4.0-11.0) th/mm3 Hgb 12.1 (11.6-15.3) gm/dL Hct 37.4 (35.0-46.0) % Plt Count 234 (150-450) th/mm3 Cardiac Enzymes 05/21/18 Range/Units 19:00 Total Creatine Kinase 96 (26-192) U/L Troponin I Less than 0.02 L (0.02-0.05) ng/mL Urine 05/21/18 Range/Units 19:45 Urine Color Yellow (Yellw/Straw) Urine Clarity Clear (Clear) Urine pH 5.0 (5.0-8.5) Ur Specific [place] 1.030 (1.002-1.035) Urine Protein Negative (Neg-Trace) mg/dL Urine Glucose (UA) Negative (Negative) mg/dL <Andre Garcia - 05/21/18 21:58> - Imaging Impressions Head MRI 05/22/18 00:00 CONCLUSION: 1. Negative MRI of the brain. <Tegan Kasper - 05/23/18 09:30> Impressions Chest X-Ray 05/21/18 18:52 CONCLUSION: No acute cardiopulmonary disease Head CT 05/21/18 18:52 CONCLUSION: 1. No acute intracranial abnormality. Report was called by [Dr Bentley to [place]. ] Head CTA 05/21/18 18:52 CONCLUSION: 1. No large vessel stenosis, aneurysm or thrombosis. . Neck CTA 05/21/18 18:52 CONCLUSION: 1. Unremarkable CT of the neck. 2. Normal internal carotid arteries. CT CAD 05/21/18 18:58 CONCLUSION: Physiological brain perfusion parameters with RAPID analysis as above. The decision for consideration of therapy is multi factorial and multi disciplinary relying on subjective and objective clinical data. This data is not construed or intended to be the sole determinant of treatment eligibility. <Andre Garcia D - 05/21/18 21:58> Caprini VTE Risk Assessment Caprini VTE Risk Assessment: Moderate/High Risk (score >= 2) <Andre Garcia - 05/22/18 02:41> Caprini Risk Assessment Model: Point Value = 1 Point Value = 2 Point Value = 3 Point Value = 5 Age 41-60 Minor surgery BMI > 25 kg/m2 Swollen legs Varicose veins or History of unexplained or recurrent spontaneous Oral contraceptives or hormone replacement Sepsis (< 1 month) Serious lung disease, including pneumonia (< 1 month) Abnormal pulmonary function Acute myocardial infarction Congestive heart failure (< 1 month) History of inflammatory bowel disease Medical patient at bed rest Age 61-74 Arthroscopic surgery Major open surgery (> 45 min) Laparoscopic surgery (> 45 min) Malignancy Confined to bed (> 72 hours) Immobilizing plaster cast Central venous access Age >= 75 History of VTE Family history of VTE Factor V Leiden Prothrombin [id number] Lupus anticoagulant Anticardiolipin antibodies Elevated serum homocysteine Heparin-induced thrombocytopenia Other congenital or acquired thrombophilia Stroke (< 1 month) Elective arthroplasty Hip, pelvis, or leg fracture Acute spinal cord injury (< 1 month) <Tegan Kasper - 05/23/18 09:30> Point Value = 1 Point Value = 2 Point Value = 3 Point Value = 5 Age 41-60 Minor surgery BMI > 25 kg/m2 Swollen legs Varicose veins or History of unexplained or recurrent spontaneous Oral contraceptives or hormone replacement Sepsis (< 1 month) Serious lung disease, including pneumonia (< 1 month) Abnormal pulmonary function Acute myocardial infarction Congestive heart failure (< 1 month) History of inflammatory bowel disease Medical patient at bed rest Age 61-74 Arthroscopic surgery Major open surgery (> 45 min) Laparoscopic surgery (> 45 min) Malignancy Confined to bed (> 72 hours) Immobilizing plaster cast Central venous access Age >= 75 History of VTE Family history of VTE Factor V Leiden Prothrombin 38818O Lupus anticoagulant Anticardiolipin antibodies Elevated serum homocysteine Heparin-induced thrombocytopenia Other congenital or acquired thrombophilia Stroke (< 1 month) Elective arthroplasty Hip, pelvis, or leg fracture Acute spinal cord injury (< 1 month) <Andre Garcia D - 05/22/18 02:41> Prophylaxis Regimen: Total Risk Factor Score Risk Level Prophylaxis Regimen 0-1 Low Early ambulation 2 Moderate Order ONE of the following: *Sequential Compression Device (SCD) *Heparin 5000 units SQ BID 3-4 Higher Order ONE of the following medications: *Heparin 5000 units SQ TID *Enoxaparin/Lovenox 40 mg SQ daily (WT < 150 kg, CrCl > 30 mL/min) *Enoxaparin/Lovenox 30 mg SQ daily (WT < 150 kg, CrCl > 10-29 mL/min) *Enoxaparin/Lovenox 30 mg SQ BID (WT < 150 kg, CrCl > 30 mL/min) AND/OR *Sequential Compression Device (SCD) 5 or more Highest Order ONE of the following medications: *Heparin 5000 units SQ TID (Preferred with Epidurals) *Enoxaparin/Lovenox 40 mg SQ daily (WT < 150 kg, CrCl > 30 mL/min) *Enoxaparin/Lovenox 30 mg SQ daily (WT < 150 kg, CrCl > 10-29 mL/min) *Enoxaparin/Lovenox 30 mg SQ BID (WT < 150 kg, CrCl > 30 mL/min) AND *Sequential Compression Device (SCD) <Tegan Kasper R - 05/23/18 09:30> Total Risk Factor Score Risk Level Prophylaxis Regimen 0-1 Low Early ambulation 2 Moderate Order ONE of the following: *Sequential Compression Device (SCD) *Heparin 5000 units SQ BID 3-4 Higher Order ONE of the following medications: *Heparin 5000 units SQ TID *Enoxaparin/Lovenox 40 mg SQ daily (WT < 150 kg, CrCl > 30 mL/min) *Enoxaparin/Lovenox 30 mg SQ daily (WT < 150 kg, CrCl > 10-29 mL/min) *Enoxaparin/Lovenox 30 mg SQ BID (WT < 150 kg, CrCl > 30 mL/min) AND/OR *Sequential Compression Device (SCD) 5 or more Highest Order ONE of the following medications: *Heparin 5000 units SQ TID (Preferred with Epidurals) *Enoxaparin/Lovenox 40 mg SQ daily (WT < 150 kg, CrCl > 30 mL/min) *Enoxaparin/Lovenox 30 mg SQ daily (WT < 150 kg, CrCl > 10-29 mL/min) *Enoxaparin/Lovenox 30 mg SQ BID (WT < 150 kg, CrCl > 30 mL/min) AND *Sequential Compression Device (SCD) <Andre Garcia D - 05/21/18 21:58> Assessment and Plan - Assessment (1) TIA (transient ischemic attack) Code(s): G45.9 - Transient cerebral ischemic attack, unspecified Status: Acute (2) Hypertension Code(s): I10 - Essential (primary) hypertension Status: Acute (3) H/O Anny thyroiditis Code(s): Z86.39 - Personal history of other endocrine, nutritional and metabolic disease Status: Chronic (4) Depression Code(s): F32.9 - Major depressive disorder, single episode, unspecified Status : Acute (5) Nutrition, metabolism, and development symptoms Code(s): R63.8 - Other symptoms and signs concerning food and fluid intake Status: Acute <Tegan Kasper - 05/23/18 09:30> (1) TIA (transient ischemic attack) Code(s): G45.9 - Transient cerebral ischemic attack, unspecified Status: Acute Plan: Patient is a 63 yo Female with significant PMHx of HTN, anxiety, panic attacks , SLE and Anny's thyroiditis presented to ED via EMS due to left facial and extremity weakness and blurry vision that started today around 3:30 PM in the setting of increased blood pressure of 190s/100s. In the ED patient was noted noticed to have initial objective left-sided weakness however that resolved upon repeat evaluation once patient had received Ativan. Vital signs on admission significant for slightly elevated blood pressures 150s/ 70s, all other vital signs within normal limits In the ED patient receive aspirin x1 and Ativan 0.5 mg IV x1. Per ED note, patient had unremarkable stress test done recently. CBC, coag profile, see CANE BURNER, UDS and UA within normal limits. Troponin x1 negative EKG: Normal sinus rhythm Imaging studies: CT head: No acute intracranial abnormality CTA head: No large vessel stenosis, aneurysm or thrombosis. CTA neck: Normal internal carotid arteries, unremarkable. CT cerebral perfusion: Results as above Chest x-ray: No acute cardiopulmonary disease On exam patient was asymptomatic, neuro exam was normal, no focal deficits were noted. Patient most likely suffered a TIA Patient placed on telemetry Neurology consulted, appreciate recommendations Follow-up: MRI brain Repeat troponins and EKG A.m. lab TSH, lipid panel, CRP, antiphospholipid abs (2) Hypertension Code(s): I10 - Essential (primary) hypertension Status: Acute Plan: Patient reports elevation of blood pressure to 190s/100s this morning. Blood pressure found to be 155/84 on admission Continue to monitor Resume amlodipine 5 mg daily tomorrow (3) H/O Anny thyroiditis Code(s): Z86.39 - Personal history of other endocrine, nutritional and metabolic disease Status: Chronic Plan: Continue with levothyroxine 100 mcg daily (4) Depression Code(s): F32.9 - Major depressive disorder, single episode, unspecified Status : Acute Plan: Stable Resume Prozac 40 mg at bedtime (5) Nutrition, metabolism, and development symptoms Code(s): R63.8 - Other symptoms and signs concerning food and fluid intake Status: Acute Plan: Fluids: Not indicated at this time Electrolytes: Replete as needed Diet: Regular DVT prophylaxis: SCDs <Andre Garcia D - 05/22/18 02:42> - Attending Attestation Patient dw resident team. Agree with assessment and plan and Observation of this patient <Tegan Kasper - 05/23/18 09:30>
[2018-05-21] MEDS ORDERED: Bisacodyl 10 MG Supp RECTAL PRN (22:12)
[2018-05-21] MEDS ORDERED: Acetaminophen 325 MG Tablet PO PRN (22:12)
[2018-05-21] MEDS ORDERED: FLUoxetine 20 MG Capsule PO SCH (22:30)
[2018-05-22 00:15] LABS: Chol/HDL Ratio 2.03 Ratio; HDL Cholesterol 107.5 mg/dL (40.0-60.0)
[2018-05-22 04:34] LABS: Anion Gap 7 meq/L (5-15); Blood Urea Nitrogen 11 mg/dL (7-18); Calcium 7.9 mg/dL (8.5-10.1); Carbon Dioxide 27.3 meq/L (21.0-32.0); Chloride 111 meq/L (98-107); Glomerular Filtration Rate 74 mL/min (>89); Glucose,Random 80 mg/dL (74-106); Potassium 3.7 meq/L (3.5-5.1); Sodium 145 meq/L (136-145)
[2018-05-22] MEDS ORDERED: Levothyroxine 100 MCG Tablet PO SCH (06:00)
[2018-05-22 06:06] LABS: Baso % (Auto) 0.8 % (0.0-2.0); Eos # (Auto) 0.2 th/mm3 (0.0-0.4); Eos % (Auto) 4.2 % (0.0-4.0); Hematocrit 31.8 % (35.0-46.0); Hemoglobin 10.4 gm/dL (11.6-15.3); Lymph # (Auto) 1.3 th/mm3 (1.0-4.8); Mean Corpuscular HGB Conc 32.7 % (32.0-36.0); Mean Corpuscular Hemoglobin 28.3 pg (27.0-34.0); Mean Corpuscular Volume 86.6 fL (80.0-100.0); Mean Platelet Volume 8.6 fL (7.0-11.0); Mono # (Auto) 0.5 th/mm3 (0.0-0.9); Mono % (Auto) 10.5 % (0.0-8.0); Neut # (Auto) 2.5 th/mm3 (1.8-7.7); Neut % (Auto) 55.5 % (16.0-70.0); Platelet Count 187 th/mm3 (150-450); Red Blood Count 3.68 mil/mm3 (4.00-5.30); Red Cell Distribution Width 15.4 % (11.6-17.2); White Blood Count 4.5 th/mm3 (4.0-11.0)
[2018-05-22 07:52] VITALS: RESP 16
[2018-05-22] MEDS ORDERED: Non-Formulary Drug (Fluoxetine [Prozac] 40 MG) PO SCH (09:00)
[2018-05-22] MEDS ORDERED: Senna/Docusate Sodium 8.6/50 MG Tablet PO SCH (09:00)
[2018-05-22] MEDS ORDERED: Gabapentin 300 MG Capsule PO SCH (09:00)
[2018-05-22] MEDS ORDERED: amLODIPine 5 MG Tablet PO SCH (09:00)
--- NOTE | 2018-05-22 10:28 | P.PNADD ---
Addendum to Inpatient Note Reason for Addendum: Additional Documentation Additional information: Please see Resident H&P from 05/21/18 -- Patient was admitted overnight for probable TIA. At the time of exam today she is back to her baseline -- she does still have underlying left arm weakness but this is residual from prior event. Patient states she feels well, wants to go home. Denies CP, SOB, VOMITING/ DIARRHEA. Abnormal Labs 05/21/18 05/21/18 05/21/18 19:00 19:00 19:00 RBC Hgb Hct Neut % (Auto) 70.8 H [place] % (Auto) Eos % (Auto) Lymph # (Auto) 0.9 L Chloride Estimated GFR Calcium Troponin I Less than 0.02 L Cholesterol 219 H HDL Cholesterol 107.5 H Urine Occult Blood Urine RBC 05/21/18 05/22/18 05/22/18 19:45 03:35 03:52 RBC Hgb Hct Neut % (Auto) [place] % (Auto) Eos % (Auto) Lymph # (Auto) Chloride 111 H Estimated GFR 74 L Calcium 7.9 L Troponin I Less than 0.02 L Cholesterol HDL Cholesterol Urine Occult Blood Moderate H Urine RBC 13 H 05/22/18 05:54 RBC 3.68 L Hgb 10.4 L Hct 31.8 L Neut % (Auto) [place] % (Auto) 10.5 H Eos % (Auto) 4.2 H Lymph # (Auto) Chloride Estimated GFR Calcium Troponin I Cholesterol HDL Cholesterol Urine Occult Blood Urine RBC GENERAL: SKIN: Warm and dry. HEAD: Atraumatic. Normocephalic. EYES: Pupils equal and round. No scleral icterus. No injection or drainage. ENT: No nasal bleeding or discharge. Mucous membranes pink and moist. NECK: Trachea midline. No JVD. CARDIOVASCULAR: Regular rate and rhythm. RESPIRATORY: No accessory muscle use. Clear to auscultation. Breath sounds equal bilaterally. GASTROINTESTINAL: Abdomen soft, non-tender, nondistended. Hepatic and splenic margins not palpable. MUSCULOSKELETAL: Extremities without clubbing, cyanosis, or edema. No obvious deformities. NEUROLOGICAL: Awake and alert. CN tested - mild left facial droop -- all other cranial nerves normal. Strength 5/5 right arm, bilateral legs. Strength 4/5 on the left arm. Director Of [employer] strength on the left arm is decreased. No pronator drift. Normal sensation PSYCHIATRIC: Appropriate mood and affect; insight and judgment normal. AP TIA vs. Symptoms due to extreme elevation in BP symptoms resolved ASA 325mg daily Increase BP control for her home meds If workup negative will dc home with close fu with Neuro and PCP. Patient seen and dw the resident team -- Dr. Tariq, Dr. Graf, Dr. Hernandez
--- NOTE | 2018-05-22 11:07 | MR ---
EXAM DATE: 05/22/2018 11:01 AM EST AGE/SEX: 63 years / Female INDICATIONS: Left sided weakness. CLINICAL DATA: This is the patient's subsequent encounter. Patient reports that signs and symptoms h ave been present for 2 days and indicates a pain score of 0/10. MEDICAL/SURGICAL HISTORY: Hypertension. Hysterectomy. left knee surgery, gastric bypass, bladde r tuck COMPARISON: No prior exams available for comparison. TECHNIQUE: Multiplanar, multisequence examination of the brain was performed without contrast. FINDINGS: Cerebrum: The ventricles are normal for age. No evidence of midline shift, mass lesion, hemorrhage or acute infarction. No extraaxial fluid collections are seen. The pituitary gland and suprasellar cistern are normal in configuration. White Matter: No significant signal abnormalities are seen in the white matter. Posterior Fossa: The cerebellum and brainstem are intact. The 4th ventricle is midline. The cerebel lopontine angle is unremarkable. The cerebellar tonsils are normal in position. Diffusion Imaging: No focal areas of restricted diffusion are seen. No evidence of acute infarction . Extracranial: The visualized portions of the orbits and paranasal sinuses are unremarkable. CONCLUSION: 1. Negative MRI of the brain. Electronically signed by: Rob Duran MD 05/22/2018 11:05 AM EST
[2018-05-22] MEDS ORDERED: Aspirin 325 MG Tablet PO SCH (11:45)
[2018-05-22 11:51] VITALS: BP 137/67; PULSE 77; TEMP 98.9; O2SAT 99
--- NOTE | 2018-05-22 11:57 | MB ---
cc: Ghulam Carter MD DATE: 05/22/2018 HISTORY OF PRESENT ILLNESS: She is a 63-year-old right-handed woman with a history of hypertension and hypothyroidism. She does not take an aspirin a day. She does take some blood pressure medications at home; and yesterday about 4:30 p.m., she felt her heart racing. She had palpitations and she checked her blood pressure. It was 198/108 and she developed left hemisensory tingling on the face, arm, and leg that lasted about 5 hours. She came into the emergency room. MEDICATIONS AT HOME: She was on gabapentin 300 a day, amlodipine, Prozac 40 a day, omeprazole, and thyroid medicine. MEDICATIONS HERE: She is on amlodipine, atorvastatin, Gabapentin, the thyroid medicine. PAST MEDICAL HISTORY: As above. Also, some panic attacks. The last one was 2 weeks ago. Fibromyalgia, spinal stenosis, herniated disk, gastric bypass. SOCIAL HISTORY: Nonsmoker or drinker, lives with her . FAMILY HISTORY: Negative for cancer, seizure, or stroke. REVIEW OF SYSTEMS: She denies any history of diabetes, hypercholesterolemia, ID, stent, angioplasty, AFib, Coumadin, history of chest pain or palpitations. No headache. No history of renal, hepatic, or pulmonary disease; Lupus; ulcer; cancer; seizure; prior stroke. PHYSICAL EXAMINATION: VITAL SIGNS: On exam, she has been in sinus rhythm here. Blood pressure now 136/65, initially 170/79. NECK: There were no carotid bruits. HEART: Regular rate and rhythm. I did not detect a murmur. NEUROLOGIC: Pupils are equal, visual jones are full. Extraocular movement intact without nystagmus. Discs are sharp. Hearing is intact to finger rub bilaterally. Face is symmetric with normal sensation. Tongue was midline. No drift. Normal strength in upper and lower extremities bilaterally. DTRs trace throughout. Toes downgoing bilaterally. Pinprick is intact throughout. She is not ataxic [id number]. Speech is fluent. She is not aphasic. DIAGNOSTIC DATA: She had a CTA of the head and neck, which was negative in the ER; and just had an MRI of the brain done, which is normal. No evidence of old or new strokes. Labs: CBC is normal. Sedimentation rate 14. UA is negative. Urine drug screen was negative. BMP is normal. Hemoglobin A1c is pending. Calcium 7.9. Troponin, CPK normal. LDL cholesterol 99. TSH normal. Coags are normal. She had a hypercoagulable screen ordered and that is pending. IMPRESSION: Hypertensive encephalopathy versus transient ischemic attack. PLAN: I have recommended 325 aspirin today and I would recommend having cardiology see her for at least a 30-day monitor with the palpitations to make sure there is no atrial fibrillation and get an echocardiogram. If the echo is negative and carotids clear, she could be discharged on the aspirin as long as her blood pressure is around 120-140 systolic. No stroke, but certainly a TIA is a consideration. 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 MD KENRICK Nolen/vj , 11:38 AM , 11:47 AM
--- NOTE | 2018-05-22 13:32 | ECHRPT ---
Indication: CVA/TIA CONCLUSIONS Normal left ventricular size. Wall thickness is measured at the upper limits of normal. The left ventricular systolic function is normal with an estimated ejection fraction in the range of 55-60%. Trace mitral valve regurgitation. There is trace tricuspid valve regurgitation. The estimated pulmonary arterial pressure is 48 mmHg. BP: / HR: Rhythm: MEASUREMENTS (Male / Female) Normal Values Technical Quality:Fair 2D ECHO LV Diastolic Diameter PLAX 4.3 cm 4.2 - 5.9 / 3.9 - 5.3 cm LV Systolic Diameter PLAX 3.0 cm IVS Diastolic Thickness 1.0 cm 0.6 - 1.0 / 0.6 - 0.9 cm LVPW Diastolic Thickness 1.0 cm 0.6 - 1.0 / 0.6 - 0.9 cm LV Relative Wall Thickness 0.5 RV Internal Dim ED PLAX 3.0 cm LVOT Diameter 2.2 cm Aortic Root Diameter 2.7 cm LA Systolic Diameter LX 3.2 cm 3.0 - 4.0 / 2.7 - 3.8 cm M-MODE AV Cusp Separation MM 1.8 cm DOPPLER AV Peak Velocity 159.0 cm/s AV Peak Gradient 10.1 mmHg LVOT Peak Velocity 106.0 cm/s LVOT Peak Gradient 4.5 mmHg AV Area Cont Eq pk 2.5 cm Mitral E Point Velocity 85.9 cm/s Mitral A Point Velocity 83.9 cm/s Mitral E to A Ratio 1.0 LV E' Lateral Velocity 10.3 cm/s Mitral E to LV E' Lateral Ratio 8.3 LV E' Septal Velocity 7.5 cm/s Mitral E to LV E' Septal Ratio 11.4 TR Peak Velocity 307.0 cm/s TR Peak Gradient 37.7 mmHg Right Atrial Pressure 10.0 mmHg Pulmonary Artery Systolic Pressu 47.7 mmHg Right Ventricular Systolic Press 47.7 mmHg PV Peak Velocity 115.0 cm/s PV Peak Gradient 5.3 mmHg FINDINGS LEFT VENTRICLE Normal left ventricular size. Wall thickness is measured at the upper limits of normal. The left ventricular systolic function is normal with an estimated ejection fraction in the range of 55-60%. RIGHT VENTRICLE Normal right ventricular size and systolic function. LEFT ATRIUM The left atrial size is normal. RIGHT ATRIUM The right atrial size is normal. ATRIAL SEPTUM Normal atrial septal thickness without atrial level shunting by limited color doppler interrogation. AORTA The aortic root and proximal ascending aorta are normal in size on limited imaging. MITRAL VALVE Trace mitral valve regurgitation. AORTIC VALVE Trileaflet aortic valve. No aortic valve stenosis or regurgitation. TRICUSPID VALVE There is trace tricuspid valve regurgitation. The estimated pulmonary arterial pressure is 48 mmHg. PULMONARY VALVE No pulmonary valve regurgitation or stenosis. VESSELS The inferior vena cava is normal in size. PERICARDIUM No pericardial effusion. Heri Jones MD, FACC (Electronically Signed) Final Date:22 May 2018 13:31
[2018-05-22 17:25] LABS: Hemoglobin A1c 5.2 % (4.3-6.0)
--- NOTE | 2018-05-22 22:27 | ECG ---
Date Performed: 05/21/2018 Time Performed: 19:30:33 PTAGE: 63 years EKG: Sinus rhythm WITH SINUS ARRHYTHMIA NORMAL ECG PREVIOUS ECG 05/21/18 6.08PM: Since the PREVIOUS TRACING , no significant change noted DOCTOR: Shoaib Rosenthal Interpretating Date/Time 05/22/2018 22:26:36
--- NOTE | 2018-05-22 22:32 | ECG ---
Date Performed: 05/21/2018 Time Performed: 18:08:02 PTAGE: 63 years EKG: Sinus rhythm NORMAL ECG PREVIOUS TRACING : 04/24/2018 11.50 DOCTOR: Shoaib Rosenthal Interpretating Date/Time 05/22/2018 22:30:47
[2018-05-23] MEDS ORDERED: amLODIPine 10 MG Tablet PO SCH (09:00)
--- NOTE | 2018-05-25 19:26 | HM ---
Date Performed: 05/22/2018 Time Performed: 14:31:00 HOOKUP DATE: 05/22/18 02:31:00 PM Wed ANALYSIS START TIME: 05/22/2018 2:36:00 PM ANALYSIS END TIME: 05/23/2018 2:40:00 PM PATIENT AGE: 63 PATIENT HEIGHT: 64 PATIENT WEIGHT: 160 DRUG LIST: ROOM G78 PATIENT DIAGNOSIS: TIA TEST NARRATIVE: The patient's average heart rate was 87 BPM. Heart rates greater than 120 B PM were noted 1% of the time. No episodes of bradycardia were noted. No pauses exceeding 2.0 sec onds were noted. 580 ventricular ectopics, which represented < 1% of the total beat count, were n oted. The highest ventricular ectopic frequency occurred from 10:00 PM to 11:00 PM Wed. During this time 200 VE(s) occurred. Ventricular ectopics were observed as 580 isolated beat(s) only. No coupl ets or runs were noted. 13 supraventricular ectopics, which represented < 1% of the total beat co unt, were noted. The highest supraventricular ectopic frequency occurred from 03:00 PM to 04:00 PM W ed. During this time 3 SVE(s) occurred. No episodes of ST depression (defined as -1.0 mm or more ) were noted in channel 1. No episodes of ST depression (defined as -1.0 mm or more) were noted in c hannel 2. No episodes of ST depression (defined as -1.0 mm or more) were noted in channel 3. DIARY I S PROVIDED WITH THE PRINT OUT TEST INTERPRETATION: Holter monitor demonstrates Sinus rhythm with a rare PVC and rare PAC. NO tachy or taryn arrhytmias are noted. Signed by : Ghulam Christian
== END 2018-05-22 18:30 | disposition home or self-care (01) ==
LOC: NEPC 17:33 → NEDA 17:33 → NEPGCP 23:40
PROVIDERS: ADMIT Family Medicine; ATTEND Family Medicine